=== PATIENT | female | born 1955 | race Two or more races ===

== ENCOUNTER 2019-01-04 08:02 | Day surgery (SDC) | payer MEDICARE, OTHER ==
[~2019-01-04] VITALS: Ht 165.1 cm; Wt 94.8 kg
[~2019-01-04 08:02] MED LIST: ASPI325T41 PO; ATOR1TAB21 PO; CLOP75TA2 PO; FLON1SPR; FURO40TA2 PO; JANU100T PO; LR 1,000 ML IV ONE; METO1TAB87 PO; PANT40TA3 PO; PROAAER10 INH; duoneb INH
[2019-01-04] MEDS ORDERED: MIDAZOLAM INJ 2 MG/2 ML VIAL (J2250) As Ordered ONE (09:30)
[2019-01-04] MEDS ORDERED: CIPRODEX OTIC SUSP 7.5ML As Ordered ONE (09:30)
[2019-01-04] MEDS ORDERED: PROPOFOL 200 MG/20 ML VIAL As Ordered ONE (09:30)
[2019-01-04] MEDS ORDERED: LIDOCAINE 2% INJ 100 MG/5 ML SDV (FOR ANES.) As Ordered ONE (09:30)
[2019-01-04] MEDS ORDERED: fentaNYL 100 MCG/2 ML INJECTION (J3010) As Ordered ONE (09:31)
[2019-01-04] MEDS ORDERED: PHENYLephrine HCL 500 MCG/5 ML (100MCG/ML) SYRINGE (J2370) As Ordered ONE (09:57)
[2019-01-04] MEDS ORDERED: ePHEDrine SULFATE 25 MG/5 ML(5MG/ML) SYRINGE As Ordered ONE (09:57)
[2019-01-04] MEDS: PERCOCET 5MG/325MG TAB PO PRN ×2 (10:29→11:18)
[2019-01-04] MEDS ORDERED: ONDANSETRON 4MG/2ML VIAL (J2405) IV PRN (10:30)
[2019-01-04] MEDS ORDERED: fentaNYL 100 MCG/2 ML INJECTION (J3010) IV PRN (10:30)
[2019-01-04] MEDS ORDERED: LR 1,000 ML IV SCH ×2 (10:30)
[2019-01-04] MEDS ORDERED: METOCLOPRAMIDE INJ 10MG/2ML VIAL (J2765) IV PRN (10:30)
[2019-01-04 12:25] VITALS: BP 171/77
== END 2019-01-04 12:30 | disposition home or self-care (01) ==
LOC: M SDC 08:02
PROVIDERS: ATTEND Otolaryngology
DX: H65.21 Chronic serous otitis media, right ear (principal); H69.82 Other specified disorders of Eustachian tube, left ear; E11.9 Type 2 diabetes mellitus without complications; I10 Essential (primary) hypertension; E78.5 Hyperlipidemia, unspecified; J44.9 Chronic obstructive pulmonary disease, unspecified; Z95.5 Presence of coronary angioplasty implant and graft; I25.10 Atherosclerotic heart disease of native coronary artery without angina pectoris; F17.210 Nicotine dependence, cigarettes, uncomplicated; Z79.82 Long term (current) use of aspirin; Z79.02 Long term (current) use of antithrombotics/antiplatelets; Z79.899 Other long term (current) drug therapy; Z88.8 Allergy status to other drugs, medicaments and biological substances
CPT/HCPCS: 69436; J2250; J2370; J3010

== ENCOUNTER 2019-10-21 20:34 | Inpatient (IN) | payer MEDICARE, OTHER ==
[~2019-10-21] VITALS: Ht 165.1 cm; Wt 90.0 kg
[~2019-10-21 20:34] MED LIST changes: -LR 1,000 ML IV ONE
[2019-10-21 23:22] VITALS: BP 138/72
[2019-10-22] VITALS: BP 138/72
[2019-10-22] MEDS ORDERED: NS 1,000 ML IV SCH (00:15)
--- NOTE | 2019-10-22 00:32 | HPEPDOC ---
[facility] Medical History & Physical Date of Admission Oct 22, 2019 Date of Service: Oct 22, 2019 Attending Physician: JOSE ELIAS WALDROP MD History and Physical CHIEF COMPLAINT: Acute kidney injury HISTORY OF PRESENT ILLNESS: 63-year-old female with past medical history of coronary artery disease, status post stent placement, COPD, hypertension and diabetes mellitus presents from [facility] for acute kidney injury. She was admitted to [facility] for chest pain, was started on antibiotics for presumed sepsis and received Toradol for pain control. She developed worsening acute kidney injury today, last creatinine was greater than 4 with hyperkalemia. Patient is currently comfortable in bed, without any complaints, has Mcfarland with small amounts of slightly colored urine. She denies any chest pain, shortness of breath, nausea, vomiting, diarrhea or constipation. 10 point review of system is negative except for above PAST MEDICAL HISTORY: 1. Coronary artery disease. 2. Hypertension. 3. Diabetes mellitus. 4. Hyperlipidemia. 5. COPD PAST SURGICAL HISTORY: 1. Coronary stent placement. 2. Appendectomy. SOCIAL HISTORY: Smokes half a pack per day. Denies alcohol use. Denies drug use FAMILY HISTORY: Sr. had kidney failure ALLERGIES: Please see below. HOME MEDICATIONS: Please see below. PHYSICAL EXAMINATION: VITAL SIGNS: Please see below. GENERAL: No distress HEENT: Normocephalic, atraumatic, moist mucous membranes NECK: Supple CARDIOVASCULAR EXAMINATION: S1, S2, no murmurs RESPIRATORY EXAMINATION: Clear to auscultation, no wheezing ABDOMINAL EXAMINATION: Soft, nontender, nondistended, positive bowel sounds EXTREMITIES: Range of motion intact SKIN: No rash NEUROLOGICAL EXAMINATION: Alert and oriented 3, no focal deficits PSYCHIATRIC EXAMINATION: Calm and cooperative LABORATORY DATA: See below. MICROBIOLOGY: Please see below. ASSESSMENT: 63-year-old female with multiple medical comorbidities, [facility] with acute kidney injury. . PLAN: 1. Acute kidney injury Possibly due to NSAIDs/diuretics, gentle IV hydration, repeat BMP, renal ultrasound pending. 2. Coronary artery disease. Status post stent placement, continue aspirin, Plavix and statin. 3. Diabetes mellitus. Sliding scale insulin coverage at meals and at bedtime 4. COPD Stable, continue home regimen. Supplemental oxygen as needed to maintain O2 sats between 88-92% DVT prophylaxis: Heparin subcutaneous. GI prophylaxis: home PPI Home Medications Scheduled Aspirin (Aspirin EC) 325 Mg Tablet.dr, 325 MG PO DAILY Atorvastatin Calcium (Atorvastatin Calcium) 20 Mg Tablet, 20 MG PO DAILY Clopidogrel Bisulfate (Clopidogrel) 75 Mg Tablet, 75 MG PO DAILY Fluticasone Propionate (Flonase Allergy Relief) 9.9 Ml Media.susp, 50 MCG NA DAILY Furosemide (Furosemide) 40 Mg Tablet, 40 MG PO BID Metoprolol Tartrate (Metoprolol Tartrate) 25 Mg Tablet, 25 MG PO DAILY Pantoprazole Sodium (Pantoprazole Sodium) 40 Mg Tablet.dr, 40 MG PO BID Sitagliptin Phosphate (Januvia) 100 Mg Tablet, 100 MG PO DAILY Scheduled PRN Albuterol Sulfate (Proair Hfa) 8.5 Gm Hfa.aer.ad, 2 PUFF INH TIDP PRN for SOB/WHEEZING [duoneb] , 1 DOSE INH TIDP PRN for SOB/WHEEZING Allergies Coded Allergies: prochlorperazine (Verified Allergy, Severe, tongue swelling, facial spasms, throat tightness, 01/02/19) sumatriptan (Verified Adverse Reaction, Intermediate, rapid HR, diaphoretic, 01/02/19) A-FIB/CHADSVASC A-FIB History Current/History of A-Fib/PAF?: No JOSE ELIAS WALDROP MD Oct 22, 2019 00:32
[2019-10-22] MEDS ORDERED: DEXTROSE 50% 50 ML SYRINGE IV PRN (00:45)
[2019-10-22] MEDS ORDERED: GLUCAGON INJ 1MG VIAL SC PRN (00:45)
[2019-10-22] MEDS ORDERED: GLUCOSE 4GM CHEW TABLET PO PRN (00:45)
[2019-10-22] MEDS ORDERED: IPRA0.00 NEB (00:46)
[2019-10-22 00:53] LABS: HEMATOCRIT 31.3 % (36.0-47.0); HEMOGLOBIN 9.7 g/dl (12.0-15.5); MEAN CORPUSCULAR HEMOGLOBIN 30.3 pg (27.0-33.0); MEAN CORPUSCULAR VOLUME 97.8 fl (80.0-96.0); PLATELET COUNT, AUTOMATED 334 10^3/uL (150-450); WHITE BLOOD COUNT 22.5 10^3/uL (4.0-10.0)
[2019-10-22 01:05] LABS: ALBUMIN 2.2 GM/DL (3.2-5.2); BILIRUBIN,TOTAL 0.1 MG/DL (0.2-1.0); CALCIUM LEVEL 7.6 MG/DL (8.8-10.2); CREATININE FOR GFR 4.16 MG/DL (0.55-1.30); GLOMERULAR FILTRATION RATE 11.5 (>45); POTASSIUM SERUM 5.4 MEQ/L (3.5-5.1); TOTAL PROTEIN 6.9 GM/DL (6.4-8.2)
[2019-10-22] MEDS ORDERED: PATIROMER SORBITEX CALCIUM 8.4 GM POWDER PACKET (VELTASSA) PO ONE (03:00)
--- NOTE | 2019-10-22 03:29 | REPVR ---
PROCEDURE INFORMATION: Exam: US Retroperitoneal Limited, Kidneys Exam date and time: 10/22/2019 3:00 AM Age: 63 years old Clinical indication: Abnormal findings; Abnormal lab test; Abnormal kidney function lab tests; Additional info: Ruy TECHNIQUE: Imaging protocol: Real-time ultrasound of the retroperitoneum with image documentation. Examination was focused on the kidneys. COMPARISON: No relevant prior studies available. FINDINGS: Right kidney: The right kidney measures 12.3 cm in its cephalocaudad dimension and 7.2 x 5.4 cm in diameter. The renal parenchyma is echogenic. There are several simple appearing cysts with the largest noted in the upper pole measuring 3.7 x 3.1 x 2.5 cm and in the lower pole measuring 3.5 x 2.9 x 2.4 cm. No mass or hydronephrosis. Left kidney: The left kidney measures 12.6 cm in its cephalocaudad dimension and 6.0 x 4.6 cm in diameter. The parenchyma is echogenic. There are several cysts measuring 1.2 x 1.4 x 1.2 cm and 2.1 x 1.8 x 2.2 cm in the upper pole. No mass or hydronephrosis. Bladder: The urinary bladder is collapsed with Mcfarland in position. IMPRESSION: 1. Echogenic renal parenchyma consistent with medical renal disease. 2. Bilateral renal cysts. 3. Otherwise negative renal sonogram. No hydronephrosis. Electronically signed by: Jose Angel Ibanez On 10/22/2019 03:29:03 AM
[2019-10-22 04:00] VITALS: BP 151/70
[2019-10-22] MEDS: ACETAMINOPHEN TAB 650MG DOSE (2X325MG) PO PRN (05:19)
[2019-10-22 08:00] VITALS: BP 168/85
[2019-10-22] MEDS: HEPARIN SOD (PORCINE) 5000UNITS/ML VIAL (J1644 PER 1000UNITS) SC SCH ×2 (09:44→21:09)
[2019-10-22] MEDS: ASPIRIN ENTERIC 325 MG TAB PO SCH (09:44)
[2019-10-22] MEDS: ATORVASTATIN 20 MG TAB PO SCH (09:47)
[2019-10-22] MEDS: METOPROLOL TART 25 MG TABLET PO SCH (09:47)
[2019-10-22] MEDS: CLOPIDOGREL 75 MG TAB PO SCH (09:47)
[2019-10-22] MEDS: PANTOPRAZOLE 40MG TAB (PROTONIX) PO SCH ×2 (09:47→21:09)
[2019-10-22] MEDS: HumaLOG INSULIN (NovoLOG) PER UNIT SC SCH ×4 (09:55→21:00)
[2019-10-22 10:17] LABS: HEMATOCRIT 31.6 % (36.0-47.0); HEMOGLOBIN 9.8 g/dl (12.0-15.5); MEAN CORPUSCULAR VOLUME 96.6 fl (80.0-96.0); PLATELET COUNT, AUTOMATED 360 10^3/uL (150-450); RED BLOOD COUNT 3.27 10^6/uL (4.00-5.40); WHITE BLOOD COUNT 21.9 10^3/uL (4.0-10.0)
[2019-10-22 10:37] LABS: C REACTIVE PROTEIN QUANTITATIV 9.98 MG/DL (0.00-0.30); CALCIUM LEVEL 7.7 MG/DL (8.8-10.2); CREATININE FOR GFR 4.15 MG/DL (0.55-1.30); GLOMERULAR FILTRATION RATE 11.5 (>45)
[2019-10-22 10:40] LABS: ERYTHROCYTE SEDIMENTATION RATE 125 mm/hr (0-30)
[2019-10-22] MEDS: cefTRIAXone SOD 2 GM in D5W MINI-BAG PLUS 50 ML IV SCH (10:48)
--- NOTE | 2019-10-22 10:56 | REP ---
CHEST X-RAY: Two views. HISTORY: Elevated white blood cell count. COMPARISON CHEST X-RAY: October 03, 2008. FINDINGS: There is mild cardiac enlargement. Cardiothoracic ratio is 57.2%. Pulmonary vasculature is not increased. There are linear opacities in the right base consistent with plate-like atelectasis. There are two tiny linear plate-like atelectatic densities in the left base. Pleural angles are sharp. No significant bony abnormality. IMPRESSION: The left base and right perihilar plate-like atelectasis. No definite infiltrate. Mild cardiomegaly. Electronically Signed by Riley Ortiz MD 10/22/2019 02:55 P
[2019-10-22 11:46] VITALS: BP 140/65
[2019-10-22] MEDS ORDERED: AZITHROMYCIN INJ 500 MG, VIAL MATE ADAPTER 1 EACH in D5W 250 ML IV SCH (12:00)
--- NOTE | 2019-10-22 12:25 | REP ---
REASON: Leukocytosis. There are no priors for comparison. The lack of intravenous contrast and oral bowel preparatory contrast decreases the sensitivity of the exam. The patient is status post cholecystectomy. There are no gross liver or spleen abnormalities. The pancreas is atrophic but otherwise grossly within normal limits. There is bilateral low density adrenal gland thickening. There are multiple mixed and low density structures arising from each kidney too numerous or count or individually assess with the smaller lesions being based on the renal cortex and having much higher than water density Hounsfield unit readings while the larger of the structures have water density Hounsfield unit readings. In addition, there are multiple bilateral nonobstructing nephroliths some of which are renovascular in origin. There is bilateral perinephric stranding. There is an infrarenal abdominal aortic aneurysm having a maximal AP dimension of 3.9 cm outside wall to outside wall and a length of approximately 7.7 cm. This is difficult to evaluate without intravenous contrast. No free fluid or free air is seen in the abdomen or pelvis. The intra-abdominal and intrapelvic bowel loops and their mesenteries are within normal limits. There is no evidence of an intra-abdominal or intrapelvic mass or adenopathy. Bone window technique throughout the examination shows the osseous structures to be within normal limits for the patient's age. IMPRESSION: 1. Abdominal aortic aneurysm as described above. 2. Bilateral renal abnormalities has described above. Pre- and postcontrast-enhanced renal MRI is recommended for further evaluation. If the patient is a candidate for MRI pre- and post gadolinium enhanced renal MRI could be obtained if the patient's creatinine is too high to allow for the iodinated contrast injection for CT. Electronically Signed by Pankaj Moreno DO 10/22/2019 04:02 P
--- NOTE | 2019-10-22 12:30 | REP ---
REASON: Leukocytosis. There are no priors. The lack of intravenous contrast decreases the sensitivity of the exam. Multiple nonenlarged mediastinal nodes are present. Hilar adenopathy cannot be ruled out. There are no pleural or pericardial effusions. There is mild pericardial thickening. Evaluation of the osseous structures show the osseous structures to be within normal limits for the patient's age. Evaluation of the lung restrepo show curvilinear bibasilar opacities likely subsegmental atelectatic changes and/or fibrotic changes. There are no significant masses or nodules. Early emphysematous changes are seen in the lung apical regions bilaterally. There is evidence of early cylindrical bronchiectasis particularly in the lung bases. IMPRESSION: Findings as described above. Basilar opacities likely subsegmental atelectatic changes and/or fibrotic changes. Other findings as described above. Electronically Signed by Pankaj Moreno DO 10/22/2019 04:03 P
[2019-10-22] MEDS ORDERED: oxyCODONE 5MG TAB PO ONE (12:45)
[2019-10-22 13:05] LABS: PERCENT SATURATION 10.7 % (13.2-45.0)
--- NOTE | 2019-10-22 13:25 | CR ---
DATE OF CONSULTATION: 10/22/2019 REQUESTING PHYSICIAN: Dr. Kelli Willson CONSULTING PHYSICIAN: Dr. Gaona REASON FOR CONSULTATION: Management of acute renal failure. CHIEF COMPLAINT: The patient was transferred from [facility] because of acute kidney injury. HISTORY OF PRESENT ILLNESS: Thong Rowan is 63-year-old female with past medical history of hypertension, coronary artery disease, diabetes mellitus type 2, history of chronic obstructive pulmonary disease (COPD) and coronary artery stenting in the past. She initially presented to [facility] with chest pain. She was admitted under the hospitalist service and cardiology saw her there. She was given empiric antibiotics for possible sepsis and she was given Toradol for chest pain. The patient became oliguric after use of Toradol and she developed acute kidney injury with a creatinine of 4.4 along with hyperkalemia. Potassium was more than 6. There was no nephrology service available in [facility], so patient was discussed with myself by Dr. Saldana and she was transferred overnight under the hospitalist service. Nephrology service was called onboard for further management of acute renal failure. I saw and evaluated the patient today morning at the bedside. The patient does not followup with nephrology but she does report that there is positive family history of "lumpy kidneys in the family members." Her sister developed renal failure. She needed a transplant that worked for 12 years and her sister is . There is another sister who has renal failure as well and she a few years ago as well. The patient's mother and aunt also had renal failure. PAST MEDICAL HISTORY: Past medical history of hypertension, diabetes mellitus type 2, hyperlipidemia, COPD, and coronary artery disease. PAST SURGICAL HISTORY: Status post coronary artery stent placement, history of appendectomy in the past. ALLERGIES: The patient is allergic to SUMATRIPTAN and PROCHLORPERAZINE. FAMILY HISTORY: As mentioned in history of present illness (HPI), there is positive history of her "lumpy kidneys in the family members", history of renal failure in mother and two sisters. One sister had kidney transplant as well. REVIEW OF SYSTEMS: Constitutional: She denies any fevers or chills at this time. Eyes: She denies any blurry vision, double vision. ENT: She denies any dysphagia or odynophagia. Cardiovascular: She does report some central chest pain. She denies any palpitation. Respiratory: She denies any shortness of breath or cough. Gastrointestinal (GI): She denies any nausea, vomiting. Genitourinary: She denies any dysuria or hematuria. She does report decreased urine output and she currently has a Mcfarland catheter. Musculoskeletal: She denies any muscle aches and pains. Skin: She denies any rashes or ulcers. Hematology/Oncology: She denies any easy bleeding or bruising. Central Nervous System (SHAKE SAWYER): She denies any strokes or seizures. All other review of systems is negative. PHYSICAL EXAMINATION: General: The patient is awake, alert, oriented times three, laying in bed. Vital Signs: Temperature is 97.1 degrees Fahrenheit, blood pressure 140/65, pulse is 82, respiratory rate of 20, saturating 95% on nasal cannula at 3 liters. Intake and Output: Urine output recorded so far since overnight is 575 mL. Head/Neck Exam: Extraocular muscles intact. Pupils equally round and reactive to light. Mucous membranes are moist. Neck is supple. There is no jugular venous distention (JVD). Cardiovascular: S1, S2, regular rate. No edema of the bilateral lower extremities. Respiratory: Chest is clear to auscultation bilaterally. Bilateral equal air entry. No rales or rhonchi. Abdomen: Soft. Obese. Positive bowel sounds. Nontender. No organomegaly. Genitourinary: She has an indwelling Mcfarland catheter. There is some cloudy urine in the bag. Musculoskeletal: No clubbing or cyanosis. Pulses are 2+. SHAKE SAWYER: No focal deficit. Power is 5/5 in all extremities. LABORATORY REVIEW: CBC showed a WBC of 22.5 on arrival, it is 21.9 today. Hemoglobin is 9.8. Platelets are 360. There is no urinalysis available. BMP showed sodium 134, potassium 5, chloride 100, bicarbonate is 20, BUN 70, creatinine is 4.1, calcium 7.7. C-reactive protein is 9.9. Procalcitonin is pending. Blood cultures are pending. IMAGING: A chest x-ray was done today morning, which showed left base and right perihilar platelike atelectasis. No definitive infiltrate. Renal ultrasound was done, which showed echogenic renal parenchyma consistent with medical renal disease. There were bilateral renal cysts on both sides. There was no evidence of any mass or hydronephrosis. CURRENT INPATIENT MEDICATIONS: - The patient is getting azithromycin 500 mg IV daily. - Rocephin 2 grams IV daily - She is getting normal saline at 80 mL/h, which I am stopping and starting the patient on half normal saline plus 75 mEq of bicarbonate at 80 mL/h. - She is getting Tylenol as needed. - Proventil as needed - aspirin 325 mg by mouth daily - Lipitor 20 mg at bedtime - Plavix 75 mg by mouth daily - heparin 5000 units every 12 hours - insulin lispro sliding scale - metoprolol tartrate 25 mg by mouth daily - Protonix 40 mg by mouth twice a day - She was given one dose of Veltassa. ASSESSMENT: 63-year-old female with past medical history of diabetes mellitus type 2, coronary artery disease, hypertension, hyperlipidemia, admitted this time with acute renal failure. PLAN: 1. Acute renal failure. Looking at the patient's imaging and history of polycystic kidney disease requiring transplant in one of her sisters most likely the patient has baseline chronic kidney disease secondary to polycystic kidney disease and this time she developed acute renal failure due to use of Toradol. The patient is nonoliguric at this time. I am hopeful that her renal function should improve to baseline. I will try to get her baseline renal function from the primary care office. Continue to monitor intake and output. Continue gentle IV fluid hydration. There is no urgent need of hemodialysis at this time. However, if the patient develops worsening hyperkalemia and metabolic acidosis, then she might need to do hemodialysis for a few days before her renal function improves. 2. Hyperkalemia. It is secondary to acute renal failure. Potassium was 5.4 on arrival. It is 5 today, which is within the acceptable range. Avoid the high potassium foods at this time. 3. Metabolic acidosis. It is secondary to acute renal failure. She has been started on bicarbonate containing fluid that should help improve the acidosis as well. 4. History of coronary artery disease. The patient is complaining of chest pain. She is currently on aspirin and Plavix. She is also on to atorvastatin. Continue the current dose of metoprolol as well. 5. Diabetes mellitus, type 2. Okay to continue current dose of insulin sliding scale. Avoid use of metformin in this patient at this time. 6. Leukocytosis and elevated C-reactive protein. The patient got a CAT scan of the chest, abdomen, and pelvis. A source of the infection is not known. She is adequately covered with azithromycin and ceftriaxone at this time. Cultures are still pending. 7. Anemia and chronic kidney disease. Hemoglobin level is suboptimal. I am going to check the iron, B12, and folic acid level. Thank you for involving me in the care of this patient. I shall be happy to follow the patient along with you tomorrow morning.
[2019-10-22] MEDS ORDERED: SODIUM BICARBONATE 75 MEQ in NS 0.45% 1,000 ML IV SCH (15:00)
--- NOTE | 2019-10-22 18:05 | IPN ---
DATE: 10/22/2019 Patient says that she was not feeling well at home and presented to [facility] when she was told that she had some pneumonia, treated with intravenous (IV) antibiotics and transferred to [facility] due to acute renal failure, creatinine of 4. Patient says that she was taking Tylenol and aspirin; aspirin was every other day, did not take any nonsteroidal anti-inflammatory drugs (NSAIDS). No diarrhea or vomiting at [facility]. Patient says that she currently has sputum production, white. No chills or fever overnight. Telemetry otherwise unremarkable, urinating via Mcfarland catheter 575 out. Vital Signs: Temperature 97.3, pulse 82, respiratory rate 21, blood pressure 168/85, 99% on 3 liters nasal cannula. Generally, patient does have some dyspnea on conversation, about 5 to 6 word dyspnea with use of respiratory accessory muscles. No jugular venous distention (JVD) or thyromegaly. Lungs: Diminished, bibasilar crackles. Heart: S1, S2, sinus rhythm. Abdomen is soft, obese, nontender, nondistended. Extremities: Trace edema. Repeat laboratory data is pending. White count 22, hemoglobin 9.7, hematocrit 31, platelet count 334. Metabolic panel is notable for creatinine of 4.16, repeat is unavailable. CURRENT MEDICATIONS: - heparin subcu - insulin - aspirin - Lipitor - Plavix - metoprolol - Protonix - albuterol - normal saline 80 an hour ASSESSMENT AND PLAN: This is a 63-year-old female, transferred from [facility] with cough sob and renal failure, history of coronary artery disease, hypertension, diabetes, chronic obstructive pulmonary disease (COPD), and hyperlipidemia. CURRENT ISSUES: 1. Acute kidney injury. nephrology consulted.family h/o polycystic kidney dz, Renal ultrasound has no hydronephrosis or kidney stone. Monitor intake and output, daily weights and strict fluid restriction. Obtain CT abdomen and pelvis and CT chest. on iv bicarb gtt. ua urine cx. 2. sepsis due to b/l pyelo. White count is elevated at 22,000. started on iv ceftriaxone until urine cx returns. 3. Hypertension, stable. Resumed on home medications. 4. Obesity. Body mass index (BMI) of 34, complicating her care. [facility]ALLS HOSPITALAdrianna
[2019-10-22 20:00] VITALS: BP 176/85
[2019-10-22] MEDS: oxyCODONE 5MG TAB PO PRN (21:09)
--- NOTE | 2019-10-23 00:02 | ECHO ---
DATE OF PROCEDURE: 10/22/2019 REFERRING PHYSICIAN: Dr. Sinai Foss INDICATION: Dyspnea. Height 165 cm, weight 94 kg. DIMENSIONS: IVS: 1.4 LV: 5.2 LVPW: 1.4 LA: 4.3 Aorta: 2.7 IVC: 2.3 Mitral E wave velocity: 101 A wave: 79 E prime septal: 3.7 E prime lateral: 3.7 FINDINGS: The study is of very limited technical quality with poor visualization. The patient is in sinus rhythm. Left ventricle has normal size. Mild to moderate left ventricular hypertrophy is present. Overall there is low normal LV systolic function based on somewhat limited views. I estimate ejection fraction (EF) around 50-55%. Subtle wall motion abnormalities that are segmental in nature cannot be ruled out. Right ventricle was relatively poorly seen but does not appear grossly enlarged and is normally contractile. Both atria are enlarged. Aortic valve is sclerotic but it has three cusps and relatively preserved mobility. There are mild degenerative abnormalities of mitral valve with mitral annular calcifications. Tricuspid valve appears normal. Pulmonic valve was not well seen. No pericardial effusion is noted. Inferior vena cava is dilated, and there is limited collapse with inspiration indicative of high central venous pressure. Aortic root appears normal. Aortic arch was not well seen. Abdominal aorta was not visualized at all. Doppler interrogation reveals competent aortic valve without significant stenosis or insufficiency. There is mild to moderate mitral insufficiency and mild tricuspid insufficiency. Calculated pulmonary artery pressure is at least around 50 mmHg corresponding to moderate pulmonary hypertension. Mitral inflow pattern and tissue Doppler imaging of mitral annulus revealed grade 2 diastolic dysfunction. CONCLUSIONS: 1. Study is of fair technical quality was limited visualization. The patient is in sinus rhythm. 2. Normal left ventricular (LV) size with mild to moderate left ventricular hypertrophy (LVH), low normal LV systolic function with estimated left ventricular ejection fraction (LVEF) 50-55% and grade 2 diastolic dysfunction. 3. Aortic sclerosis but no stenosis or insufficiency. 4. Mild to moderate mitral insufficiency. 5. High central venous pressure and at least moderate pulmonary hypertension. COMMENT: Subacute bacterial endocarditis (SBE) prophylaxis is not recommended. The study is overall most consistent with hypertensive heart disease with likely secondary pulmonary hypertension due to diastolic dysfunction.
[2019-10-23 04:00] VITALS: BP 188/102
[2019-10-23] MEDS: oxyCODONE 5MG TAB PO PRN ×3 (04:03→22:23)
[2019-10-23 05:29] LABS: HEMOGLOBIN 9.5 g/dl (12.0-15.5); MEAN CORPUSCULAR HEMOGLOBIN 29.7 pg (27.0-33.0); MEAN CORPUSCULAR HGB CONC 31.7 g/dl (32.0-36.5); MEAN CORPUSCULAR VOLUME 93.8 fl (80.0-96.0); PLATELET COUNT, AUTOMATED 366 10^3/uL (150-450); WHITE BLOOD COUNT 12.4 10^3/uL (4.0-10.0)
[2019-10-23 05:41] LABS: CALCIUM LEVEL 7.4 MG/DL (8.8-10.2); CREATININE FOR GFR 3.7 MG/DL (0.55-1.30); GLOMERULAR FILTRATION RATE 13.2 (>45)
[2019-10-23 08:00] VITALS: BP 152/88
[2019-10-23] MEDS: HumaLOG INSULIN (NovoLOG) PER UNIT SC SCH ×4 (08:44→22:23)
[2019-10-23] MEDS: ASPIRIN ENTERIC 325 MG TAB PO SCH (08:45)
[2019-10-23] MEDS: HEPARIN SOD (PORCINE) 5000UNITS/ML VIAL (J1644 PER 1000UNITS) SC SCH ×2 (08:45→22:22)
[2019-10-23] MEDS: ATORVASTATIN 20 MG TAB PO SCH (08:45)
[2019-10-23] MEDS: PANTOPRAZOLE 40MG TAB (PROTONIX) PO SCH ×2 (08:45→22:21)
[2019-10-23] MEDS: CLOPIDOGREL 75 MG TAB PO SCH (08:45)
[2019-10-23] MEDS: METOPROLOL TART 25 MG TABLET PO SCH (08:46)
[2019-10-23] MEDS: amLODIPine 5 MG TAB PO SCH (08:46)
[2019-10-23] MEDS: cefTRIAXone SOD 2 GM in D5W MINI-BAG PLUS 50 ML IV SCH (11:24)
[2019-10-23 12:00] VITALS: BP 162/86
[2019-10-23] MEDS: FERROUS GLUCONATE 324 MG TAB PO SCH (12:19)
[2019-10-23] MEDS: BICITRA 30ML SOLN UDC PO SCH ×2 (12:19→22:21)
[2019-10-23] MEDS: ALBUTEROL 90 MCG/ACT 8GM HFA INHALER INH PRN (13:03)
[2019-10-23 16:00] VITALS: BP 146/80
--- NOTE | 2019-10-23 16:58 | IPN ---
DATE: 10/23/2019 SUBJECTIVE: The patient was seen and examined at the bedside today morning. She is afebrile, hemodynamically stable. Her blood pressures are elevated. She is making more urine. There is slight improvement in the creatinine today. The patient has developed hematuria through the catheter, and she feels like she might have tugged on the catheter. She denies any other active complaints. OBJECTIVE: Vital signs: Temperature is 97.1 degrees Fahrenheit, blood pressure 152/88, pulse is 90, respiratory of 17, saturating 93% on room air. Intake and output: Urine output recorded is 1800 mL yesterday, 375 mL so far today since overnight. Weight in the bed scale is 99.2 kg. PHYSICAL EXAMINATION: General: The patient is awake, alert, oriented times three, laying in bed, in no apparent distress. Head and neck exam: Extraocular muscles intact. Pupils equally round and reactive to light. Mucous membranes are moist. Neck is supple. There is no jugular venous distention (JVD). Cardiovascular: S1, S2, regular rate. No edema of the bilateral lower extremities. Respiratory: Chest is clear to auscultation bilaterally. Bilateral equal air entry. No rales or rhonchi. Abdomen: Soft, obese, positive bowel sounds. Nontender. No organomegaly. Genitourinary: She has an indwelling Mcfarland catheter. Urine in the bag is bloody. Musculoskeletal: No clubbing or cyanosis. Pulses are 2+. Central nervous system ([employer]): No focal deficit. Power is 5/5 in all extremities. LAB REVIEW: CBC showed a WBC of 12.4, hemoglobin 9.5, platelets are 366. Urinalysis done yesterday showed 2+ protein and 3+ blood, too numerous to count RBCs. BMP done today morning showed sodium 132, potassium 5, chloride 102, bicarbonate 20, BUN 73, creatinine is 3.7. CURRENT INPATIENT MEDICATIONS: The patient's medications were all reviewed by myself. She was getting half-normal saline with 75 mEq of bicarb. She has received 1 liter so far, but I have stopped the fluids because of elevated blood pressures. She continues to be on IV ceftriaxone. I have started the patient on amlodipine 5 mg daily, and she reports that she takes amlodipine at home as well, and she has been started on Bicitra 30 mL by mouth twice a day. No other significant change in the medications today as compared with yesterday. ASSESSMENT/PLAN: 1. Acute renal failure. The patient has polycystic kidney disease and on top of that she was given Toradol at the outside hospital, which caused acute renal failure. However, the patient is making more urine with the IV fluid hydration. Creatinine is coming down. I am hopeful that we should be able to avoid hemodialysis. Renal function is gradually improving. 2. Metabolic acidosis. The patient was given IV bicarb in the fluids. However, IV fluids are being stopped because of high blood pressure. I have started the patient on oral Bicitra 30 mL twice a day. 3. Hypertension. The patient has hypertension, most likely associated with polycystic kidney disease. She is not a candidate for angiotensin-converting enzyme (VANDANA) or ARB at this time because of acute renal failure. Continue metoprolol. I have added amlodipine 5 mg by mouth daily. 4. History of coronary artery disease. Continue current dose of aspirin, Plavix and atorvastatin, along with metoprolol. 5. Hematuria. Most likely is traumatic. I am going to have the Mcfarland catheter removed. 6. Diabetes mellitus, type 2. Continue current dose of insulin sliding scale. 7. Leukocytosis and elevated C-reactive protein. Continue current dose of ceftriaxone. WBC count is improving. 8. Iron deficiency anemia. She has been started on oral iron. IV iron will be given after leukocytosis and infection counts get better.
[2019-10-23 17:30] VITALS: BP 158/80
--- NOTE | 2019-10-23 17:31 | IPNPDOC ---
Date Seen The patient was seen on 10/23/19. Progress Note SUBJECTIVE: Complains of some epigastric discomfort similar to hiatal hernia pain, chronic. IVF stopped due to BP high, Cr improving slowly, nephrology following closely. U/O good, denies chest pain, n/v/d, fevers, shortness of breath. OBJECTIVE: VITAL SIGNS: Please see below PHYSICAL EXAMINATION: CONSTITUTIONAL: No acute distress, resting comfortably, AAO x 3 EYES: PERRLA, EOM intact HENT, MOUTH: Normocephalic, atraumatic, moist mucous membranes NECK: SUPPLE, no JVD, no lymphadenopathy, no carotid bruit CV: Regular rate and rhythm, S1S2 normal, no murmurs/rubs/gallops RESPIRATORY: Clear to auscultation bilaterally, no rales/rhonchi/wheezes GI: Abdominal discomfort, epigastric. Obese abd. BS positive in 4 quadrants, soft,nondistended, no rebound or guarding, no organomegaly : Deferred MUSCULOSKELETAL: Normal ROM. No cyanosis, clubbing, swelling, joint deformity, extremity edema INTEGUMENTARY: Intact, no rashes, no lesions, no erythema NEUROLOGIC: Cranial Nerves II-XII are intact, no focal deficits PSYCHIATRIC: Mood and affect are normal CURRENT MEDICATIONS: Please see below LABORATORY DATA: Please see below IMAGING: CT abd/pelvis: 1. Abdominal aortic aneurysm as described above. 2. Bilateral renal abnormalities has described above. Pre- and postcontrast-enhanced renal MRI is recommended for further evaluation. If the patient is a candidate for MRI pre- and post gadolinium enhanced renal MRI could be obtained if the patient's creatinine is too high to allow for the iodinated contrast injection for CT. ASSESSMENT: 63 y/o F admitted for bilateral pyelonephritis, resolved sepsis. PLAN: 1. Bilateral pyelonephritis, resolved sepsis. WBC 12K from 22K. Afebrile. UCx pending. C/w ceftriaxone, daily CBC 2. Acute renal failure likely 2/2 to polycystic kidney disease (PCKD) and medication (toradol). Cr slightly improved but still elevated at 3.7. Stopped bicarb fluid due to HTN, avoid nephrotoxic medications. Making good urine. Bicitra BID. Nephrology following. 3. Metabolic acidosis. C/w bicitra, IV bicarb started. F/u daily labs. Nephrolog y following. 4. HTN likely 2/2 to PCKD . BP 180's systolic. Not candidate for ACEi, ARB due to BRIGITTE. Stopped IVFs. Started amlodipine, monitor closely. 5. Abdominal aortic aneurysm, incidental finding on CT abd/pelvis. F/u with regularly scheduled US outpatient by PCP. 6. History of coronary artery disease. Denies chest pain, sob. Continue current dose of aspirin, Plavix, atorvastatin, metoprolol. 7. Hematuria likely traumatic. Removing orozco today and will see how urine looks. Monitor CBC. 8. Diabetes mellitus, type 2. BS controlled. C/w AC/HS blood sugar checks, consistent carb diet, ISS. 9. Iron deficiency anemia. C/w PO iron supplement. Would benefit from IV iron after leukocytosis and infection counts get better. 10. DVT px. Heparin. DISPOSITION: Currently admitted under inpatient status. Plan is discharge home when medically improved. VS, I&O, 24H, Fishbone Vital Signs/I&O Vital Signs Date Time Temp Pulse Resp B/P (MAP) Pulse Ox O2 Delivery O2 Flow Rate FiO2 10/23/19 16:23 18 Room Air 10/23/19 16:00 96.5 71 146/80 (102) 98 10/23/19 16:00 3.0 I&O- Last 24 Hours up to 6 AM 10/23/19 05:59 Intake Total 900 ml Output Total 1725 ml Balance -825 ml Laboratory Data 24H LABS Laboratory Tests 2 10/22/19 17:51: Bedside Glucose (Misc Panel) 118H 10/22/19 18:00: 10/22/19 21:11: Bedside Glucose (Misc Panel) 176H 10/23/19 05:06: Nucleated Red Blood Cells % (auto) 0.0, Anion Gap 10, Glomerular Filtration Rate 13.2L, Calcium Level 7.4L 10/23/19 12:20: Bedside Glucose (Misc Panel) 144H 10/23/19 17:22: Bedside Glucose (Misc Panel) 115 CBC/BMP Laboratory Tests 10/23/19 05:06 Microbiology Microbiology 10/22/19 Urine Culture - Final, Complete 10/22/19 Respiratory Virus Panel (PCR) (JUAN) - Final, Complete 10/22/19 Blood Culture - Preliminary, Resulted No growth after 24 hours . All specim... 10/22/19 Blood Culture - Preliminary, Resulted No growth after 24 hours . All specim... Current Medications Current Medications Medications (Trade) Dose Ordered Sig/Ronit Route PRN Reason Start Time Stop Time Status Last Admin Dose Admin Acetaminophen (Tylenol Tab) 650 mg Q6HP PRN PO PAIN / FEVER 10/22/19 04:00 10/22/19 05:19 Albuterol Sulfate (Proventil, Ventolin Hfa) 2 puff TIDP PRN INH SOB/WHEEZING 10/22/19 01:00 10/23/19 13:03 Amlodipine Besylate (Norvasc) 5 mg DAILY PO 10/23/19 09:00 10/23/19 08:46 Aspirin (Ecotrin) 325 mg DAILY PO 10/22/19 09:00 10/23/19 08:45 Atorvastatin Calcium (Lipitor) 20 mg DAILY@0900 PO 10/22/19 09:00 10/23/19 08:45 Azithromycin 500 mg/IV Miscellaneous Supplies 1 each/ Dextrose 255 ml @ 255 mls/hr Q24H IV 10/22/19 12:00 10/22/19 16:34 DC 10/22/19 13:22 Ceftriaxone Sodium 2 gm/ Dextrose 50 ml @ 100 mls/hr Q24H IV 10/22/19 11:00 10/23/19 11:24 Citric Acid/ Sodium Citrate (Bicitra) 30 ml BID PO 10/23/19 10:45 10/23/19 12:19 Clopidogrel Bisulfate (PLAVix) 75 mg DAILY PO 10/22/19 09:00 10/23/19 08:45 Dextrose (Dextrose 50%) 25 ml ASDIRECTED PRN IV SEE LABEL COMMENTS 10/22/19 00:45 Ferrous Gluconate (Fergon) 324 mg DAILY PO 10/23/19 09:00 10/23/19 12:19 Glucagon (Glucagon) 1 mg ASDIRECTED PRN SC SEE LABEL COMMENTS 10/22/19 00:45 Glucose (Glucose) 16 GM ASDIRECTED PRN PO SEE LABEL COMMENTS 10/22/19 00:45 Heparin Sodium (Porcine) (Heparin) 5,000 units Q12H SC 10/22/19 09:00 10/23/19 08:45 Home Med (Med Rec Complete!) ASDIRECTED XX 10/22/19 01:00 10/22/19 01:00 DC Insulin Human Lispro (HumaLOG INSULIN) SEE PROTOCOL TABLE AC SC 10/22/19 07:30 10/23/19 08:44 Insulin Human Lispro (HumaLOG INSULIN) SEE PROTOCOL TABLE QHS MO 10/22/19 21:00 Metoprolol Tartrate (Lopressor) 25 mg DAILY PO 10/22/19 09:00 10/23/19 08:46 Oxycodone HCl (Roxicodone, Oxyir) 5 mg Q6HP PRN PO PAIN 10/22/19 12:45 10/23/19 15:53 Pantoprazole Sodium (Protonix) 40 mg BID PO 10/22/19 09:00 10/23/19 08:45 Sodium Bicarbonate 75 meq/Sodium Chloride 1,075 ml @ 80 mls/hr [id number] IV 10/22/19 15:00 10/23/19 07:46 DC 10/22/19 17:54 Sodium Chloride 1,000 ml @ 80 mls/hr [id number] IV 10/22/19 00:15 10/22/19 12:34 DC 10/22/19 01:53 Allergies Coded Allergies: prochlorperazine (Verified Allergy, Severe, tongue swelling, facial spasms, throat tightness, 01/02/19) sumatriptan (Verified Adverse Reaction, Intermediate, rapid HR, diaphoretic, 01/02/19) Joyce Garza MD Oct 23, 2019 17:31
[2019-10-23] MEDS: ACETAMINOPHEN TAB 650MG DOSE (2X325MG) PO PRN (18:04)
[2019-10-23 22:00] VITALS: BP 160/89
[2019-10-24 02:15] VITALS: BP 170/95
[2019-10-24] MEDS: ALBUTEROL 90 MCG/ACT 8GM HFA INHALER INH PRN ×2 (02:37→21:07)
[2019-10-24] MEDS ORDERED: oxyCODONE 5MG TAB PO ONE (03:00)
[2019-10-24] MEDS ORDERED: MAALOX 30 ML SUSP *UDC PO ONE (03:00)
[2019-10-24 03:45] VITALS: BP 170/92
[2019-10-24] MEDS ORDERED: MORPHINE 2 MG/ML 1ML VIAL (J2270) IV ONE (04:00)
[2019-10-24] MEDS ORDERED: GI COCKTAIL 50ML BTL(HYOSCYAMINE/MAALOX/LIDOCAINE VISCOUS)(1:3:1) PO ONE (04:30)
--- NOTE | 2019-10-24 05:30 | REPVR ---
PROCEDURE INFORMATION: Exam: CT Abdomen And Pelvis Without Contrast Exam date and time: 10/24/2019 4:30 AM Age: 63 years old Clinical indication: Abdominal pain; Generalized TECHNIQUE: Imaging protocol: Computed tomography of the abdomen and pelvis without contrast. Radiation optimization: All CT scans at this facility use at least one of these dose optimization techniques: automated exposure control; mA and/or kV adjustment per patient size (includes targeted exams where dose is matched to clinical indication); or iterative reconstruction. COMPARISON: CT ABD PELVIS W/O CONTRAST 10/22/2019 11:12 AM FINDINGS: Pleural space: There is partially imaged small bilateral pleural effusions with significant overlying atelectatic changes versus infiltrates. Heart: The heart is enlarged. There is small to moderate pericardial effusion measuring up to 1.1 cm in thickness. Severe coronary vascular calcifications versus stent seen. Mediastinal space: There is a small sliding hiatal hernia. Liver: Normal. No mass. Gallbladder and bile ducts: The patient is status post cholecystectomy. Pancreas: Normal. No ductal dilation. Spleen: Normal. No splenomegaly. Adrenals: There is significant bilateral adrenal gland thickening likely hyperplasia. Kidneys and ureters: There are multiple bilateral simple appearing renal cysts the largest on the right measures 3.6 centimetres and the largest on the left measures 2.8 cm. Few other lesions seen in the kidneys for example axial images 66 and 48 in the left kidney and axial image 64 in the right kidney demonstrate high internal density. There are few bilateral small kidney stones the largest on the right and left measures approximately 4 mm. There is no ureteral stones or hydronephrosis. There is bilateral perinephric stranding. Stomach and bowel: Unremarkable. No obstruction. No mucosal thickening. Appendix: No evidence of appendicitis. Intraperitoneal space: Unremarkable. No free air. No significant fluid collection. Vasculature: There is fusiform aneurysmal dilatation of the infrarenal abdominal aorta measuring up to 4.1 cm, grossly unchanged since the prior exam. Lymph nodes: Unremarkable. No enlarged lymph nodes. Bladder: The urinary bladder is under distended limiting its evaluation for wall thickening. Reproductive: The patient is status post hysterectomy. There is no adnexal mass. Bones/joints: There is significant L5-S1 disc degenerative changes. Soft tissues: Unremarkable. Other findings: There is significant dilatation of the CHD measuring up to 2 cm with distal tapering to 1 centimetres. IMPRESSION: 1. Nonspecific significant bilateral perinephric stranding. Correlate clinically and with urinalysis for pyelonephritis. 2. Simple and dense bilateral renal cysts. The dense lesions could be cysts filled with blood products or proteinaceous material. Further characterization with MRI with contrast is suggested. 3. Evaluation of the urinary bladder is limited due to under distension. 4. Status post cholecystectomy. 5. Significant fusiform dilatation of the CHD up to 2 cm with distal tapering to 1 cm. Findings could be secondary to physiologic post cholecystectomy phenomena and or Choledochal cyst type 1. However distal CBD stricture obstructive process cannot be completely excluded. Correlate with clinical history, physical exam, LFTs and bilirubin level. If indicated MRI with MRCP may be obtained for further evaluation. 6. Interval development of small to moderate bilateral pleural effusions with overlying severe atelectatic changes versus infiltrates. 7. Interval increase in pericardial effusion previously trace now small to moderate. Correlation with echocardiography is recommended to exclude tamponade physiology. 8. Small sliding hiatal hernia. 9. 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 COMMENTS: Consistent with the [employer]'s Incidental Findings Committee white paper (J Am Tricia Radiol 2018): Any incidental renal lesion less than 1.0 cm or classified as too small to characterize, or any incidental cystic renal lesion characterized as simple-appearing, is likely benign. No follow-up imaging is recommended for these lesions per consensus recommendations based on imaging criteria. Electronically signed by: Silas Johnson On 10/24/2019 05:30:36 AM
[2019-10-24 06:00] VITALS: BP 137/94
[2019-10-24 06:32] LABS: HEMATOCRIT 32.6 % (36.0-47.0); HEMOGLOBIN 10.3 g/dl (12.0-15.5); MEAN CORPUSCULAR HEMOGLOBIN 29.4 pg (27.0-33.0); MEAN CORPUSCULAR HGB CONC 31.6 g/dl (32.0-36.5); MEAN CORPUSCULAR VOLUME 93.1 fl (80.0-96.0); PLATELET COUNT, AUTOMATED 407 10^3/uL (150-450); WHITE BLOOD COUNT 11.6 10^3/uL (4.0-10.0)
[2019-10-24 06:47] LABS: CALCIUM LEVEL 8.2 MG/DL (8.8-10.2); CREATININE FOR GFR 3.07 MG/DL (0.55-1.30); GLOMERULAR FILTRATION RATE 16.3 (>45)
[2019-10-24] MEDS: HumaLOG INSULIN (NovoLOG) PER UNIT SC SCH ×5 (07:30→20:53)
--- NOTE | 2019-10-24 08:08 | REP ---
Portable chest x-ray: Single view. History: Chest pain. Comparison chest x-ray: October 22, 2019. Findings: Mild cardiac enlargement is observed. There is linear density in the right perihilar region consistent with plate-like atelectasis versus fissural fluid. Oxygen delivery tubing is seen. Minimal linear fibrosis is again seen in the left base. No new infiltrate is seen. Electronically Signed by Riley Ortiz MD 10/24/2019 08:00 A
[2019-10-24] MEDS: HEPARIN SOD (PORCINE) 5000UNITS/ML VIAL (J1644 PER 1000UNITS) SC SCH ×2 (08:44→20:55)
[2019-10-24] MEDS: amLODIPine 5 MG TAB PO SCH (08:45)
[2019-10-24] MEDS: ASPIRIN ENTERIC 325 MG TAB PO SCH (08:45)
[2019-10-24] MEDS: CLOPIDOGREL 75 MG TAB PO SCH (08:45)
[2019-10-24] MEDS: ATORVASTATIN 20 MG TAB PO SCH (08:45)
[2019-10-24] MEDS: BICITRA 30ML SOLN UDC PO SCH ×2 (08:45→20:57)
[2019-10-24] MEDS: PANTOPRAZOLE 40MG TAB (PROTONIX) PO SCH ×2 (08:45→20:55)
[2019-10-24] MEDS: METOPROLOL TART 25 MG TABLET PO SCH (08:45)
[2019-10-24] MEDS: FERROUS GLUCONATE 324 MG TAB PO SCH (08:45)
[2019-10-24] MEDS: ACETAMINOPHEN TAB 650MG DOSE (2X325MG) PO PRN (08:46)
--- NOTE | 2019-10-24 09:29 | REP ---
CT CHEST WITHOUT CONTRAST: HISTORY: Question of pneumonia. Pleural effusions. Comparison chest CT study October 22, 2019. CT FINDINGS: There are small bilateral pleural effusions. There is compressive atelectasis in the lower lobes bilaterally associated with effusions. The pleural effusions have increased since the prior study of October 22, 2019. Accordingly, there is more atelectasis in the bases. There is a very small quantity of pericardial fluid. Cardiomegaly is observed as before. Coronary artery vascular calcification is present. There are scattered pretracheal and mediastinal lymph nodes, none pathologically enlarged. There is plate-like atelectasis in the midlung restrepo bilaterally. There is some intrafissural fluid bilaterally as well. IMPRESSION: Increased small bilateral pleural effusions with some associated compressive atelectasis. Bilateral fissural fluid noted. No acute infiltrate seen. Electronically Signed by Riley Ortiz MD 10/24/2019 05:10 P
[2019-10-24] MEDS ORDERED: FUROSEMIDE 100MG/10ML VIAL (J1940) IV ONE (12:00)
[2019-10-24] MEDS: cefTRIAXone SOD 2 GM in D5W MINI-BAG PLUS 50 ML IV SCH (12:20)
[2019-10-24] MEDS: oxyCODONE 5MG TAB PO PRN ×2 (13:25→20:56)
[2019-10-24 14:00] VITALS: BP 132/77
--- NOTE | 2019-10-24 15:04 | IPNPDOC ---
Date Seen The patient was seen on 10/24/19. Progress Note SUBJECTIVE: 88% on 2 L NC, BNP increased to 9534. Discussed case with nephrology and given dose of lasix today due to CHF exacerbation, hypoxia. Multiple abnormal findings on CT abd, new small bilateral pleural effusions with pericardial effusion. Discussed with Dr. Sewell, ordered another limited echo to be done. Gas pain, added simethicone. Denies chest pain, n/v/d, fevers, shortness of breath. OBJECTIVE: VITAL SIGNS: Please see below PHYSICAL EXAMINATION: CONSTITUTIONAL: No acute distress, resting comfortably, AAO x 3 EYES: PERRLA, EOM intact HENT, MOUTH: Normocephalic, atraumatic, moist mucous membranes, nasal cannula in place. NECK: SUPPLE, no JVD, no lymphadenopathy, no carotid bruit CV: Regular rate and rhythm, S1S2 normal, no murmurs/rubs/gallops RESPIRATORY: Clear to auscultation bilaterally, no rales/rhonchi/wheezes GI: Decreased abdominal discomfort. Obese abd. BS positive in 4 quadrants, soft,nondistended, no rebound or guarding, no organomegaly : Deferred MUSCULOSKELETAL: Normal ROM. No cyanosis, clubbing, swelling, joint deformity, extremity edema INTEGUMENTARY: Intact, no rashes, no lesions, no erythema NEUROLOGIC: Cranial Nerves II-XII are intact, no focal deficits PSYCHIATRIC: Mood and affect are normal CURRENT MEDICATIONS: Please see below LABORATORY DATA: Please see below IMAGING: CT abd/pelvis without: 1. Nonspecific significant bilateral perinephric stranding. Correlate clinically and with urinalysis for pyelonephritis. 2. Simple and dense bilateral renal cysts. The dense lesions could be cysts filled with blood products or proteinaceous material. Further characterization with MRI with contrast is suggested. 3. Evaluation of the urinary bladder is limited due to under distension. 4. Status post cholecystectomy. 5. Significant fusiform dilatation of the CHD up to 2 cm with distal tapering to 1 cm. Findings could be secondary to physiologic post cholecystectomy phenomena and or Choledochal cyst type 1. However distal CBD stricture obstructive process cannot be completely excluded. Correlate with clinical history, physical exam, LFTs and bilirubin level. If indicated MRI with MRCP may be obtained for further evaluation. 6. Interval development of small to moderate bilateral pleural effusions with overlying severe atelectatic changes versus infiltrates. 7. Interval increase in pericardial effusion previously trace now small to moderate. Correlation with echocardiography is recommended to exclude tamponade physiology. 8. Small sliding hiatal hernia. 9. 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 chest without contrast: Increased small bilateral pleural effusions with some associated compressive atelectasis. Bilateral fissural fluid noted. No acute infiltrate seen. ASSESSMENT: 63 y/o F admitted for bilateral pyelonephritis, resolved sepsis. PLAN: 1. Bilateral pyelonephritis. WBC further improved to 11K, Afebrile, UCx showed no growth, BCx NG to date. C/w ceftriaxone (day 3), daily CBC 2. Acute renal failure likely 2/2 to polycystic kidney disease (PCKD) and medication (toradol). Cr slightly improved at 3.07. Given 60 mg IV lasix for fluid overload today but overall avoiding nephrotoxic medications. Making good urine. Bicitra BID, renal diet. Nephrology following. 3. Hypoxia 2/2 to acute distolic CHF exacerbation. Currently on 2 L NC, 90%. - 1L/24 hrs. BNP 9534, small b/l pleural effusions on CT chest. Given dose of lasix 60 mg today, caution with Cr elevated. Nephrology aware. C/w BB, CCB, low salt diet, monitor I&Os closely, daily wt. 4. Pericardial effusion. Small-mod on CT abd/pelvis but noted as small on CT chest. Asked cardiology to repeat limited echo to reassess, as pericardial effusion was not previously on echocardiogram done on 10/22/19. Discussed case with Dr. Sewell. 5. Small bilateral pleural effusions. C/w treatment under problem #3. 6. Polycystic kidney disease. Multiple renal cysts seen on CT abd/pelvis. Consider MRI with contrast. Nephrology following. 7. Metabolic acidosis. C/w bicitra. F/u daily labs. 8. HTN likely 2/2 to PCKD . BP stable. Not candidate for ACEi, ARB due to BRIGITTE. C/w BB, CCB. 9. Abdominal aortic aneurysm, infrarenal and fusiform. Incidental finding on CT abd/pelvis. F/u with regularly scheduled US outpatient by PCP. 10. Chronic epigastric pain likely 2/2 to hiatal hernia, gas. States pain is like it always his. C/w PPI BID, added simethicone today. 11. Common hepatic duct dilation, 2 cm with distal tapering to 1 cm. Possibly 2/2 to physiologic post cholecystectomy phenomena vs Choledochal cyst type 1 vs Distal CBD stricture obstructive process. CMP has been unremarkable. Pain on e xam is more epigastric, not RUQ. Can consider MRI with MRCP in event pain changes or abdominal pain worsens. 12. History of coronary artery disease. Denies chest pain, sob. Continue current dose of aspirin, Plavix, atorvastatin, metoprolol. 13. Hematuria likely traumatic. Removing orozco today and will see how urine looks. Monitor CBC. 14. Diabetes mellitus, type 2. BS controlled. C/w AC/HS blood sugar checks, consistent carb diet, ISS. 15. Iron deficiency anemia. C/w PO iron supplement. Would benefit from IV iron when further improved. 16. DVT px. Heparin. DISPOSITION: Currently admitted under inpatient status. Plan is discharge home when medically improved. VS, I&O, 24H, Fishbone Vital Signs/I&O Vital Signs Date Time Temp Pulse Resp B/P (MAP) Pulse Ox O2 Delivery O2 Flow Rate FiO2 10/24/19 14:00 19 Room Air 10/24/19 08:45 90 173/94 10/24/19 06:00 99.0 88 1.0 I&O- Last 24 Hours up to 6 AM 10/24/19 06:00 Intake Total 1020 ml Output Total 2125 ml Balance -1105 ml Laboratory Data 24H LABS Laboratory Tests 2 10/23/19 17:22: Bedside Glucose (Misc Panel) 115 10/23/19 20:55: Bedside Glucose (Misc Panel) 158H 10/24/19 05:48: Nucleated Red Blood Cells % (auto) 0.0, Anion Gap 10, Glomerular Filtration Rate 16.3L, Calcium Level 8.2L, XB-[id number]-Type Natriuretic Peptide 9534H 10/24/19 11:31: Bedside Glucose (Misc Panel) 172H CBC/BMP Laboratory Tests 10/24/19 05:48 Microbiology Microbiology 10/22/19 Urine Culture - Final, Complete 10/22/19 Respiratory Virus Panel (PCR) (JUAN) - Final, Complete 10/22/19 Blood Culture - Preliminary, Resulted No Growth after 48 hours. All Specime... 10/22/19 Blood Culture - Preliminary, Resulted No Growth after 48 hours. All Specime... Current Medications Current Medications Medications (Trade) Dose Ordered Sig/Ronit Route PRN Reason Start Time Stop Time Status Last Admin Dose Admin Acetaminophen (Tylenol Tab) 650 mg Q6HP PRN PO PAIN / FEVER 10/22/19 04:00 10/24/19 08:46 Albuterol Sulfate (Proventil, Ventolin Hfa) 2 puff TIDP PRN INH SOB/WHEEZING 10/22/19 01:00 10/24/19 02:37 Amlodipine Besylate (Norvasc) 5 mg DAILY PO 10/23/19 09:00 10/24/19 08:45 Aspirin (Ecotrin) 325 mg DAILY PO 10/22/19 09:00 10/24/19 08:45 Atorvastatin Calcium (Lipitor) 20 mg DAILY@0900 PO 10/22/19 09:00 10/24/19 08:45 Azithromycin 500 mg/IV Miscellaneous Supplies 1 each/ Dextrose 255 ml @ 255 mls/hr Q24H IV 10/22/19 12:00 10/22/19 16:34 DC 10/22/19 13:22 Ceftriaxone Sodium 2 gm/ Dextrose 50 ml @ 100 mls/hr Q24H IV 10/22/19 11:00 10/24/19 12:20 Citric Acid/ Sodium Citrate (Bicitra) 30 ml BID PO 10/23/19 10:45 10/24/19 08:45 Clopidogrel Bisulfate (PLAVix) 75 mg DAILY PO 10/22/19 09:00 10/24/19 08:45 Dextrose (Dextrose 50%) 25 ml ASDIRECTED PRN IV SEE LABEL COMMENTS 10/22/19 00:45 Ferrous Gluconate (Fergon) 324 mg DAILY PO 10/23/19 09:00 10/24/19 08:45 Glucagon (Glucagon) 1 mg ASDIRECTED PRN SC SEE LABEL COMMENTS 10/22/19 00:45 Glucose (Glucose) 16 GM ASDIRECTED PRN PO SEE LABEL COMMENTS 10/22/19 00:45 Heparin Sodium (Porcine) (Heparin) 5,000 units Q12H SC 10/22/19 09:00 10/24/19 08:44 Home Med (Med Rec Complete!) ASDIRECTED XX 10/22/19 01:00 10/22/19 01:00 DC Insulin Human Lispro (HumaLOG INSULIN) SEE PROTOCOL TABLE AC NJ 10/22/19 07:30 10/24/19 12:20 Insulin Human Lispro (HumaLOG INSULIN) SEE PROTOCOL TABLE QHS NJ 10/22/19 21:00 Metoprolol Tartrate (Lopressor) 25 mg DAILY PO 10/22/19 09:00 10/24/19 08:45 Oxycodone HCl (Roxicodone, Oxyir) 5 mg Q6HP PRN PO PAIN 10/22/19 12:45 10/24/19 13:25 Pantoprazole Sodium (Protonix) 40 mg BID PO 10/22/19 09:00 10/24/19 08:45 Simethicone (Mylicon) 80 mg TIDP PRN PO GAS PAIN 10/24/19 15:00 Sodium Bicarbonate 75 meq/Sodium Chloride 1,075 ml @ 80 mls/hr [id number] IV 10/22/19 15:00 10/23/19 07:46 DC 10/22/19 17:54 Sodium Chloride 1,000 ml @ 80 mls/hr [id number] IV 10/22/19 00:15 10/22/19 12:34 DC 10/22/19 01:53 Allergies Coded Allergies: prochlorperazine (Verified Allergy, Severe, tongue swelling, facial spasms, throat tightness, 01/02/19) sumatriptan (Verified Adverse Reaction, Intermediate, rapid HR, diaphoretic, 01/02/19) Joyce Garza MD Oct 24, 2019 15:04
[2019-10-24] MEDS: SIMETHICONE 80 MG CHEW TAB PO PRN (15:14)
--- NOTE | 2019-10-24 15:59 | IPN ---
DATE OF SERVICE: 10/24/2019 SUBJECTIVE: The patient was seen and examined at the bedside today morning. The patient is complaining of slightly worse shortness of breath. She also reports persistent central chest pain, which is burning in nature. She denies any nausea or vomiting. Mcfarland catheter was removed yesterday and she denies any more hematuria. She got a CAT scan of the chest done, which showed worsening of pleural effusions and slight worsening in the pericardial effusion. OBJECTIVE: Vital Signs: Temperature is 99 degrees Fahrenheit, blood pressure 137/94, pulse is 91, respiratory rate of 24, saturating 88% on nasal cannula at 1 liter. Intake/Output: Urine output recorded is 2 liters yesterday, 800 mL so far today since overnight. Weight in the bed scale is not available. PHYSICAL EXAMINATION: General: The patient is awake, alert, oriented times three, sitting up in the bed. Head/Neck Exam: Extraocular muscles intact. Pupils equally round and reactive to light. Mucous membranes are moist. Neck is supple. She has mildly elevated jugular venous distention (JVD). Cardiovascular: S1, S2, regular rate. Trace edema of the bilateral lower extremities. Respiratory: Decreased breath sounds at the bases with mild respiratory crackles at the bases for deep inspiration. Abdomen: Soft. Obese. Positive bowel sounds. Nontender. No organomegaly. Musculoskeletal: No clubbing or cyanosis. Pulses are 2+. Central Nervous System ([employer]): No focal deficit. Power is 5/5 in all extremities. LAB REVIEW: Complete blood count (CBC) showed WBC 11.6, which is better than yesterday. Hemoglobin is 10.3. Platelets are 407. Basic metabolic panel (BMP) done today showed sodium 137, potassium 5, chloride 105, bicarbonate 22, BUN 68, creatinine 3; it was 3.7 yesterday. ProBNP is 9534. MICROBIOLOGY: Urine culture is negative. Blood cultures are all negative. IMAGING: CAT scan of the chest was done today, which showed increased small bilateral pleural effusions with some compressive atelectasis, bilateral fissural fluid was noted. There was no acute infiltrate. A CAT scan of the abdomen and pelvis was done today, which showed significant bilateral perinephric stranding, simple and dense bilateral renal cysts, status post cholecystectomy. There was significant fusiform dilation of the CBD up to 2 cm with distal tapering. There was interval increase in pericardial effusion, previously trace and now small to moderate. There was a fusiform infrarenal abdominal aortic aneurysm measuring 4.1 cm. CURRENT MEDICATIONS: The patient's medications were all reviewed by myself. She continues to be on IV ceftriaxone. I have ordered a dose of Lasix 60 mg IV to be given today. She was also given a dose of morphine today morning. No other change in the medications today as compared with yesterday. ASSESSMENT/PLAN: 1. Acute renal failure. The patient has nonoliguric renal failure. She has polycystic kidney and she was given IV nonsteroidal anti-inflammatory drugs (NSAIDs). Renal function is slowly improving. However, because of worsening pleural effusions and pericardial effusion, I have ordered a dose of IV Lasix. Continue to monitor intake and output. 2. Metabolic acidosis. It has improved with the oral Bicitra. 3. Bilateral pleural effusions. The patient takes Lasix 40 mg orally at home. I have ordered Lasix 60 mg IV to be given today. 4. Hypertension. Blood pressure is better controlled with metoprolol and amlodipine. IV Lasix would also help improve volume status and improve blood pressure. 5. Worsening pericardial effusions. The patient is going to have an echocardiogram done. IV diuretic is started as mentioned above. 6. History of coronary artery disease. Continue current dose of aspirin, Plavix, statin, and metoprolol. 7. Hematuria. It has resolved after removal of Mcfarland catheter. 8. Leukocytosis and elevated C-reactive protein. Most likely the patient has infection of one of her renal cysts. Urine culture is negative. She is empirically getting IV ceftriaxone. White blood cell (WBC) count is improving. 9. Iron-deficiency anemia. The patient still has mild leukocytosis, which is improving. IV iron will be given once the infection counts get better.
[2019-10-24 20:20] VITALS: BP 167/85
[2019-10-24 20:50] VITALS: BP 170/82
[2019-10-25] MEDS: SIMETHICONE 80 MG CHEW TAB PO PRN ×4 (00:26→23:39)
[2019-10-25 06:00] VITALS: BP 180/94
[2019-10-25] MEDS: IPRATROPIUM 0.5MG/ALBUTEROL 2.5MG INH SOL UD 3ML (DUONEB) NEB PRN (06:04)
[2019-10-25] MEDS: METOPROLOL TART 25 MG TABLET PO SCH (06:06)
[2019-10-25] MEDS: amLODIPine 5 MG TAB PO SCH (06:07)
[2019-10-25] MEDS: oxyCODONE 5MG TAB PO PRN ×3 (06:07→20:21)
[2019-10-25 06:39] LABS: HEMATOCRIT 33.1 % (36.0-47.0); HEMOGLOBIN 10.6 g/dl (12.0-15.5); MEAN CORPUSCULAR HEMOGLOBIN 30.1 pg (27.0-33.0); PLATELET COUNT, AUTOMATED 440 10^3/uL (150-450); RED BLOOD COUNT 3.52 10^6/uL (4.00-5.40); WHITE BLOOD COUNT 11.7 10^3/uL (4.0-10.0)
[2019-10-25 07:10] LABS: ALBUMIN 2.2 GM/DL (3.2-5.2); BILIRUBIN,TOTAL 0.3 MG/DL (0.2-1.0); CALCIUM LEVEL 8.7 MG/DL (8.8-10.2); CREATININE FOR GFR 2.87 MG/DL (0.55-1.30); GLOMERULAR FILTRATION RATE 17.7 (>45); POTASSIUM SERUM 4.7 MEQ/L (3.5-5.1); TOTAL PROTEIN 6.6 GM/DL (6.4-8.2)
[2019-10-25] MEDS: PANTOPRAZOLE 40MG TAB (PROTONIX) PO SCH ×2 (08:59→20:20)
[2019-10-25] MEDS: BICITRA 30ML SOLN UDC PO SCH (08:59)
[2019-10-25] MEDS: ASPIRIN ENTERIC 325 MG TAB PO SCH (08:59)
[2019-10-25] MEDS: ATORVASTATIN 20 MG TAB PO SCH (08:59)
[2019-10-25] MEDS: FERROUS GLUCONATE 324 MG TAB PO SCH ×2 (08:59→20:20)
[2019-10-25] MEDS: CLOPIDOGREL 75 MG TAB PO SCH (08:59)
[2019-10-25] MEDS: ACETAMINOPHEN TAB 650MG DOSE (2X325MG) PO PRN (09:00)
[2019-10-25] MEDS: HEPARIN SOD (PORCINE) 5000UNITS/ML VIAL (J1644 PER 1000UNITS) SC SCH ×2 (09:00→20:19)
[2019-10-25] MEDS: HumaLOG INSULIN (NovoLOG) PER UNIT SC SCH ×4 (09:00→21:00)
[2019-10-25] MEDS ORDERED: FUROSEMIDE 100MG/10ML VIAL (J1940) IV ONE (09:15)
[2019-10-25] MEDS ORDERED: amLODIPine 5 MG TAB PO ONE (09:15)
[2019-10-25] MEDS: cefTRIAXone SOD 2 GM in D5W MINI-BAG PLUS 50 ML IV SCH (10:31)
--- NOTE | 2019-10-25 10:47 | ECGEPIP ---
[facility] Test Date: 2019-10-24 Pat Name: FLEX LUGO Department: Room: [place] [address] Gender: Female Keno Writer / Runner: : 1955 Requested By: JOSE ELIAS Melgar Order Number: [id number] Reading MD: Morgan Amaral Measurements Intervals [place] Rate: 76 P: -6 NE: 147 QRS: 18 QRSD: 93 T: 62 QT: 382 QTc: 432 Interpretive Statements Normal sinus rhythm Left ventricular hypertrophy with repolarization abnormality Comparison tracing not on file Electronically Signed on 10-25-2019 10:46:42 EDT by Morgan Amaral
[2019-10-25] MEDS ORDERED: MORPHINE 2 MG/ML 1ML VIAL (J2270) IV ONE (12:30)
[2019-10-25 12:50] VITALS: BP 170/74
[2019-10-25] MEDS ORDERED: IRON SUCROSE 200 MG in NS 100 ML IV SCH (13:00)
[2019-10-25 13:30] VITALS: BP 178/72
[2019-10-25 14:00] VITALS: BP 165/90
[2019-10-25 15:36] LABS: CLOSTRIDIUM DIFFICILE PCR NEGATIVE (NEGATIVE)
--- NOTE | 2019-10-25 15:45 | IPN ---
DATE: 10/25/2019 SUBJECTIVE: The patient was seen and examined at the bedside today morning. She was given a dose of Lasix 60 mg intravenous (IV) yesterday. She made a good amount of urine, and her shortness of breath is also getting better. Her renal function continues to improve. Creatinine has improved to 2.8 today. Leukocytosis is mildly persistent. Her chest pain is better today as compared with yesterday. OBJECTIVE: Vital signs: Temperature is 98.9 degrees Fahrenheit, blood pressure 170/68, pulse is 82, respiratory rate of 23, saturating 91% on nasal cannula at 1 liter. Intake and output: Urine output recorded is 3.7 liters yesterday, 1.2 liters so far today since overnight. Weight in the bed scale is not available. PHYSICAL EXAMINATION: GENERAL: The patient is awake, alert, oriented times three, sitting up in the bed, wearing nasal cannula. HEAD AND NECK: Extraocular muscles intact. Pupils equally round and reactive to light. Mucous membranes are moist. Neck is supple. There is mildly elevated jugular venous distention (JVD). CARDIOVASCULAR: S1, S2, regular rate. No edema of the bilateral lower extremities. RESPIRATORY: Decreased breath sounds at the bases with inspiratory crackles bilaterally at the bases. ABDOMEN: Soft, obese, positive bowel sounds. Nontender. No organomegaly. GENITOURINARY: Bladder is not palpable. MUSCULOSKELETAL: No clubbing or cyanosis. Pulses are 2+. CENTRAL NERVOUS SYSTEM: No focal deficit. Power is 5/5 in all extremities. LABORATORY REVIEW: CBC showed WBC 11.7, hemoglobin 10.6, platelets are 440. BMP done today showed sodium 136, potassium 4.7, chloride 102, bicarbonate 27, BUN 59, creatinine is 2.8, calcium is 8.7. AST 99, ALT is 106, alkaline phosphatase is 221. CURRENT INPATIENT MEDICATIONS: The patient's medications were all reviewed by myself. She continues to be on IV ceftriaxone. I have started the patient on IV Venofer because of iron deficiency anemia. I am going to stop the Tylenol because of elevated liver enzymes. Amlodipine dose has been increased to 10 mg by mouth daily. I am stopping the Bicitra because acidosis has improved. Iron tablet has been changed to 324 mg by mouth twice a day. She was given another dose of Lasix 60 mg IV today morning. ASSESSMENT AND PLAN: 1. Acute renal failure. The patient has nonoliguric renal failure. Renal function is gradually improving. Creatinine is down. Okay to continue the diuretics because of volume overload. 2. Metabolic acidosis. It has improved with oral Bicitra. Bicitra is going to be stopped today. 3. Hypertension. Blood pressure is still elevated. Amlodipine dose was increased to 10 mg daily. Continue current dose of metoprolol. She is not a candidate for angiotensin-converting enzyme (VANDANA) or angiotensin receptor ke (ARB) at this time, since she is recovering from acute renal failure. 4. Bilateral pleural effusions. She was given one dose of Lasix 60 mg IV yesterday. Another dose has been given today. She will be monitored on a daily basis for need to diurese, given she is recovering from a renal failure as well. 5. Leukocytosis. It is getting better. Cultures are negative. Continue current dose of ceftriaxone. 6. Iron deficiency anemia. The patient has been started on IV Venofer. Oral iron dose has also been increased. 7. Elevated liver enzymes. The patient's imaging done earlier showed she is status post cholecystectomy; however, there is some stenosis in the common bile duct (CBD). I have stopped the Tylenol dose. If liver function tests (LFTs) remain high, then statin dose will also been stopped. Continue to monitor for now.
[2019-10-25] MEDS: LACTOBACILLUS ACIDOPHILUS CAP (BACID) PO SCH (17:33)
--- NOTE | 2019-10-25 18:50 | ECHO ---
DATE OF PROCEDURE: 10/24/2019 DATE OF : 1955 AGE: 63 REFERRING PROVIDER: Dr. Joyce Garza REASON FOR THE STUDY: Pericardial effusion. 2D COMMENTS: 1. Please refer to full study on 10/22/2019 for details. The study was done just to assess for pericardial fluids. 2. Left ventricular size appeared to be normal. Left atrium appeared to be mildly enlarged, subjectively. 3. The right atrium and the right ventricle appeared to be normal in size in limited views. 4. There was mitral annulus calcification. 5. Only trace pericardial effusion noted, no evidence of cardiac tamponade. A right pleural effusion also was noted. 6. The study was technically limited due to poor acoustic window. IMPRESSION: As noted above. MTDD
--- NOTE | 2019-10-25 20:42 | IPNPDOC ---
Date Seen The patient was seen on 10/25/19. Progress Note SUBJECTIVE: 93-96% on 1 L NC, improving with diuresis. Cr improved despite diuresis. Complains of chronic epigastric pain at times, given extra pain medication during the day. On evaulation; however, she does not have pain on exam. Denies chest pain, n/v/d, fevers, increased shortness of breath. OBJECTIVE: VITAL SIGNS: Please see below PHYSICAL EXAMINATION: CONSTITUTIONAL: No acute distress, sitting comfortably up in bed, AAO x 3 EYES: PERRLA, EOM intact HENT, MOUTH: Normocephalic, atraumatic, moist mucous membranes, nasal cannula in place. NECK: SUPPLE, no JVD, no lymphadenopathy, no carotid bruit CV: Regular rate and rhythm, S1S2 normal, no murmurs/rubs/gallops RESPIRATORY: Clear to auscultation bilaterally, no rales/rhonchi/wheezes GI: No abdominal discomfort on exam. Obese abd. BS positive in 4 quadrants, soft, nondistended, no rebound or guarding, no organomegaly : Deferred MUSCULOSKELETAL: Normal ROM. No cyanosis, clubbing, swelling, joint deformity, extremity edema INTEGUMENTARY: Intact, no rashes, no lesions, no erythema NEUROLOGIC: Cranial Nerves II-XII are intact, no focal deficits PSYCHIATRIC: Mood and affect are normal CURRENT MEDICATIONS: Please see below LABORATORY DATA: Please see below IMAGING: No new imaging. ASSESSMENT: 63 y/o F admitted for acute renal failure, uncontrolled HTN, acute hypoxic respiratory failure. PLAN: 1. Uncontrolled HTN likely 2/2 to PCKD. Systolic as high as 200 mmHg. Not candidate for ACEi, ARB due to BRIGITTE. C/w BB, CCB, hydralazine PRN. 2. Acute renal failure likely 2/2 to polycystic kidney disease (PCKD) and medication (toradol). Cr continues to improve, today 2.87 despite daily diuresis. Given 60 mg IV lasix for fluid overload today also but overall avoiding nephrotoxic medications. Bicitra BID, renal diet. Nephrology following. 3. Acute hypoxic respiratory failure 2/2 to acute diastolic CHF exacerbation, bilateral pleural effusions. Currently on 1-2 L NC, 93-96%. - 3+L/24 hrs. Given dose of lasix 60 mg today, caution with Cr elevated. Nephrology aware. C/w BB, CCB, low salt diet, monitor I&Os closely, daily wt. 4. Leukocytosis. Originally believed to be 2/2 to bilateral pyelonephritis was initial dx ;however, UCx showed NG. WBC minimally elevated at 11.8. UCx NG,BCx NG to date. F/u CBC. Will keep Ceftriaxone IV (Day 5) daily for now. 5. Trace pericardial effusion. Seen on limited echo done 10/24/19. C/w intermittent diuresis and patient will need f/u echo as o/p. 6. Elevated liver enzymes. Stopped tylenol, statin so if this improves then maybe medication induced? If does not or worsens, consider CHD dilation as possible cause. F/u CMP in AM 7. Small bilateral pleural effusions. C/w treatment under problem #3. 8. Polycystic kidney disease. Multiple renal cysts seen on CT abd/pelvis. Consider MRI with contrast. Nephrology following. 9. Metabolic acidosis. Improved. Stopping bicitra. F/u daily labs. 10. Abdominal aortic aneurysm, infrarenal and fusiform. Incidental finding on CT abd/pelvis. F/u with regularly scheduled US outpatient by PCP. 11. Chronic epigastric pain likely 2/2 to hiatal hernia, gas. States pain is like it always his. C/w PPI BID, added simethicone today. 12. Common hepatic duct dilation, 2 cm with distal tapering to 1 cm. Possibly 2/2 to physiologic post cholecystectomy phenomena vs Choledochal cyst type 1 vs Distal CBD stricture obstructive process. CMP shows slightly elevated ALT, alk phos. Pain on exam is more epigastric, not RUQ. Can consider MRI with MRCP in event pain changes or abdominal pain worsens. 13. History of coronary artery disease. Denies chest pain, sob. Continue current dose of aspirin, Plavix, atorvastatin, metoprolol. 14. Diabetes mellitus, type 2. BS controlled. C/w AC/HS blood sugar checks, consistent carb diet, ISS. 15. Iron deficiency anemia. C/w PO iron supplement. S/p IV venofer. 16. DVT px. Heparin. DISPOSITION: Currently admitted under inpatient status. Plan is discharge home when medically improved. VS, I&O, 24H, Fishbone Vital Signs/I&O Vital Signs Date Time Temp Pulse Resp B/P (MAP) Pulse Ox O2 Delivery O2 Flow Rate FiO2 10/25/19 20:21 18 Nasal Cannula 1.0 10/25/19 14:00 98.3 85 165/90 (115) 93 I&O- Last 24 Hours up to 6 AM 10/25/19 06:00 Intake Total 900 ml Output Total 4000 ml Balance -3100 ml Laboratory Data 24H LABS Laboratory Tests 2 10/24/19 20:52: Bedside Glucose (Misc Panel) 171H 10/25/19 06:11: Nucleated Red Blood Cells % (auto) 0.0, Anion Gap 7L, Glomerular Filtration Rate 17.7L, Calcium Level 8.7L, Total Bilirubin 0.3, Aspartate Amino Transf (AST/SGOT) 99H, Alanine Aminotransferase (ALT/SGPT) 106H, Alkaline Phosphatase 221H, Total Protein 6.6, Albumin 2.2L, Albumin/Globulin Ratio 0.5L 10/25/19 12:37: Bedside Glucose (Misc Panel) 160H 10/25/19 14:18: Clostridium difficile [id number] PRESUMPTIVE NEGATIVE, Clostridium difficile Toxin (PCR) NEGATIVE 10/25/19 16:38: Bedside Glucose (Misc Panel) 159H CBC/BMP Laboratory Tests 10/25/19 06:11 Microbiology Microbiology 10/22/19 Urine Culture - Final, Complete 10/22/19 Respiratory Virus Panel (PCR) (JUAN) - Final, Complete 10/22/19 Blood Culture - Preliminary, Resulted No Growth after 72 hours. All specime... 10/22/19 Blood Culture - Preliminary, Resulted No Growth after 72 hours. All specime... Current Medications Current Medications Medications (Trade) Dose Ordered Sig/Ronit Route PRN Reason Start Time Stop Time Status Last Admin Dose Admin Acetaminophen (Tylenol Tab) 650 mg Q6HP PRN PO PAIN / FEVER 10/22/19 04:00 10/25/19 11:23 DC 10/25/19 09:00 Albuterol Sulfate (Proventil, Ventolin Hfa) 2 puff TIDP PRN INH SOB/WHEEZING 10/22/19 01:00 10/24/19 21:07 Albuterol/ Ipratropium (Duoneb (Ipr 0.5mg/Alb 2.5mg)) 3 ml Q4HP PRN NEB SOB/WHEEZING 10/24/19 21:30 10/25/19 06:04 Amlodipine Besylate (Norvasc) 5 mg DAILY PO 10/23/19 09:00 10/25/19 09:07 DC 10/25/19 06:07 Amlodipine Besylate (Norvasc) 10 mg DAILY PO 10/26/19 09:00 Aspirin (Ecotrin) 325 mg DAILY PO 10/22/19 09:00 10/25/19 08:59 Atorvastatin Calcium (Lipitor) 20 mg DAILY@0900 PO 10/22/19 09:00 10/25/19 08:59 Azithromycin 500 mg/IV Miscellaneous Supplies 1 each/ Dextrose 255 ml @ 255 mls/hr Q24H IV 10/22/19 12:00 10/22/19 16:34 DC 10/22/19 13:22 Ceftriaxone Sodium 2 gm/ Dextrose 50 ml @ 100 mls/hr Q24H IV 10/22/19 11:00 10/25/19 10:31 Citric Acid/ Sodium Citrate (Bicitra) 30 ml BID PO 10/23/19 10:45 10/25/19 10:36 DC 10/25/19 08:59 Clopidogrel Bisulfate (PLAVix) 75 mg DAILY PO 10/22/19 09:00 10/25/19 08:59 Dextrose (Dextrose 50%) 25 ml ASDIRECTED PRN IV SEE LABEL COMMENTS 10/22/19 00:45 Ferrous Gluconate (Fergon) 324 mg BID PO 10/25/19 21:00 10/25/19 20:20 Ferrous Gluconate (Fergon) 324 mg DAILY PO 10/23/19 09:00 10/25/19 09:07 DC 10/25/19 08:59 Glucagon (Glucagon) 1 mg ASDIRECTED PRN SC SEE LABEL COMMENTS 10/22/19 00:45 Glucose (Glucose) 16 GM ASDIRECTED PRN PO SEE LABEL COMMENTS 10/22/19 00:45 Heparin Sodium (Porcine) (Heparin) 5,000 units Q12H SC 10/22/19 09:00 10/25/19 20:19 Home Med (Med Rec Complete!) ASDIRECTED XX 10/22/19 01:00 10/22/19 01:00 DC Insulin Human Lispro (HumaLOG INSULIN) SEE PROTOCOL TABLE AC SC 10/22/19 07:30 10/25/19 17:33 Insulin Human Lispro (HumaLOG INSULIN) SEE PROTOCOL TABLE QHS SC 10/22/19 21:00 Iron 200 mg/ Sodium Chloride 110 ml @ 110 mls/hr DAILY@1300 IV 10/25/19 13:00 10/27/19 13:59 10/25/19 13:25 Lactobacillus Acidophilus (Bacid) 1 ea BIDWM PO 10/25/19 18:00 10/25/19 17:33 Metoprolol Tartrate (Lopressor) 25 mg DAILY PO 10/22/19 09:00 10/25/19 06:06 Oxycodone HCl (Roxicodone, Oxyir) 5 mg Q6HP PRN PO PAIN 10/22/19 12:45 10/25/19 20:21 Pantoprazole Sodium (Protonix) 40 mg BID PO 10/22/19 09:00 10/25/19 20:20 Simethicone (Mylicon) 80 mg TIDP PRN PO GAS PAIN 10/24/19 15:00 10/25/19 17:33 Sodium Bicarbonate 75 meq/Sodium Chloride 1,075 ml @ 80 mls/hr [id number] IV 10/22/19 15:00 10/23/19 07:46 DC 10/22/19 17:54 Sodium Chloride 1,000 ml @ 80 mls/hr [id number] IV 10/22/19 00:15 10/22/19 12:34 DC 10/22/19 01:53 Allergies Coded Allergies: prochlorperazine (Verified Allergy, Severe, tongue swelling, facial spasms, throat tightness, 01/02/19) sumatriptan (Verified Adverse Reaction, Intermediate, rapid HR, diaphoretic, 01/02/19) Joyce Garza MD Oct 25, 2019 20:42
[2019-10-25 22:00] VITALS: BP 200/95
[2019-10-25 23:20] VITALS: BP 158/94
[2019-10-25] MEDS ORDERED: hydrALAZINE 20MG/ML 1ML VIAL (J0360 PER 20MG) IV PRN (23:30)
[2019-10-25] MEDS ORDERED: **hydrALAZINE** 10 MG TAB PO PRN (23:45)
[2019-10-26 02:00] VITALS: BP_SYST 180; BP_SYST 188; BP_DIAS 92
[2019-10-26] MEDS: oxyCODONE 5MG TAB PO PRN ×4 (02:30→21:52)
[2019-10-26 06:00] VITALS: BP 178/88
[2019-10-26 06:10] LABS: HEMATOCRIT 32.2 % (36.0-47.0); HEMOGLOBIN 10.4 g/dl (12.0-15.5); MEAN CORPUSCULAR HEMOGLOBIN 29.7 pg (27.0-33.0); MEAN CORPUSCULAR HGB CONC 32.3 g/dl (32.0-36.5); PLATELET COUNT, AUTOMATED 430 10^3/uL (150-450)
[2019-10-26 06:42] LABS: BILIRUBIN,TOTAL 0.2 MG/DL (0.2-1.0); CALCIUM LEVEL 8.6 MG/DL (8.8-10.2); CREATININE FOR GFR 2.46 MG/DL (0.55-1.30); GLOMERULAR FILTRATION RATE 21.1 (>45); POTASSIUM SERUM 4.7 MEQ/L (3.5-5.1); TOTAL PROTEIN 6.3 GM/DL (6.4-8.2)
[2019-10-26 06:50] VITALS: BP 160/82
[2019-10-26] MEDS: HumaLOG INSULIN (NovoLOG) PER UNIT SC SCH ×4 (08:32→20:34)
[2019-10-26] MEDS: CLOPIDOGREL 75 MG TAB PO SCH (08:33)
[2019-10-26] MEDS: FERROUS GLUCONATE 324 MG TAB PO SCH ×2 (08:33→20:34)
[2019-10-26] MEDS: LACTOBACILLUS ACIDOPHILUS CAP (BACID) PO SCH ×2 (08:33→17:46)
[2019-10-26] MEDS: ASPIRIN ENTERIC 325 MG TAB PO SCH (08:33)
[2019-10-26] MEDS: PANTOPRAZOLE 40MG TAB (PROTONIX) PO SCH ×2 (08:33→20:34)
[2019-10-26] MEDS: METOPROLOL TART 25 MG TABLET PO SCH (08:35)
[2019-10-26] MEDS: amLODIPine 10 MG TAB PO SCH (08:35)
[2019-10-26] MEDS: HEPARIN SOD (PORCINE) 5000UNITS/ML VIAL (J1644 PER 1000UNITS) SC SCH ×2 (08:36→20:35)
[2019-10-26 09:16] LABS: AMORPHOUS SEDIMENT SMALL (NEGATIVE); APPEARANCE, URINE CLOUDY (CLEAR); BACTERIA, URINE AUTO 1+ (NEGATIVE); BILIRUBIN, URINE AUTO NEGATIVE (NEGATIVE); BLOOD, URINE BLOOD 3+ (NEGATIVE); COLOR, URINE YELLOW (YELLOW); GLUCOSE, URINE (UA) AUTO NEGATIVE (NEGATIVE); KETONE, URINE AUTO NEGATIVE (NEGATIVE); LEUKOCYTE ESTERASE, URINE AUTO TRACE (NEGATIVE); NITRITE, URINE AUTO NEGATIVE (NEGATIVE); PROTEIN, URINE AUTO 2+ mg/dL (NEGATIVE); RBC, URINE AUTO 96 /HPF (0-3); SPECIFIC GRAVITY URINE AUTO 1.015 (1.002-1.035); SQUAMOUS EPITHELIAL CELL UR AU 4 /HPF (0-6); UROBILINOGEN, URINE AUTO 0.2 mg/dL (0.0-2.0); WBC, URINE AUTO 21 /HPF (0-3)
[2019-10-26] MEDS: cefTRIAXone SOD 2 GM in D5W MINI-BAG PLUS 50 ML IV SCH (11:09)
[2019-10-26] MEDS: TORSEMIDE 20 MG TAB PO SCH (11:56)
[2019-10-26] MEDS: PIPERACILLIN/TAZOBACTAM SOD 2.25 GM in D5W MINI-BAG PLUS 50 ML IV SCH ×2 (12:20→20:34)
[2019-10-26 13:08] LABS: BODY FLUID CULTURE Not indicated. (.); LEGIONELLA ANTIGEN URINE Negative (Negative); ORGANISM ID Not indicated. (.); SPECIMEN SOURCE Urine (.); URINE STREP PNEUMONIAE ANTIGEN Negative (Negative)
[2019-10-26 14:00] VITALS: BP 147/78
--- NOTE | 2019-10-26 14:42 | IPN ---
DATE OF SERVICE: 10/26/2019 SUBJECTIVE: The patient was seen and examined at the bedside today morning. She reports that shortness of breath is better today as compared with yesterday. She was given a dose of Lasix 60 mg IV. Renal function continues to improve. Creatinine is down to 2.4. She still reports some cough with phlegm, which is yellowish in color. White cell count is still high and is slightly worse today as compared with yesterday. She reports abdominal pain is getting better. She is supposed to get an MRI of the abdomen done today as well. The patient also had low grade temperature last night with a maximum temperature (Tmax) 100 degrees Fahrenheit. OBJECTIVE: Vital Signs: Temperature is 99.3 degrees Fahrenheit, blood pressure 160/82, pulse is 98, respiratory rate of 24, saturating 95% on nasal cannula at 1 liter. Tmax was 100 degrees Fahrenheit last night. Intake/Output: Urine output recorded is 2.6 liters yesterday, 1.1 liters so far today since overnight. Weight in the bed scale is 96.8 kg. PHYSICAL EXAMINATION: General: The patient is awake, alert, oriented times three. She is morbidly obese, sitting up in the bed wearing nasal cannula. Head/Neck Exam: Extraocular muscles intact. Pupils equally round and reactive to light. Mucous membranes are moist. Neck is supple. There is no jugular venous distention (JVD). Cardiovascular: S1, S2, regular rate. No edema of the bilateral lower extremities. Respiratory: Mildly decreased breath sounds at the bases, otherwise no active rales or rhonchi. Abdomen: Soft, obese, positive bowel sounds. Mildly tender to deep palpation in the epigastric region. Genitourinary: Bladder is not palpable. Musculoskeletal: No clubbing or cyanosis. Pulses are 2+. Central Nervous System (MANAGER [employer]SEMBLY): No focal deficit. Power is 5/5 in all extremities. LAB REVIEW: Complete blood count (CBC) showed WBC of 15, it was 11.7 yesterday, it went up to 15 today. hemoglobin is 10.4. Platelets are 430. A repeat urinalysis done today showed it was cloudy with 3+ blood, trace leukocyte esterase, WBCs 21 and a small amount of yeast. Basic metabolic panel (BMP) done today morning showed sodium 137, potassium 4.7, chloride 101, bicarbonate 26, BUN 48, creatinine is 2.46, it was 2.87 yesterday, AST 65, ALT is 114, alkaline phosphatase is 238. Microbiology: All the cultures are negative so far. CURRENT INPATIENT MEDICATIONS: The patient's medications were all reviewed by myself. Lipitor, aspirin stopped because of elevated liver function tests (LFTs). I have stopped the Venofer because of worsening leukocytosis. IV ceftriaxone has been stopped and she has been started on IV Zosyn 2.25 grams every 8 hours. Hydralazine has been changed to 20 mg by mouth every 8 hours and I have started her on torsemide 20 mg by mouth daily. ASSESSMENT/PLAN: 1. Acute nonoliguric renal failure. The patient's renal function continues to improve. She is tolerating the diuretics as well. Creatinine is down to 2.4 today. Avoid further use of nonsteroidal anti-inflammatory drugs (NSAIDs) at this time. 2. Persistent leukocytosis. The patient complains of cough with yellowish phlegm, and she also has abdominal pain. She is going to have the MRI of the abdomen done today. IV ceftriaxone has been stopped and she has been switched to Zosyn. 3. Hypertension. Blood pressure is optimized. Continue current dose of metoprolol and hydralazine along with amlodipine. 4. Elevated liver enzymes. Lipitor has been stopped. MRI of the abdomen is pending. 5. Iron deficiency anemia . The patient was getting IV Venofer. He is already on oral iron as well. Venofer as been stopped because of worsening leukocytosis. MTDD
[2019-10-26] MEDS: SIMETHICONE 80 MG CHEW TAB PO PRN (17:46)
--- NOTE | 2019-10-26 20:46 | IPNPDOC ---
Date Seen The patient was seen on 10/26/19. Progress Note SUBJECTIVE: 90% with 1 L NC, complaining of cough,sputum. CT chest done on 10/23 was done to r/o PNA, no infectious process seen then. Can consider doing CXR if WBC worse over next 24 hrs. Discussed case with GI due to worsening leukocytosis and transaminitis still present, abdominal pain intermittently worse. Recommended MRCP, to be done today. Cr improved despite diuresis. BP better controlled. Denies chest pain, n/v/d, fevers, increased shortness of breath. OBJECTIVE: VITAL SIGNS: Please see below PHYSICAL EXAMINATION: CONSTITUTIONAL: No acute distress, sitting comfortably up in bed, AAO x 3 EYES: PERRLA, EOM intact HENT, MOUTH: Normocephalic, atraumatic, moist mucous membranes, nasal cannula in place. NECK: SUPPLE, no JVD, no lymphadenopathy, no carotid bruit CV: Regular rate and rhythm, S1S2 normal, no murmurs/rubs/gallops RESPIRATORY: Crackles in bilateral lower lung restrepo-mild, no rales/rhonchi/wheezes GI: No abdominal discomfort on exam. Obese abd. BS positive in 4 quadrants, soft, nondistended, no rebound or guarding, no organomegaly : Deferred MUSCULOSKELETAL: Normal ROM. No cyanosis, clubbing, swelling, joint deformity, extremity edema INTEGUMENTARY: Intact, no rashes, no lesions, no erythema NEUROLOGIC: Cranial Nerves II-XII are intact, no focal deficits PSYCHIATRIC: Mood and affect are normal CURRENT MEDICATIONS: Please see below LABORATORY DATA: Please see below IMAGING: No new imaging. ASSESSMENT: 63 y/o F admitted for acute renal failure, uncontrolled HTN, acute hypoxic respiratory failure. PLAN: 1. Leukocytosis. Originally believed to be 2/2 to bilateral pyelonephritis was initial dx ;however, UCx showed NG. Borderline fever, WBC increased to 15KCT chest done on 10/23 was done to r/o PNA and none was seen at that time- now has cough, sputum. Repeat urine showed UA with UCx pending. Switched abx to zosyn to cover while searching for a source of infection. F/u daily CBC, MRCP, consider CXR. 2. Acute renal failure likely 2/2 to polycystic kidney disease (PCKD) and medication (toradol). Cr continues to improve, today 2.46. Renal diet, avoid nephrotoxic medications (i.e. NSAIDs). Monitor closely since on torsemide daily now. Nephrology following. 3. Acute hypoxic respiratory failure 2/2 to acute diastolic CHF exacerbation, bilateral pleural effusions. Currently on 1 L NC, 90%. - balance/24 hrs. C/w BB, CCB, low salt diet, monitor I&Os closely, daily wt. Started on torsemide daily. F/u BNP in AM. 4. HTN likely 2/2 to PCKD. Improved. C/w torsemide, BB, CCB, hydralazine PRN. 5. Common hepatic duct dilation, 2 cm with distal tapering to 1 cm. Possibly 2/2 to physiologic post cholecystectomy phenomena vs Choledochal cyst type 1 vs Distal CBD stricture obstructive process. Possible cause of worsening leukocy tosis? CMP shows slightly elevated ALT, alk phos persists. Pain on exam is more epigastric, not RUQ. MRCP ordered. Gastroenterology consulted, case discussed with Dr. Trevizo. 6. Elevated liver enzymes. Stopped tylenol, statin. Consider CHD dilation as possible cause. F/u MRCP, daily CMP. 7. Small bilateral pleural effusions. C/w treatment under problem #3. 8. Polycystic kidney disease. Multiple renal cysts seen on CT abd/pelvis. Consider MRI with contrast. Nephrology following. 9. Abdominal aortic aneurysm, infrarenal and fusiform. Incidental finding on CT abd/pelvis. F/u with regularly scheduled US outpatient by PCP. 10. Chronic epigastric pain likely 2/2 to hiatal hernia, gas. States pain is like it always his. C/w PPI BID, simethicone 11. Trace pericardial effusion. Seen on limited echo done 10/24/19. C/w torsemide and will need f/u echo as o/p. 12. History of coronary artery disease. Denies chest pain, sob. Continue current dose of aspirin, Plavix, atorvastatin, metoprolol. 13. Diabetes mellitus, type 2. BS controlled. C/w AC/HS blood sugar checks, consistent carb diet, ISS. 14. Iron deficiency anemia. C/w PO iron supplement. S/p IV venofer. 15. DVT px. Heparin. DISPOSITION: Currently admitted under inpatient status. Plan is discharge home when medically improved. VS, I&O, 24H, [facility] Vital Signs/I&O Vital Signs Date Time Temp Pulse Resp B/P (MAP) Pulse Ox O2 Delivery O2 Flow Rate FiO2 10/26/19 16:22 18 10/26/19 14:00 97.7 84 147/78 (101) 90 Room Air 10/26/19 09:00 1.0 I&O- Last 24 Hours up to 6 AM 10/26/19 06:00 Intake Total 2740 ml Output Total 2600 ml Balance 140 ml Laboratory Data 24H LABS Laboratory Tests 2 10/25/19 21:06: Bedside Glucose (Misc Panel) 220H 10/26/19 05:53: Nucleated Red Blood Cells % (auto) 0.0, Anion Gap 10, Glomerular Filtration Rate 21.1L, Calcium Level 8.6L, Total Bilirubin 0.2, Aspartate Amino Transf (AST/SGOT) 65H, Alanine Aminotransferase (ALT/SGPT) 114H, Alkaline Phosphatase 238H, Total Protein 6.3L, Albumin 2.0L, Albumin/Globulin Ratio 0.5L 10/26/19 08:55: Urine Color YELLOW, Urine Appearance CLOUDYH, Urine pH 5.0, Urine Specific Dewitt 1.015, Urine Protein 2+H, Urine Glucose (Auto)(UA) NEGATIVE, Urine Ketones (Auto) NEGATIVE, Urine Blood 3+H, Urine Nitrite NEGATIVE, Urine Bilir ubin NEGATIVE, Urine Urobilinogen 0.2, Urine Leukocyte Esterase (Auto) TRACEH, Urine WBC (Auto) 21H, Urine RBC (Auto) 96H, Urine Hyaline Casts (Auto) 0, Urine Bacteria (Auto) 1+H, Urine Squamous Epithelial Cells 4, Urine Amorphous Sediment (Auto) SMALLH, Urine Yeast-Like Cells (Auto) SMALLH, Urine Sperm (Auto) 10/26/19 11:28: Bedside Glucose (Misc Panel) 158H 10/26/19 16:45: Bedside Glucose (Misc Panel) 127H 10/26/19 20:09: Bedside Glucose (Misc Panel) 238H CBC/BMP Laboratory Tests 10/26/19 05:53 Microbiology Microbiology 10/22/19 Urine Culture - Final, Complete 10/22/19 Respiratory Virus Panel (PCR) (JUAN) - Final, Complete 10/22/19 Blood Culture - Preliminary, Resulted No Growth after 72 hours. All specime... 10/22/19 Blood Culture - Preliminary, Resulted No Growth after 72 hours. All specime... Current Medications Current Medications Medications (Trade) Dose Ordered Sig/Ronit Route PRN Reason Start Time Stop Time Status Last Admin Dose Admin Acetaminophen (Tylenol Tab) 650 mg Q6HP PRN PO PAIN / FEVER 10/22/19 04:00 10/25/19 11:23 DC 10/25/19 09:00 Albuterol Sulfate (Proventil, Ventolin Hfa) 2 puff TIDP PRN INH SOB/WHEEZING 10/22/19 01:00 10/24/19 21:07 Albuterol/ Ipratropium (Duoneb (Ipr 0.5mg/Alb 2.5mg)) 3 ml Q4HP PRN NEB SOB/WHEEZING 10/24/19 21:30 10/25/19 06:04 Amlodipine Besylate (Norvasc) 5 mg DAILY PO 10/23/19 09:00 10/25/19 09:07 DC 10/25/19 06:07 Amlodipine Besylate (Norvasc) 10 mg DAILY PO 10/26/19 09:00 10/26/19 08:35 Aspirin (Ecotrin) 325 mg DAILY PO 10/22/19 09:00 10/26/19 08:33 Atorvastatin Calcium (Lipitor) 20 mg DAILY@0900 PO 10/22/19 09:00 10/25/19 23:52 DC 10/25/19 08:59 Azithromycin 500 mg/IV Miscellaneous Supplies 1 each/ Dextrose 255 ml @ 255 mls/hr Q24H IV 10/22/19 12:00 10/22/19 16:34 DC 10/22/19 13:22 Ceftriaxone Sodium 2 gm/ Dextrose 50 ml @ 100 mls/hr Q24H IV 10/22/19 11:00 10/26/19 11:36 DC 10/26/19 11:09 Citric Acid/ Sodium Citrate (Bicitra) 30 ml BID PO 10/23/19 10:45 10/25/19 10:36 DC 10/25/19 08:59 Clopidogrel Bisulfate (PLAVix) 75 mg DAILY PO 10/22/19 09:00 10/26/19 08:33 Dextrose (Dextrose 50%) 25 ml ASDIRECTED PRN IV SEE LABEL COMMENTS 10/22/19 00:45 Ferrous Gluconate (Fergon) 324 mg BID PO 10/25/19 21:00 10/26/19 08:33 Ferrous Gluconate (Fergon) 324 mg DAILY PO 10/23/19 09:00 10/25/19 09:07 DC 10/25/19 08:59 Glucagon (Glucagon) 1 mg ASDIRECTED PRN SC SEE LABEL COMMENTS 10/22/19 00:45 Glucose (Glucose) 16 GM ASDIRECTED PRN PO SEE LABEL COMMENTS 10/22/19 00:45 Heparin Sodium (Porcine) (Heparin) 5,000 units Q12H SC 10/22/19 09:00 10/26/19 08:36 Home Med (Med Rec Complete!) ASDIRECTED XX 10/22/19 01:00 10/22/19 01:00 DC Hydralazine HCl (Apresoline) 10 mg Q8HP PRN IV HTN 10/25/19 23:30 10/25/19 23:42 DC Hydralazine HCl (Apresoline) 20 mg Q8HP PRN PO HTN 10/25/19 23:45 10/26/19 01:57 Insulin Human Lispro (HumaLOG INSULIN) SEE PROTOCOL TABLE AC SC 10/22/19 07:30 10/26/19 17:46 Insulin Human Lispro (HumaLOG INSULIN) SEE PROTOCOL TABLE QHS SC 10/22/19 21:00 Iron 200 mg/ Sodium Chloride 110 ml @ 110 mls/hr DAILY@1300 IV 10/25/19 13:00 10/26/19 09:47 DC 10/25/19 13:25 Lactobacillus Acidophilus (Bacid) 1 ea BIDWM PO 10/25/19 18:00 10/26/19 17:46 Metoprolol Tartrate (Lopressor) 25 mg DAILY PO 10/22/19 09:00 10/26/19 08:35 Ondansetron HCl (Zofran) 4 mg Q6HP PRN PO NAUSEA OR VOMITING 10/26/19 17:45 Oxycodone HCl (Roxicodone, Oxyir) 5 mg Q6HP PRN PO PAIN 10/22/19 12:45 10/26/19 15:52 Pantoprazole Sodium (Protonix) 40 mg BID PO 10/22/19 09:00 10/26/19 08:33 Piperacillin Sod/ Tazobactam Sod 2.25 gm/Dextrose 50 ml @ 100 mls/hr Q8H IV 10/26/19 12:00 11/02/19 11:59 10/26/19 12:20 Simethicone (Mylicon) 80 mg TIDP PRN PO GAS PAIN 10/24/19 15:00 10/26/19 17:46 Sodium Bicarbonate 75 meq/Sodium Chloride 1,075 ml @ 80 mls/hr [id number] IV 10/22/19 15:00 10/23/19 07:46 DC 10/22/19 17:54 Sodium Chloride 1,000 ml @ 80 mls/hr [id number] IV 10/22/19 00:15 10/22/19 12:34 DC 10/22/19 01:53 Torsemide (Demadex) 20 mg DAILY PO 10/26/19 11:45 10/26/19 11:56 Allergies Coded Allergies: prochlorperazine (Verified Allergy, Severe, tongue swelling, facial spasms, throat tightness, 01/02/19) sumatriptan (Verified Adverse Reaction, Intermediate, rapid HR, diaphoretic, 01/02/19) Joyce Garza MD Oct 26, 2019 20:46
[2019-10-26 22:00] VITALS: BP 160/78
[2019-10-27] MEDS: SIMETHICONE 80 MG CHEW TAB PO PRN ×3 (02:31→20:44)
[2019-10-27] MEDS: PIPERACILLIN/TAZOBACTAM SOD 2.25 GM in D5W MINI-BAG PLUS 50 ML IV SCH ×3 (03:58→20:34)
[2019-10-27] MEDS: oxyCODONE 5MG TAB PO PRN ×3 (03:59→20:45)
[2019-10-27 06:00] VITALS: BP 162/74
[2019-10-27 07:00] LABS: HEMATOCRIT 29.7 % (36.0-47.0); HEMOGLOBIN 9.6 g/dl (12.0-15.5); MEAN CORPUSCULAR HGB CONC 32.3 g/dl (32.0-36.5); MEAN CORPUSCULAR VOLUME 92.8 fl (80.0-96.0); PLATELET COUNT, AUTOMATED 432 10^3/uL (150-450); WHITE BLOOD COUNT 15.5 10^3/uL (4.0-10.0)
[2019-10-27 07:26] LABS: ALBUMIN 1.9 GM/DL (3.2-5.2); BILIRUBIN,TOTAL 0.3 MG/DL (0.2-1.0); CALCIUM LEVEL 8.3 MG/DL (8.8-10.2); CREATININE FOR GFR 2.58 MG/DL (0.55-1.30); POTASSIUM SERUM 4.8 MEQ/L (3.5-5.1)
[2019-10-27] MEDS: HumaLOG INSULIN (NovoLOG) PER UNIT SC SCH ×4 (07:30→21:00)
[2019-10-27] MEDS: FERROUS GLUCONATE 324 MG TAB PO SCH ×2 (08:40→20:35)
[2019-10-27] MEDS: CLOPIDOGREL 75 MG TAB PO SCH (08:40)
[2019-10-27] MEDS: ASPIRIN ENTERIC 325 MG TAB PO SCH (08:40)
[2019-10-27] MEDS: amLODIPine 10 MG TAB PO SCH (08:41)
[2019-10-27] MEDS: HEPARIN SOD (PORCINE) 5000UNITS/ML VIAL (J1644 PER 1000UNITS) SC SCH ×2 (08:42→20:34)
[2019-10-27] MEDS: PANTOPRAZOLE 40MG TAB (PROTONIX) PO SCH ×2 (08:51→20:34)
[2019-10-27] MEDS: LACTOBACILLUS ACIDOPHILUS CAP (BACID) PO SCH ×2 (08:51→17:49)
[2019-10-27] MEDS: METOPROLOL TART 25 MG TABLET PO SCH (08:51)
[2019-10-27] MEDS: TORSEMIDE 20 MG TAB PO SCH (08:51)
[2019-10-27] MEDS ORDERED: LEVEMIR (INSULIN DETEMIR) 1 UNITS/0.01ML SC SCH (09:00)
--- NOTE | 2019-10-27 13:19 | IPN ---
DATE: 10/27/2019 SUBJECTIVE: The patient was seen and examined at the bedside today morning. She is afebrile, hemodynamically stable. She reports her abdominal pain is getting better. She was sent for MRI yesterday. However, she became claustrophobic and the study was not completed. Renal function has plateaued. Creatinine has been fluctuating at around 2.4 to 2.5. She denies any shortness of breath at this time. She has mild persistent leukocytosis despite change in antibiotics yesterday. OBJECTIVE: Vital Signs: Temperature is 97.7 degrees Fahrenheit, blood pressure 162/70, pulse is 104, respiratory rate of 19, saturating 90% on room air. Intake and Output: Urine output recorded is 2.1 liters yesterday, 400 mL so far today since overnight. Weight in the bed scale is 96.4 kg, which is stable from yesterday. PHYSICAL EXAMINATION: General: The patient is awake, alert, oriented x3, laying in bed, in no apparent distress. Head and Neck Exam: Extraocular muscles intact. Pupils equally round and reactive to light. Mucous membranes are moist. Neck is supple. There is no jugular venous distention (JVD). Cardiovascular: S1, S2, regular rate. No edema of the bilateral lower extremities. Respiratory: Chest is clear to auscultation bilaterally. Bilateral equal air entry. No rales or rhonchi. Abdomen: Soft, positive bowel sounds. Mild tender to deep palpation in the epigastric region. Otherwise, no organomegaly. Musculoskeletal: No clubbing or cyanosis. Pulses are 2+. 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 Power is 5/5 in all extremities. LAB REVIEW: CBC showed WBC of 15.5, hemoglobin 9.6, platelets are 432. BMP showed sodium 137, potassium 4.8, chloride 100, bicarb 27, BUN 43, creatinine is 2.5, AST 20, ALT 64 alkaline phosphatase is 208. BNP is 6512, which is better today as compared with last time. Albumin is 1.9. CURRENT INPATIENT MEDICATIONS: The patient's medications were all reviewed by real. IV ceftriaxone was stopped yesterday. She is currently on IV Zosyn. She continues to be on torsemide 20 mg by mouth daily. No other change in the medications today as compared with yesterday. ASSESSMENT/PLAN: 1. Acute nonoliguric renal failure. The patient has polycystic kidneys and on top of that she got IV Toradol at the outside hospital. Renal function is stable and improving. Creatinine has plateaued at around 2.4 to 2. Okay to continue the diuretics at this time. 2. Persistent leukocytosis. She has mild persistent leukocytosis. IV antibiotic was changed to IV Zosyn. All the cultures are negative so far. 3. Hypertension. Blood pressure is optimized with current dose of diuretic, metoprolol, hydralazine and amlodipine. 4. Decompensated congestive heart failure. The patient was given the IV Lasix 2 days in a row. Currently, she is on torsemide 20 mg by mouth daily. Continue current dose. 5. Iron-deficiency anemia. IV Venofer was stopped because of persistent leukocytosis. She is on oral iron. Hemoglobin level is stable and slightly improving.
[2019-10-27 14:00] VITALS: BP 153/75
[2019-10-27] MEDS ORDERED: LORazepam 0.5 MG TAB PO PRN (15:30)
--- NOTE | 2019-10-27 15:47 | IPNPDOC ---
Date Seen The patient was seen on 10/27/19. Progress Note SUBJECTIVE: 90% with RA. The patient was unable to undergo MRCP due to claustrophobia and shortness of breath with laying flat yesterday, will try again today with Ativan and morphine to help ease abdominal pain and anxiety. WBC slightly increased, creatinine has plateaued. Urine analysis done 10/26/2019 shows worsened UTI compared to one done on admission. Awaiting urine culture. Denies chest pain, n/v/d, fevers, increased shortness of breath. OBJECTIVE: VITAL SIGNS: Please see below PHYSICAL EXAMINATION: CONSTITUTIONAL: No acute distress, sitting comfortably up in bed, AAO x 3 EYES: PERRLA, EOM intact HENT, MOUTH: Normocephalic, atraumatic, moist mucous membranes, nasal cannula in place. NECK: SUPPLE, no JVD, no lymphadenopathy, no carotid bruit CV: Regular rate and rhythm, S1S2 normal, no murmurs/rubs/gallops RESPIRATORY: Crackles in bilateral lower lung restrepo-mild, no rales/rhonchi/wheezes GI: No abdominal discomfort on exam. Obese abd. BS positive in 4 quadrants, s oft, nondistended, no rebound or guarding, no organomegaly : Deferred MUSCULOSKELETAL: Normal ROM. No cyanosis, clubbing, swelling, joint deformity, extremity edema INTEGUMENTARY: Intact, no rashes, no lesions, no erythema NEUROLOGIC: Cranial Nerves II-XII are intact, no focal deficits PSYCHIATRIC: Mood and affect are normal CURRENT MEDICATIONS: Please see below LABORATORY DATA: Please see below IMAGING: No new imaging. ASSESSMENT: 63 y/o F admitted for acute renal failure, uncontrolled HTN, acute hypoxic respiratory failure, UTI, worsening leukocytosis. PLAN: 1. Leukocytosis. Originally believed to be 2/2 to bilateral pyelonephritis was initial dx ;however, UCx showed NG, Repeat UA + for UTI that appears worsened. Afebrile, WBC increased to 15.5, not suspecting resp cause as CT chest done on 10/23 r/o PNA. GI not suspecting biliary cause of leukocytosis but would appreciate MRCP to further assess. C/w zosyn. F/u UA, daily CBC, MRCP, repeat blood cultures. 2. UTI. The UA repeated on 10/26/19 appeared worse than the one done on admission, where UCx showed NG. F/u repeat UCx, c/w zosyn. 3/ Acute renal failure likely 2/2 to polycystic kidney disease (PCKD) and medication (toradol). Cr plateaued at 2.4-2.6. Renal diet, avoid nephrotoxic medications (i.e. NSAIDs) but can continue torsemide daily now. Nephrology following. 4. Acute hypoxic respiratory failure 2/2 to acute diastolic CHF exacerbation, bilateral pleural effusions. Currently 90% on RA- this may be close to baseline with history of smoking. Currently in neg balance/24 hrs. C/w BB, CCB, low salt diet, monitor I&Os closely, daily wt. F/u BNP in AM. C/w BB, torsemide, CCB. 5. HTN likely 2/2 to PCKD. Stable. C/w torsemide, BB, CCB, hydralazine PRN. 6. Common hepatic duct dilation, 2 cm with distal tapering to 1 cm. Possibly 2/2 to physiologic post cholecystectomy phenomena vs Choledochal cyst type 1 vs Distal CBD stricture obstructive process. Possible cause of worsening leukocytosis? CMP showed improving AST/ALT, alk phos. Pain on exam is more epigastric, not RUQ. MRCP unable to be done due to patient on 10/26/19 but will be attempted again today. If she does not proceed with this today as planned, consider ultrasound abdomen. Gastroenterology -Dr. Trevizo following.. 7. Elevated liver enzymes. Improving slowly after stopping tylenol, statin. Consider CHD dilation as possible cause too. F/u MRCP, daily CMP. 8. Small bilateral pleural effusions. Neg fluid balance. C/w treatment under problem #3. 9. Polycystic kidney disease. Multiple renal cysts seen on CT abd/pelvis. Con mechanics handyman MRI with contrast. Nephrology following. 10. Abdominal aortic aneurysm, infrarenal and fusiform. Incidental finding on CT abd/pelvis. F/u with regularly scheduled US outpatient by PCP. 11. Chronic epigastric pain likely 2/2 to hiatal hernia, gas. States pain is like it always his. C/w PPI BID, simethicone 12. Trace pericardial effusion. Seen on limited echo done 10/24/19. C/w torsemide and will need f/u echo as o/p. 13. History of coronary artery disease. Denies chest pain, sob. Continue current dose of aspirin, Plavix, atorvastatin, metoprolol. 14. Diabetes mellitus, type 2. BS controlled. C/w AC/HS blood sugar checks, consistent carb diet, ISS. 15. Iron deficiency anemia. C/w PO iron supplement. S/p IV venofer. 16. DVT px. Heparin. DISPOSITION: Currently admitted under inpatient status. Plan is discharge home when medically improved. Nephrology and GI consulted. VS, I&O, 24H, Fishbone Vital Signs/I&O Vital Signs Date Time Temp Pulse Resp B/P (MAP) Pulse Ox O2 Delivery O2 Flow Rate FiO2 10/27/19 14:00 96.7 83 19 153/75 (101) 91 Room Air 10/27/19 10:46 92.0 I&O- Last 24 Hours up to 6 AM 10/27/19 06:00 Intake Total 2500 ml Output Total 1800 ml Balance 700 ml Laboratory Data 24H LABS Laboratory Tests 2 10/26/19 16:45: Bedside Glucose (Misc Panel) 127H 10/26/19 20:09: Bedside Glucose (Misc Panel) 238H 10/27/19 06:47: Nucleated Red Blood Cells % (auto) 0.0, Anion Gap 10, Glomerular Filtration Rate 20.0L, Calcium Level 8.3L, Total Bilirubin 0.3, Aspartate Amino Transf (AST/SGOT) 20, Alanine Aminotransferase (ALT/SGPT) 64, Alkaline Phosphatase 208 H, [id number]-Type Natriuretic Peptide 6512H, Total Protein 6.0L, Albumin 1.9L, Albumin/Globulin Ratio 0.5L 10/27/19 11:39: Bedside Glucose (Misc Panel) 179H CBC/BMP Laboratory Tests 10/27/19 06:47 Microbiology Microbiology 10/22/19 Urine Culture - Final, Complete 10/22/19 Respiratory Virus Panel (PCR) (JUAN) - Final, Complete 10/22/19 Blood Culture - Final, Complete NO GROWTH AFTER 5 DAYS 10/22/19 Blood Culture - Final, Complete NO GROWTH AFTER 5 DAYS Current Medications Current Medications Medications (Trade) Dose Ordered Sig/Ronit Route PRN Reason Start Time Stop Time Status Last Admin Dose Admin Acetaminophen (Tylenol Tab) 650 mg Q6HP PRN PO PAIN / FEVER 10/22/19 04:00 10/25/19 11:23 DC 10/25/19 09:00 Albuterol Sulfate (Proventil, Ventolin Hfa) 2 puff TIDP PRN INH SOB/WHEEZING 10/22/19 01:00 10/24/19 21:07 Albuterol/ Ipratropium (Duoneb (Ipr 0.5mg/Alb 2.5mg)) 3 ml Q4HP PRN NEB SOB/WHEEZING 10/24/19 21:30 10/25/19 06:04 Amlodipine Besylate (Norvasc) 5 mg DAILY PO 10/23/19 09:00 10/25/19 09:07 DC 10/25/19 06:07 Amlodipine Besylate (Norvasc) 10 mg DAILY PO 10/26/19 09:00 10/27/19 08:41 Aspirin (Ecotrin) 325 mg DAILY PO 10/22/19 09:00 10/27/19 08:40 Atorvastatin Calcium (Lipitor) 20 mg DAILY@0900 PO 10/22/19 09:00 10/25/19 23:52 DC 10/25/19 08:59 Azithromycin 500 mg/IV Miscellaneous Supplies 1 each/ Dextrose 255 ml @ 255 mls/hr Q24H IV 10/22/19 12:00 10/22/19 16:34 DC 10/22/19 13:22 Ceftriaxone Sodium 2 gm/ Dextrose 50 ml @ 100 mls/hr Q24H IV 10/22/19 11:00 10/26/19 11:36 DC 10/26/19 11:09 Citric Acid/ Sodium Citrate (Bicitra) 30 ml BID PO 10/23/19 10:45 10/25/19 10:36 DC 10/25/19 08:59 Clopidogrel Bisulfate (PLAVix) 75 mg DAILY PO 10/22/19 09:00 10/27/19 08:40 Dextrose (Dextrose 50%) 25 ml ASDIRECTED PRN IV SEE LABEL COMMENTS 10/22/19 00:45 Ferrous Gluconate (Fergon) 324 mg BID PO 10/25/19 21:00 10/27/19 08:40 Ferrous Gluconate (Fergon) 324 mg DAILY PO 10/23/19 09:00 10/25/19 09:07 DC 10/25/19 08:59 Glucagon (Glucagon) 1 mg ASDIRECTED PRN SC SEE LABEL COMMENTS 10/22/19 00:45 Glucose (Glucose) 16 GM ASDIRECTED PRN PO SEE LABEL COMMENTS 10/22/19 00:45 Heparin Sodium (Porcine) (Heparin) 5,000 units Q12H SC 10/22/19 09:00 10/27/19 08:42 Home Med (Med Rec Complete!) ASDIRECTED XX 10/22/19 01:00 10/22/19 01:00 DC Hydralazine HCl (Apresoline) 10 mg Q8HP PRN IV HTN 10/25/19 23:30 10/25/19 23:42 DC Hydralazine HCl (Apresoline) 20 mg Q8HP PRN PO HTN 10/25/19 23:45 10/26/19 01:57 Insulin Detemir (Levemir Insulin) 8 units QAM SC 10/27/19 09:00 10/27/19 08:53 Insulin Human Lispro (HumaLOG INSULIN) SEE PROTOCOL TABLE AC SC 10/22/19 07:30 10/27/19 11:51 Insulin Human Lispro (HumaLOG INSULIN) SEE PROTOCOL TABLE QHS SC 10/22/19 21:00 Iron 200 mg/ Sodium Chloride 110 ml @ 110 mls/hr DAILY@1300 IV 10/25/19 13:00 10/26/19 09:47 DC 10/25/19 13:25 Lactobacillus Acidophilus (Bacid) 1 ea BIDWM PO 10/25/19 18:00 10/27/19 08:51 Metoprolol Tartrate (Lopressor) 25 mg DAILY PO 10/22/19 09:00 10/27/19 08:51 Ondansetron HCl (Zofran) 4 mg Q6HP PRN PO NAUSEA OR VOMITING 10/26/19 17:45 Oxycodone HCl (Roxicodone, Oxyir) 5 mg Q6HP PRN PO PAIN 10/22/19 12:45 10/27/19 10:46 Pantoprazole Sodium (Protonix) 40 mg BID PO 10/22/19 09:00 10/27/19 08:51 Piperacillin Sod/ Tazobactam Sod 2.25 gm/Dextrose 50 ml @ 100 mls/hr Q8H IV 10/26/19 12:00 11/02/19 11:59 10/27/19 11:50 Simethicone (Mylicon) 80 mg TIDP PRN PO GAS PAIN 10/24/19 15:00 10/27/19 08:41 Sodium Bicarbonate 75 meq/Sodium Chloride 1,075 ml @ 80 mls/hr [id number] IV 10/22/19 15:00 10/23/19 07:46 DC 10/22/19 17:54 Sodium Chloride 1,000 ml @ 80 mls/hr [id number] IV 10/22/19 00:15 10/22/19 12:34 DC 10/22/19 01:53 Torsemide (Demadex) 20 mg DAILY PO 10/26/19 11:45 10/27/19 08:51 Allergies Coded Allergies: prochlorperazine (Verified Allergy, Severe, tongue swelling, facial spasms, throat tightness, 01/02/19) sumatriptan (Verified Adverse Reaction, Intermediate, rapid HR, diaphoretic, 01/02/19) Joyce Garza MD Oct 27, 2019 15:47
[2019-10-27] MEDS ORDERED: MORPHINE 2 MG/ML 1ML VIAL (J2270) IV ONE (16:00)
[2019-10-27] MEDS ORDERED: LORazepam 2 MG/ML VIAL IV ONE (16:45)
--- NOTE | 2019-10-27 18:01 | REPVR ---
PROCEDURE INFORMATION: Exam: MR Abdomen Without Contrast Exam date and time: 10/27/2019 5:39 PM Age: 63 years old Clinical indication: Abdominal pain; Acute; Patient HX: Ruq pain, nausea, vomitting; Additional info: Elevated lfts and wbc, chd dilation TECHNIQUE: Imaging protocol: MR of the abdomen without contrast. 3D rendering: MIP and/or 3D reconstructed images were created by the technologist. COMPARISON: CT ABD PELVIS W/O CONTRAST 10/24/2019 4:46 AM FINDINGS: Liver: Liver is enlarged and measures 22 cm. Gallbladder and bile ducts: Common bile duct is dilated measuring 2 cm. The pancreatic duct is dilated measures 5 mm. There is intrahepatic biliary ductal dilatation. Cholelithiasis. Pancreas: See "Gallbladder and bile ducts" finding. Spleen: Unremarkable. No splenomegaly. Adrenals: Unremarkable. No mass. Kidneys and ureters: Multiple bilateral renal cysts. The largest measures 3.2 cm at the lower pole of the right kidney and 1.2 cm in the lower pole of the left kidney. Stomach and bowel: Visualized stomach and intestines are unremarkable. Intraperitoneal space: No free fluid. Arteries: Abdominal aortic aneurysm measuring 4.1 cm. Bones/joints: Unremarkable. Soft tissues: Unremarkable. IMPRESSION: Intrahepatic and extrahepatic biliary ductal dilatation. There is dilated pancreatic duct. No filling defect. Findings may represent a obstruction at the pancreatic head. Etiology can be stricture/mass. CT with pancreatic protocol is suggested for further evaluation. Hepatomegaly. Cholelithiasis. Abdominal aortic aneurysm measuring 4.1 cm. Electronically signed by: John Gonzalez On 10/27/2019 18:00:55 PM
[2019-10-27 22:00] VITALS: BP 148/70
[2019-10-28] MEDS ORDERED: oxyCODONE 5MG TAB PO ONE
[2019-10-28] MEDS: PIPERACILLIN/TAZOBACTAM SOD 2.25 GM in D5W MINI-BAG PLUS 50 ML IV SCH (03:22)
[2019-10-28] MEDS: oxyCODONE 5MG TAB PO PRN ×4 (04:03→23:08)
[2019-10-28 06:00] VITALS: BP 160/80
[2019-10-28 06:40] LABS: HEMATOCRIT 29.1 % (36.0-47.0); HEMOGLOBIN 9.3 g/dl (12.0-15.5); MEAN CORPUSCULAR HEMOGLOBIN 29.7 pg (27.0-33.0); PLATELET COUNT, AUTOMATED 457 10^3/uL (150-450); RED BLOOD COUNT 3.13 10^6/uL (4.00-5.40); WHITE BLOOD COUNT 17.2 10^3/uL (4.0-10.0)
[2019-10-28 07:08] LABS: ALBUMIN 1.9 GM/DL (3.2-5.2); BILIRUBIN,TOTAL 0.3 MG/DL (0.2-1.0); CALCIUM LEVEL 8.2 MG/DL (8.8-10.2); CREATININE FOR GFR 2.74 MG/DL (0.55-1.30); GLOMERULAR FILTRATION RATE 18.6 (>45); POTASSIUM SERUM 4.6 MEQ/L (3.5-5.1)
[2019-10-28 09:17] LABS: C REACTIVE PROTEIN QUANTITATIV 14.9 MG/DL (0.00-0.30)
[2019-10-28] MEDS: LACTOBACILLUS ACIDOPHILUS CAP (BACID) PO SCH ×2 (09:19→16:57)
[2019-10-28] MEDS: HumaLOG INSULIN (NovoLOG) PER UNIT SC SCH ×4 (09:20→21:00)
[2019-10-28] MEDS: PANTOPRAZOLE 40MG TAB (PROTONIX) PO SCH ×2 (09:20→21:12)
[2019-10-28] MEDS: ASPIRIN ENTERIC 325 MG TAB PO SCH (09:20)
[2019-10-28] MEDS: CLOPIDOGREL 75 MG TAB PO SCH (09:20)
[2019-10-28] MEDS: TORSEMIDE 20 MG TAB PO SCH (09:20)
[2019-10-28] MEDS: FERROUS GLUCONATE 324 MG TAB PO SCH ×2 (09:20→21:13)
[2019-10-28] MEDS: HEPARIN SOD (PORCINE) 5000UNITS/ML VIAL (J1644 PER 1000UNITS) SC SCH (09:20)
[2019-10-28] MEDS: METOPROLOL TART 25 MG TABLET PO SCH (09:21)
[2019-10-28] MEDS: LEVEMIR (INSULIN DETEMIR) 1 UNITS/0.01ML SC SCH (09:21)
[2019-10-28] MEDS: amLODIPine 10 MG TAB PO SCH (09:21)
[2019-10-28 09:34] LABS: ERYTHROCYTE SEDIMENTATION RATE 125 mm/hr (0-30)
[2019-10-28] MEDS: SIMETHICONE 80 MG CHEW TAB PO PRN ×2 (14:38→23:07)
[2019-10-28] MEDS: ONDANSETRON 4 MG TAB PO PRN ×2 (15:45→23:07)
--- NOTE | 2019-10-28 17:33 | IPNPDOC ---
Date Seen The patient was seen on 10/28/19. Progress Note SUBJECTIVE: 90% with RA. MRCP showed intrahepatic and extrahepatic biliary ductal dilute dictation with dilated pink reticulocyte duct. May represent an obstruction in the pancreatic head such as a stricture or mass. CT with pancreatic protocol was unable to be performed due to kidney injury. Discussed the case with gastroenterology and they will be discussing ERCP with patient today. Chronic pain in epigastric area persists intermittently, unchanged in severity. Leukocytosis worsened to 17.2, not suspicious of infectious source but perhaps mass? UA repeated today because UCx was not sent on last UA. Denies chest pain, n/v/d, fevers, increased shortness of breath. OBJECTIVE: VITAL SIGNS: Please see below PHYSICAL EXAMINATION: CONSTITUTIONAL: No acute distress, sitting comfortably up in bed, AAO x 3 EYES: PERRLA, EOM intact HENT, MOUTH: Normocephalic, atraumatic, moist mucous membranes, nasal cannula in place. NECK: SUPPLE, no JVD, no lymphadenopathy, no carotid bruit CV: Regular rate and rhythm, S1S2 normal, no murmurs/rubs/gallops RESPIRATORY: Crackles in bilateral lower lung restrepo-mild, no rales/rhonchi/wheezes GI: mild discomfort when palpating epigastrum. Obese abd. BS positive in 4 quadrants, soft, nondistended, no rebound or guarding, no organomegaly : Deferred MUSCULOSKELETAL: Normal ROM. No cyanosis, clubbing, swelling, joint deformity, extremity edema INTEGUMENTARY: Intact, no rashes, no lesions, no erythema NEUROLOGIC: Cranial Nerves II-XII are intact, no focal deficits PSYCHIATRIC: Mood and affect are normal CURRENT MEDICATIONS: Please see below LABORATORY DATA: Please see below IMAGING: MRCP: Intrahepatic and extrahepatic biliary ductal dilatation. There is dilated pancreatic duct. No filling defect. Findings may represent a obstruction at the pancreatic head. Etiology can be stricture/mass. CT with pancreatic protocol is suggested for further evaluation. Hepatomegaly. Cholelithiasis. Abdominal aortic aneurysm measuring 4.1 cm. ASSESSMENT: 63 y/o F admitted for continued abdominal pain r/o pancreatic duct dilation cause or CHD dilation cause, acute renal failure, uncontrolled HTN, acute hypoxic respiratory failure, UTI, worsening leukocytosis, pancreatic duct dilation, CHD dilation. PLAN: 1. Pancreatic duct dilation cannot r/o 2/2 to stricture vs. mass?. Cannot do CT with pancreatic protocol due to Cr. Discussed with GI and they will discuss ERCP with patient. F/u suggestions. CMP much improved. 2. Leukocytosis r/o abdominal cause (i.e. pancreatic mass causing pancreatic duct dilation or something in CHD causing dilation, ? leukemoid rx?). UA was mild but UCx not sent. Repeat UA sent. Nephrology stopped Zosyn to see if WBC keeps going up. F/u UA, daily CBC, repeat blood cultures. 3. UTI. The UA repeated on 10/26/19 appeared worse than the one done on admission, where UCx showed NG. F/u repeat UA today, Zosyn stopped. 4. Acute renal failure likely 2/2 to polycystic kidney disease (PCKD) and med ication (toradol). Cr 2.7. Renal diet, avoid nephrotoxic medications (i.e. NSAIDs). C/w torsemide. Nephrology following. 5. Acute hypoxic respiratory failure 2/2 to acute diastolic CHF exacerbation, bilateral pleural effusions. Currently 90% on RA- this may be close to baseline with history of smoking. Currently in neg balance/24 hrs. C/w BB, CCB, low salt diet, monitor I&Os closely, daily wt. F/u BNP in AM. C/w BB, torsemide, CCB. 6. HTN likely 2/2 to PCKD. Stable. C/w torsemide, BB, CCB, hydralazine PRN. 7. Common hepatic duct dilation, 2 cm with distal tapering to 1 cm. Possibly 2/2 to physiologic post cholecystectomy phenomena vs Choledochal cyst type 1 vs Distal CBD stricture obstructive process. Possible cause of worsening leukocytosis? CMP showed improving AST/ALT, alk phos. Pain on exam is more epigastric, not RUQ. MRCP above. Gastroenterology -Dr. Trevizo following.. 8. Elevated liver enzymes. Improved slowly after stopping tylenol, statin. Consider CHD dilation as possible cause too. F/u daily CMP. 9. Small bilateral pleural effusions. Neg fluid balance. C/w treatment under problem #5. 10. Polycystic kidney disease. Multiple renal cysts seen on CT abd/pelvis. Consider MRI with contrast. Nephrology following. 11. Abdominal aortic aneurysm, infrarenal and fusiform. Incidental finding on CT abd/pelvis. F/u with regularly scheduled US outpatient by PCP. 12. Chronic epigastric pain likely 2/2 to hiatal hernia, gas. States pain is like it always his. C/w PPI BID, simethicone 13. Trace pericardial effusion. Seen on limited echo done 10/24/19. C/w torsemide and will need f/u echo as o/p. 14. History of coronary artery disease. Denies chest pain, sob. Continue current dose of aspirin, Plavix, atorvastatin, metoprolol. 15. Diabetes mellitus, type 2. BS controlled. C/w AC/HS blood sugar checks, consistent carb diet, ISS. 16. Iron deficiency anemia. C/w PO iron supplement. S/p IV venofer. 17. DVT px. Heparin. DISPOSITION: Currently admitted under inpatient status. Plan is discharge home when medically improved. Nephrology and GI consulted. VS, I&O, 24H, Fishbone Vital Signs/I&O Vital Signs Date Time Temp Pulse Resp B/P (MAP) Pulse Ox O2 Delivery O2 Flow Rate FiO2 10/28/19 16:56 20 10/28/19 09:21 94 113/83 10/28/19 06:00 98.9 92 Nasal Cannula 1.0 I&O- Last 24 Hours up to 6 AM 10/28/19 06:00 Intake Total 844 ml Output Total 2300 ml Balance -1456 ml Laboratory Data 24H LABS Laboratory Tests 2 10/27/19 21:34: Bedside Glucose (Misc Panel) 200H 10/28/19 06:18: Nucleated Red Blood Cells % (auto) 0.0, Differential Slide Review Report, Peripheral Blood Smear Path Consult PERIPHERAL SMEAR, Erythrocyte Sedimentation Rate 125H, Anion Gap 10, Glomerular Filtration Rate 18.6L, Calcium Level 8.2L, Total Bilirubin 0.3, Aspartate Amino Transf (AST/SGOT) 21, Alanine Aminotransferase (ALT/SGPT) 54, Alkaline Phosphatase 194H, C-Reactive Protein, Quantitative 14.90H, Total Protein 6.0L, Albumin 1.9L, Albumin/Globulin Ratio 0.5L, Amylase Level 42, Lipase 155 10/28/19 09:56: Urine Color YELLOW, Urine Appearance HAZY, Urine pH 5.0, Urine Specific Prosper 1.011, Urine Protein 2+H, Urine Glucose (UA) 1+H, Urine Ketones NEGATIVE, Urine Blood 3+H, Urine Nitrite NEGATIVE, Urine Bilirubin NEGATIVE, Urine Urobilinogen 0.2, Urine Leukocyte Esterase NEGATIVE, Urine WBC (Auto) 12H, Urine RBC (Auto) 37H, Urine Hyaline Casts (Auto) 0, Urine Bacteria (Auto) 1+H, Urine Squamous Epithelial Cells 1, Urine Amorphous Sediment SMALLH, Urine Sperm (Auto) 10/28/19 11:21: Bedside Glucose (Misc Panel) 212H 10/28/19 16:54: Bedside Glucose (Misc Panel) 71L CBC/BMP Laboratory Tests 10/28/19 06:18 Microbiology Microbiology 10/28/19 Urine Culture, Received Pending 10/27/19 Blood Culture - Preliminary, Resulted No growth after 24 hours . All specim... 10/27/19 Blood Culture - Preliminary, Resulted No growth after 24 hours . All specim... 10/22/19 Urine Culture - Final, Complete 10/22/19 Respiratory Virus Panel (PCR) (JUAN) - Final, Complete 10/22/19 Blood Culture - Final, Complete NO GROWTH AFTER 5 DAYS 10/22/19 Blood Culture - Final, Complete NO GROWTH AFTER 5 DAYS Current Medications Current Medications Medications (Trade) Dose Ordered Sig/Ronit Route PRN Reason Start Time Stop Time Status Last Admin Dose Admin Acetaminophen (Tylenol Tab) 650 mg Q6HP PRN PO PAIN / FEVER 10/22/19 04:00 10/25/19 11:23 DC 10/25/19 09:00 Albuterol Sulfate (Proventil, Ventolin Hfa) 2 puff TIDP PRN INH SOB/WHEEZING 10/22/19 01:00 10/24/19 21:07 Albuterol/ Ipratropium (Duoneb (Ipr 0.5mg/Alb 2.5mg)) 3 ml Q4HP PRN NEB SOB/WHEEZING 10/24/19 21:30 10/25/19 06:04 Amlodipine Besylate (Norvasc) 5 mg DAILY PO 10/23/19 09:00 10/25/19 09:07 DC 10/25/19 06:07 Amlodipine Besylate (Norvasc) 10 mg DAILY PO 10/26/19 09:00 10/28/19 09:21 Aspirin (Ecotrin) 325 mg DAILY PO 10/22/19 09:00 Hold 10/28/19 09:20 Atorvastatin Calcium (Lipitor) 20 mg DAILY@0900 PO 10/22/19 09:00 10/25/19 23:52 DC 10/25/19 08:59 Azithromycin 500 mg/IV Miscellaneous Supplies 1 each/ Dextrose 255 ml @ 255 mls/hr Q24H IV 10/22/19 12:00 10/22/19 16:34 DC 10/22/19 13:22 Ceftriaxone Sodium 2 gm/ Dextrose 50 ml @ 100 mls/hr Q24H IV 10/22/19 11:00 10/26/19 11:36 DC 10/26/19 11:09 Citric Acid/ Sodium Citrate (Bicitra) 30 ml BID PO 10/23/19 10:45 10/25/19 10:36 DC 10/25/19 08:59 Clopidogrel Bisulfate (PLAVix) 75 mg DAILY PO 10/22/19 09:00 Hold 10/28/19 09:20 Dextrose (Dextrose 50%) 25 ml ASDIRECTED PRN IV SEE LABEL COMMENTS 10/22/19 00:45 Ferrous Gluconate (Fergon) 324 mg BID PO 10/25/19 21:00 10/28/19 09:20 Ferrous Gluconate (Fergon) 324 mg DAILY PO 10/23/19 09:00 10/25/19 09:07 DC 10/25/19 08:59 Glucagon (Glucagon) 1 mg ASDIRECTED PRN SC SEE LABEL COMMENTS 10/22/19 00:45 Glucose (Glucose) 16 GM ASDIRECTED PRN PO SEE LABEL COMMENTS 10/22/19 00:45 Heparin Sodium (Porcine) (Heparin) 5,000 units Q12H SC 10/22/19 09:00 Hold 10/28/19 09:20 Home Med (Med Rec Complete!) ASDIRECTED XX 10/22/19 01:00 10/22/19 01:00 DC Hydralazine HCl (Apresoline) 10 mg Q8HP PRN IV HTN 10/25/19 23:30 10/25/19 23:42 DC Hydralazine HCl (Apresoline) 20 mg Q8HP PRN PO HTN 10/25/19 23:45 10/26/19 01:57 Insulin Detemir (Levemir Insulin) 8 units QAM SC 10/27/19 09:00 10/28/19 08:50 DC 10/27/19 08:53 Insulin Detemir (Levemir Insulin) 10 units QAM SC 10/28/19 09:00 10/28/19 09:21 Insulin Human Lispro (HumaLOG INSULIN) SEE PROTOCOL TABLE AC SC 10/22/19 07:30 10/28/19 13:18 Insulin Human Lispro (HumaLOG INSULIN) SEE PROTOCOL TABLE QHS SC 10/22/19 21:00 Iron 200 mg/ Sodium Chloride 110 ml @ 110 mls/hr DAILY@1300 IV 10/25/19 13:00 10/26/19 09:47 DC 10/25/19 13:25 Lactobacillus Acidophilus (Bacid) 1 ea BIDWM PO 10/25/19 18:00 10/28/19 16:57 Lorazepam (Ativan) 0.5 mg DAILYPRN PRN PO ANXIETY 10/27/19 15:30 10/27/19 16:34 DC Metoprolol Tartrate (Lopressor) 25 mg DAILY PO 10/22/19 09:00 10/28/19 09:21 Miscellaneous (Unresolved Clarification Entry) SEE LABEL COMMENTS DAILY XX 10/28/19 09:00 10/28/19 13:02 DC Miscellaneous (Unresolved Clarification Entry) SEE LABEL COMMENTS DAILY XX 10/28/19 09:00 10/28/19 15:36 DC Ondansetron HCl (Zofran) 4 mg Q6HP PRN PO NAUSEA OR VOMITING 10/26/19 17:45 10/28/19 15:45 Oxycodone HCl (Roxicodone, Oxyir) 5 mg Q6HP PRN PO PAIN 10/22/19 12:45 10/28/19 16:56 Pantoprazole Sodium (Protonix) 40 mg BID PO 10/22/19 09:00 10/28/19 09:20 Piperacillin Sod/ Tazobactam Sod 2.25 gm/Dextrose 50 ml @ 100 mls/hr Q8H IV 10/26/19 12:00 10/28/19 08:38 DC 10/28/19 03:22 Simethicone (Mylicon) 80 mg TIDP PRN PO GAS PAIN 10/24/19 15:00 10/28/19 14:38 Sodium Bicarbonate 75 meq/Sodium Chloride 1,075 ml @ 80 mls/hr [id number] IV 10/22/19 15:00 10/23/19 07:46 DC 10/22/19 17:54 Sodium Chloride 1,000 ml @ 80 mls/hr [id number] IV 10/22/19 00:15 10/22/19 12:34 DC 10/22/19 01:53 Torsemide (Demadex) 20 mg DAILY PO 10/26/19 11:45 10/28/19 09:20 Allergies Coded Allergies: prochlorperazine (Verified Allergy, Severe, tongue swelling, facial spasms, throat tightness, 01/02/19) sumatriptan (Verified Adverse Reaction, Intermediate, rapid HR, diaphoretic, 01/02/19) Joyce Garza MD Oct 28, 2019 17:33
[2019-10-28 22:00] VITALS: BP 130/60
[2019-10-29 06:00] VITALS: BP 168/70
[2019-10-29 06:08] LABS: BASO # 0.1 10^3/uL (0.0-0.2); BASO % 0.4 % (0.0-1.0); EOS # 0.3 10^3/uL (0.0-0.5); EOS % 1.7 % (0.0-3.0); HEMATOCRIT 28.3 % (36.0-47.0); LYMPH # 1.4 10^3/uL (1.5-5.0); LYMPH % 8.2 % (24.0-44.0); MEAN CORPUSCULAR HEMOGLOBIN 29.9 pg (27.0-33.0); MEAN CORPUSCULAR HGB CONC 31.8 g/dl (32.0-36.5); MONO # 1.5 10^3/uL (0.0-0.8); MONO % 9.2 % (0.0-5.0); NEUTROPHILS # 13.3 10^3/uL (1.5-8.5); NEUTROPHILS % 78.8 % (36.0-66.0); PLATELET COUNT, AUTOMATED 464 10^3/uL (150-450); RED BLOOD COUNT 3.01 10^6/uL (4.00-5.40); WHITE BLOOD COUNT 16.8 10^3/uL (4.0-10.0)
[2019-10-29] MEDS: oxyCODONE 5MG TAB PO PRN ×2 (06:29→19:54)
[2019-10-29 06:33] LABS: ALBUMIN 1.8 GM/DL (3.2-5.2); BILIRUBIN,TOTAL 0.3 MG/DL (0.2-1.0); CALCIUM LEVEL 8.7 MG/DL (8.8-10.2); CREATININE FOR GFR 2.94 MG/DL (0.55-1.30); GLOMERULAR FILTRATION RATE 17.2 (>45); POTASSIUM SERUM 4.6 MEQ/L (3.5-5.1); TOTAL PROTEIN 7.2 GM/DL (6.4-8.2)
[2019-10-29] MEDS: HumaLOG INSULIN (NovoLOG) PER UNIT SC SCH ×4 (08:57→21:11)
[2019-10-29] MEDS: FERROUS GLUCONATE 324 MG TAB PO SCH ×2 (08:57→21:10)
[2019-10-29] MEDS: LACTOBACILLUS ACIDOPHILUS CAP (BACID) PO SCH ×2 (08:58→18:50)
[2019-10-29] MEDS: PANTOPRAZOLE 40MG TAB (PROTONIX) PO SCH ×2 (08:58→21:10)
[2019-10-29] MEDS: amLODIPine 10 MG TAB PO SCH (08:58)
[2019-10-29] MEDS: METOPROLOL TART 25 MG TABLET PO SCH (08:58)
[2019-10-29] MEDS: LEVEMIR (INSULIN DETEMIR) 1 UNITS/0.01ML SC SCH (09:00)
--- NOTE | 2019-10-29 09:51 | IPN ---
DATE OF SERVICE: 10/28/2019 SUBJECTIVE: The patient was seen and examined at the bedside. She still reports burning pain in the epigastrium. She got the MRI of the abdomen done, which showed stenosis in the common bile duct (CBD) at the pancreatic head. She has persistent leukocytosis. However, all the cultures are negative. Antibiotic has been stopped now. No significant improvement in the kidney function. Creatinine has been fluctuating between 2.5-2.7. C-reactive protein is still high at 14.9. OBJECTIVE: Vital signs: Temperature is 98.9 degrees Fahrenheit, blood pressure 160/80, pulse is 93, respiratory rate of 24, saturating 92% on nasal cannula at 1 liter. Intake and output: Urine output recorded is 1200 mL yesterday, 2.4 liters so far today since overnight. Weight in the bed scale is 95.7 kg. PHYSICAL EXAMINATION: General: The patient is awake, alert, oriented times three, laying in bed. No apparent distress. Head and neck examination: Extraocular muscles intact. Pupils equally round and reactive to light. Mucous membranes are moist. Neck is supple. There is no jugular venous distention (JVD). Respiratory: Mildly decreased breath sounds at the bases. Otherwise, no active rales or rhonchi. Abdomen: Soft, obese, positive bowel sounds. Mild tenderness on the palpation in the epigastrium. Musculoskeletal: No clubbing or cyanosis. Pulses are 2+. Central nervous system (HR DIRECTOR): No focal deficit. Power is 5/5 in all extremities. LABORATORY REVIEW: Complete blood count (CBC) showed a WBC of 17.2. It was 15.5 yesterday> Hemoglobin 9.3. Platelets are 457. Repeat urinalysis done today showed it was hazy with 2+ protein, 3+ blood, WBCs are 12, 1+ bacteria, and small amounts of sediment. Basic metabolic profile (BMP) done today morning showed sodium 135, potassium 4.6, chloride 99, bicarbonate 26, BUN 40, creatinine is 2.7, calcium 8.2, AST is 21, ALT 54, alkaline phosphatase is 194, C-reactive protein 14.9, albumin is 1.9, amylase 42, lipase 155. MICROBIOLOGY: Repeat urine culture and blood cultures are pending. IMAGING: MRI of the abdomen was done yesterday, which showed intrahepatic and extrahepatic biliary ductal dilatation, dilated pancreatic duct, no filling defect. Findings may represent obstruction of the pancreatic head. Etiology can be stricture or a mass. Abdominal aortic aneurysm measuring 4.1 cm. CURRENT INPATIENT MEDICATIONS: The patient's medications were all reviewed by me. She was on Zosyn since 10/26/2019, and because of persistent leukocytosis and negative cultures, no source of infection. Antibiotic is being stopped at this time. Insulin Levemir dose has been changed to 10 units in the morning. No other significant change in the medications today as compared with yesterday. ASSESSMENT AND PLAN: 1. Acute nonoliguric renal failure. The patient had acute kidney injury secondary to use of intravenous (IV) Toradol. He has polycystic kidney. Renal function is slightly getting worse again. He was given IV and oral diuretics. I am going to continue current dose of torsemide 20 mg by mouth daily for now. Electrolytes and acid base status is within the acceptable range. 2. 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 The patient is going to be seen by GI. She is pending endoscopic retrograde cholangiopancreatography (ERCP) with a possible biopsy. 3. Persistent leukocytosis. No etiology is known. Cultures are negative so far. IV antibiotics are being stopped. 4. Hypertension. Continue current dose of metoprolol, hydralazine, and amlodipine. 5. Congestive heart failure. Volume status is optimized. Continue current dose of torsemide 20 mg by mouth daily. 6. Iron-deficiency anemia. Continue by mouth iron. MTDD
[2019-10-29] MEDS: MORPHINE 2 MG/ML 1ML VIAL (J2270) IV PRN (12:24)
[2019-10-29] MEDS ORDERED: ISOVUE-300 61% 50ML VIAL As Ordered ONE (14:46)
[2019-10-29] MEDS ORDERED: LIDOCAINE 2% 100MG/5ML SDV (FOR ANES.) As Ordered ONE (15:58)
[2019-10-29] MEDS ORDERED: ROCURONIUM BROMIDE 50 MG/5 ML VIAL As Ordered ONE (15:58)
[2019-10-29] MEDS ORDERED: propofoL 200 MG/20 ML VIAL As Ordered ONE (15:58)
[2019-10-29] MEDS ORDERED: MIDAZOLAM INJ 2MG/2ML VIAL (J2250 PER 1MG) As Ordered ONE (15:58)
[2019-10-29] MEDS ORDERED: ONDANSETRON 4MG/2ML VIAL As Ordered ONE (15:59)
[2019-10-29] MEDS ORDERED: SUGAMMADEX SODIUM 500 MG/5 ML VIAL (BRIDION) As Ordered ONE (15:59)
[2019-10-29] MEDS ORDERED: fentaNYL 100 MCG/2 ML INJECTION (J3010) As Ordered ONE (15:59)
[2019-10-29] MEDS ORDERED: dexameTHASONE 4 MG/ML 1ML VIAL (J1100 PER 1MG) As Ordered ONE (15:59)
--- NOTE | 2019-10-29 16:30 | CR.PDOC ---
General Date of Consultation: Oct 28, 2019 Referring Provider: Joyce Garza MD Attending Physician: ERIKA ALVAREZ MD Consultation Primary physician/ hospitalist: -Dr. Greg Cook ( PCP Dr. Saldana) Reason for consult: - Abnormal CT scan showing dialted CBD and intrahepatic george ts. HPI: 63-year-old female patient with HTN, DM type II, COPD, CAD s/p cardiac stent placement (on ASA 325 and Plavx 75mg), was transferred from [facility] for acute kidney injury, suspected UTI. Patient was treated with antibiotics for UTI and sepsis. Due to persistent abdominal pain and worsening WBC, patient had CT abdomen without contrast - which showed dialted CBD and GI was consulted for suspected biliary sepsis. Patient reports upper abdominal pain for a long time which is releived with opioid pain medications. Patient did report some nausea but no vomiting and her other symptoms include shortness of breath, increased urinary frequency and some burning.. Patient also reports having constipation ( likely from opioid pain medication). Pertinent negative GI symptoms: Patient denies fever, sick contacts, recent travel, vomiting, diarrhea, loss of appetite, early satiety or unintentional weight loss. No history of hematemesis, melena or hematochezia. Review of Systems: GI: as stated above CVS: No chest pain, No palpitations, No leg swelling. RS: No Shortness of breath, No Wheezing, no cough HOUSE ADMIN: No dizziness, No motor weakness, No sensory problems Hematology: No bruising, No gum bleeding, Musculoskeletal: No joint pain, ambulating well. Skin: No rash : No hematuria, No burning sensation of the urine ENT: No ear discharge/ pain, No dysphagia. Eyes: No photophobia. Jaundice Home medications: reviewed. Antithrombotic agents: - ASA 325, Plavix 75mg. Medical h/o: As above. Surgical h/o: Appendectomy and prior cholecystectomy. Social h/o: Alcohol: - Denies, smoking: active smoker , IVDA/ drugs: Denies . Family h/o of GI cancers - None Prior Endoscopies: None in [facility] Prior GI evaluations: - None in [facility] Exam: Vitals: reviewed General: Alert and oriented x 3, Mild to moderate distress from abdominal pain HEENT: Mild pallor, no icterus. Normal oropharynx, NO cervical lymph nodes. Chest: symmetric with bilateral clear air entry, CVS: S1, S2 heard, normal, no murmurs . Abdomen: Obese, non-distended, no surgical scars, soft, mild tenderness on deep palpation of epigastric and , no palpable masses, normal bowel sounds heard. Rectal exam: Patient refused / Deferred at this time in view of scheduled colonoscopy. Extremities: no pedal edema, pulses palpable. HOUSE ADMIN: no focal motor or sensory deficits. Moves all extremities Skin: no rash. Labs: reviewed. Imaging: reviewed. CT abdomen without contrast: Showed -- no liver mass, status post cholecystectomy. Fusiform dilation of the CHD upto 2cm with diatal tapering to 1 cm, differentials- post cholecystectomy changes vs choledochal cyst type 1 vs distal CBD stricture. ALso noted significant bilateral perinephric stranding and recal cysts filled with proteinaceous material or blood products. MRCP -- liver is enlarged (22cm), CBD measures 2cm, PD dilated to 5mm, there is intrahepatic biliary ductal dilation. suspected etiology of mass/ stricture. Impression: -- Upper abdominal pain atypical of biliary pain with slightly elevated bilirubin level with severely elevated WBC in patient with dilated CBD and intrahepatic ducts and PD in CT and MRCP, contrast imaging could not be done due to renal insufficiency. At this point based on the clinical evaluation, cannot rule out cholangitis. Other differentials - Choledochal cyst vs DIstal CBD st ricture vs Pancreatic mass. -- Elevated WBC with atypical abdominal pain -- work up suggestive of UTI/ pyelonephritis. Need to rule out other sources of sepsis. Recommendations: - Patient educated about the test results, possible differential diagnoses and All questions answered. - Continue management of UTI/ Pyelonephritis as per the primary team. - WIll hold plavix and ASA 325 mg for now and proceed with ERCP with both diagnostic and therapeutic intent, due to worsening WBC and persistent abdominal pain. -- Will schedule ERCP in OR. The procedure, indications, risks (including pancreatitis and its complication, bleeding, perforation, infection, hypo tension, respiratory depression, allergy, need for endotracheal intubation, surgery, colostomy, cardiac arrest, even ), benefits, limitations (e.g., missing a lesion), and all other alternatives (including no intervention) were explained to the patient who understood and agreed for the procedure. - Please follow the operative reprot for post procedure recommendations. Plan of care discussed with patient and primary team. Patient verbalized understanding and agreed with the plan. Vital Signs/I&O Vital Signs Date Time Temp Pulse Resp B/P (MAP) Pulse Ox O2 Delivery O2 Flow Rate FiO2 10/29/19 12:34 18 10/29/19 08:58 79 140/72 10/29/19 07:26 92 Nasal Cannula 1.0 10/29/19 06:00 98.7 I&O- Last 24 Hours up to 6 AM 10/29/19 05:59 Intake Total 1200 ml Output Total 2450 ml Balance -1250 ml Laboratory Data Labs 24H Laboratory Tests 2 10/28/19 16:54: Bedside Glucose (Misc Panel) 71L 10/28/19 18:08: Bedside Glucose (Misc Panel) 177H 10/28/19 21:15: Bedside Glucose (Misc Panel) 170H 10/29/19 05:45: Immature Granulocyte % (Auto) 1.7, Neutrophils (%) (Auto) 78.8H, Lymphocytes (%) (Auto) 8.2L, Monocytes (%) (Auto) 9.2H, Eosinophils (%) (Auto) 1.7, Basophils (% ) (Auto) 0.4, Neutrophils # (Auto) 13.3H, Lymphocytes # (Auto) 1.4L, Monocytes # (Auto) 1.5H, Eosinophils # (Auto) 0.3, Basophils # (Auto) 0.1, Nucleated Red Blood Cells % (auto) 0.0, Anion Gap 8, Glomerular Filtration Rate 17.2L, Calcium Level 8.7L, Total Bilirubin 0.3, Aspartate Amino Transf (AST/SGOT) 16, Alanine Aminotransferase (ALT/SGPT) 36, Alkaline Phosphatase 200H, Total Protein 7.2, Albumin 1.8L, Albumin/Globulin Ratio 0.3L 10/29/19 12:17: Bedside Glucose (Misc Panel) 120H CBC/BMP Laboratory Tests 10/29/19 05:45 Microbiology Microbiology 10/28/19 Urine Culture - Final, Complete 10/27/19 Blood Culture - Preliminary, Resulted No growth after 24 hours . All specim... 10/27/19 Blood Culture - Preliminary, Resulted No growth after 24 hours . All specim... 10/22/19 Urine Culture - Final, Complete 10/22/19 Respiratory Virus Panel (PCR) (JUAN) - Final, Complete 10/22/19 Blood Culture - Final, Complete NO GROWTH AFTER 5 DAYS 10/22/19 Blood Culture - Final, Complete NO GROWTH AFTER 5 DAYS Allergies Coded Allergies: prochlorperazine (Verified Allergy, Severe, tongue swelling, facial spasms, throat tightness, 01/02/19) sumatriptan (Verified Adverse Reaction, Intermediate, rapid HR, diaphoretic, 01/02/19) Home Medications Scheduled Aspirin (Aspirin EC) 325 Mg Tablet.dr, 325 MG PO DAILY, (Reported) Atorvastatin Calcium (Atorvastatin Calcium) 20 Mg Tablet, 20 MG PO QHS, (Reported) Clopidogrel Bisulfate (Clopidogrel) 75 Mg Tablet, 75 MG PO DAILY, (Reported) Furosemide (Furosemide) 40 Mg Tablet, 40 MG PO DAILY, (Reported) Metoprolol Tartrate (Metoprolol Tartrate) 25 Mg Tablet, 25 MG PO DAILY, (Reported) Pantoprazole Sodium (Pantoprazole Sodium) 40 Mg Tablet.dr, 40 MG PO BID, (Reported) Sitagliptin Phosphate (Januvia) 100 Mg Tablet, 100 MG PO DAILY, (Reported) Scheduled PRN Albuterol Sulfate (Proair Hfa) 8.5 Gm Hfa.aer.ad, 2 PUFF INH TIDP PRN for SOB/WHEEZING, (Reported) Ipratropium/Albuterol Sulfate (Iprat-Albut 0.5-3(2.5) mg/3 ml) 3 Ml Ampul.neb, 1 VIAL NEB TID PRN for SHORTNESS OF BREATH, (Reported) ERIKA ALVAREZ MD Oct 29, 2019 16:29
[2019-10-29] MEDS ORDERED: GLUCAGON INJ 1MG VIAL As Ordered ONE (16:42)
[2019-10-29] MEDS ORDERED: ALBUTEROL 6.7GM INHALER **FOR ANES. CART/OMNICELL ONLY As Ordered ONE (16:45)
--- NOTE | 2019-10-29 17:33 | ROOR ---
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 No Referring Physician 1. No Referring Physician, Admin. Requesting Provider: Medicines: Monitored Anesthesia Care Complications: No immediate complications. Procedure: Pre-Anesthesia Assessment: - Prior to the procedure, a History and Physical was performed, and patient medications and allergies were reviewed. The patient is competent. The risks and benefits of the procedure and the sedation options and risks were discussed with the patient. All questions were answered and informed consent was obtained. Patient identification and proposed procedure were verified by the physician, the nurse and the anesthesiologist in the procedure room. Mental Status Examination: alert and oriented. Airway Examination: normal oropharyngeal airway and neck mobility. Respiratory Examination: clear to auscultation. CV Examination: normal. Prophylactic Antibiotics: The patient does not require prophylactic antibiotics. Prior Anticoagulants: The patient has taken no previous anticoagulant or antiplatelet agents. ASA Grade Assessment: III - A patient with severe systemic disease. After reviewing the risks and benefits, the patient was deemed in satisfactory condition to undergo the procedure. The anesthesia plan was to use monitored anesthesia care (MAC). Immediately prior to administration of medications, the patient was re-assessed for adequacy to receive sedatives. The heart rate, respiratory rate, oxygen saturations, blood pressure, adequacy of pulmonary ventilation, and response to care were monitored throughout the procedure. The physical status of the patient was re-assessed after the procedure. The Duodenoscope was introduced through the mouth, and advanced to the duodenum and used to inject contrast into the bile duct. The ERCP was accomplished without difficulty. The patient tolerated the procedure well. Findings: A undraped artist model film of the abdomen was obtained. Surgical clips, consistent with a previous cholecystectomy, were seen in the area of the right upper quadrant of the abdomen. The esophagus was successfully intubated under direct vision. The scope was advanced to a normal major papilla in the descending duodenum without detailed examination of the pharynx, larynx and associated structures, and upper GI tract. The upper GI tract was grossly normal. A 0.035 inch x 260 cm straight Hydra Jagwire was passed into the biliary tree. The short-nosed traction sphincterotome was passed over the guidewire and the bile duct was then deeply cannulated. Contrast was injected. I personally interpreted the bile duct images. Ductal flow of contrast was adequate. Image quality was adequate. Contrast extended to the cystic duct. Contrast extended to the entire biliary tree. The main bile duct and common hepatic duct were diffusely dilated, uncertain significance. The largest diameter was 10 mm. A cholecystectomy had been performed. Cells for cytology were obtained by brushing in the lower third of the main bile duct. The biliary orifice was stenotic. This appeared indeterminate (neither benign nor malignant). One 10 mm by 4 cm covered metal stent was placed into the common bile duct. Bile flowed through the stent. The stent was in good position. Impression: - Biliary papillary stenosis, indeterminate. - The entire main bile duct and common hepatic duct were dilated, uncertain significance. - The patient has had a cholecystectomy. - Cells for cytology obtained in the lower third of the main duct. - One covered metal stent was placed into the common bile duct. Recommendation: - The patient will be observed post-procedure, until all discharge criteria are met. - Patient has a contact number available for emergencies. The signs and symptoms of potential delayed complications were discussed with the patient. Return to normal activities tomorrow. Written discharge instructions were provided to the patient. - Clear liquid diet today, then advance as tolerated to high fiber diet, cardiac diet and low fat diet. - Await cytology results. - Use broad spectrum antibiotics for 7 days. - Repeat ERCP in 3 months for sphicterotomy and stent removal/ exchange when patient can be off Plavix. - Return to GI clinic in [facility] (address [address], [address], [place], [place]) in 4 -- 6 weeks. Please call GI clinic @ [phone] for apppointment date and time. - Return to primary care physician. David Trevizo MD David Trevizo MD 10/29/2019 5:33:10 PM Electronically signed by David Trevizo MD Number of Addenda: 0 Note Initiated On: 10/29/2019 4:27 PM Estimated Blood Loss: Estimated blood loss was minimal.
--- NOTE | 2019-10-29 17:49 | IPNPDOC ---
Date Seen The patient was seen on 10/29/19. Progress Note SUBJECTIVE: ERCP today. Abdominal pain persists, unchanged in character, location or severity. -1206/24 hrs, WBC 16.8, afebrile. AST/ALT wnl. Denies chest pain, n/v/d, fevers, increased shortness of breath. OBJECTIVE: VITAL SIGNS: Please see below PHYSICAL EXAMINATION: CONSTITUTIONAL: No acute distress, sitting comfortably up in bed, AAO x 3 EYES: PERRLA, EOM intact HENT, MOUTH: Normocephalic, atraumatic, moist mucous membranes, nasal cannula in place. NECK: SUPPLE, no JVD, no lymphadenopathy, no carotid bruit CV: Regular rate and rhythm, S1S2 normal, no murmurs/rubs/gallops RESPIRATORY: Crackles in bilateral lower lung restrepo-mild, no rales/rhonchi/wheezes GI: mild discomfort when palpating epigastrum. Obese abd. BS positive in 4 quadrants, soft, nondistended, no rebound or guarding, no organomegaly : Deferred MUSCULOSKELETAL: Normal ROM. No cyanosis, clubbing, swelling, joint deformity, extremity edema INTEGUMENTARY: Intact, no rashes, no lesions, no erythema NEUROLOGIC: Cranial Nerves II-XII are intact, no focal deficits PSYCHIATRIC: Mood and affect are normal CURRENT MEDICATIONS: Please see below LABORATORY DATA: Please see below IMAGING: MRCP: Intrahepatic and extrahepatic biliary ductal dilatation. There is dilated pancreatic duct. No filling defect. Findings may represent a obstruction at the pancreatic head. Etiology can be stricture/mass. CT with pancreatic protocol is suggested for further evaluation. Hepatomegaly. Cholelithiasis. Abdominal aortic aneurysm measuring 4.1 cm. ASSESSMENT: 63 y/o F admitted for continued abdominal pain r/o pancreatic duct dilation cause or CHD dilation cause, acute renal failure, uncontrolled HTN, acute hypoxic respiratory failure, UTI, worsening leukocytosis, pancreatic duct dilation, CHD dilation. PLAN: 1. Pancreatic duct dilation cannot r/o 2/2 to stricture vs. mass?. Cannot do CT with pancreatic protocol due to Cr. ERCP today, f/u with GI. NPO. 2. Common hepatic duct dilation, 2 cm with distal tapering to 1 cm. Possibly 2/2 to physiologic post cholecystectomy phenomena vs Choledochal cyst type 1 vs Distal CBD stricture obstructive process. Possible cause of worsening leukocytosis? CMP showed resolved AST/ALT. ERCP today. GI following 3. Leukocytosis r/o abdominal cause (i.e. pancreatic mass causing pancreatic duct dilation or something in CHD causing dilation, ? leukemoid rx?). UA was mild but UCx not sent. Repeat UA sent. Nephrology stopped Zosyn to see if WBC keeps going up. F/u UA, daily CBC, repeat blood cultures. 4. UTI. Repeat UA was done, + but appeared better. UCx NG. No abx treatment at this time. 5. Acute renal failure likely 2/2 to polycystic kidney disease (PCKD) and medication (toradol). Cr worsened at 2.9, nephrology following. C/w torsemide C/w renal diet, avoid nephrotoxic medications (i.e. NSAIDs). 6. Acute hypoxic respiratory failure 2/2 to acute diastolic CHF exacerbation, bilateral pleural effusions. BNP improved. -1.2L/24 hrs Currently 90% on RA- this may be close to baseline with history of smoking. Currently in neg balance/24 hrs. C/w BB, CCB, torsemide, low salt diet, monitor I&Os closely, daily wt. 7. HTN likely 2/2 to PCKD. Stable. C/w torsemide, BB, CCB, hydralazine PRN. 8. Elevated liver enzymes. Resolved. 9. Small bilateral pleural effusions. Neg fluid balance. C/w treatment under problem #6. 10. Polycystic kidney disease. Multiple renal cysts seen on CT abd/pelvis. Consider MRI with contrast. Nephrology following. 11. Abdominal aortic aneurysm, infrarenal and fusiform. Incidental finding on CT abd/pelvis. F/u with regularly scheduled US outpatient by PCP. 12. Chronic epigastric pain likely 2/2 to hiatal hernia, gas. States pain is like it always his. C/w PPI BID, simethicone 13. Trace pericardial effusion. Seen on limited echo done 10/24/19. C/w torsemide and will need f/u echo as o/p. 14. History of coronary artery disease. Denies chest pain, sob. Continue current dose of aspirin, Plavix, atorvastatin, metoprolol. 15. Diabetes mellitus, type 2. BS controlled. C/w AC/HS blood sugar checks, co nsistent carb diet, ISS. 16. Iron deficiency anemia. C/w PO iron supplement. S/p IV venofer. 17. DVT px. Heparin. DISPOSITION: Currently admitted under inpatient status. ERCP today. Plan is [facility] home when medically improved. Nephrology and GI consulted. VS, I&O, 24H, Fishbone Vital Signs/I&O Vital Signs Date Time Temp Pulse Resp B/P (MAP) Pulse Ox O2 Delivery O2 Flow Rate FiO2 10/29/19 12:34 18 10/29/19 08:58 79 140/72 10/29/19 07:26 92 Nasal Cannula 1.0 10/29/19 06:00 98.7 I&O- Last 24 Hours up to 6 AM 10/29/19 05:59 Intake Total 1200 ml Output Total 2450 ml Balance -1250 ml Laboratory Data 24H LABS Laboratory Tests 2 10/28/19 18:08: Bedside Glucose (Misc Panel) 177H 10/28/19 21:15: Bedside Glucose (Misc Panel) 170H 10/29/19 05:45: Immature Granulocyte % (Auto) 1.7, Neutrophils (%) (Auto) 78.8H, Lymphocytes (%) (Auto) 8.2L, Monocytes (%) (Auto) 9.2H, Eosinophils (%) (Auto) 1.7, Basophils (%) (Auto) 0.4, Neutrophils # (Auto) 13.3H, Lymphocytes # (Auto) 1.4L, Monocytes # (Auto) 1.5H, Eosinophils # (Auto) 0.3, Basophils # (Auto) 0.1, Nucleated Red Blood Cells % (auto) 0.0, Anion Gap 8, Glomerular Filtration Rate 17.2L, Calcium Level 8.7L, Total Bilirubin 0.3, Aspartate Amino Transf (AST/SGOT) 16, Alanine Aminotransferase (ALT/SGPT) 36, Alkaline Phosphatase 200H, Total Protein 7.2, Albumin 1.8L, Albumin/Globulin Ratio 0.3L 10/29/19 12:17: Bedside Glucose (Misc Panel) 120H CBC/BMP Laboratory Tests 10/29/19 05:45 Microbiology Microbiology 10/28/19 Urine Culture - Final, Complete 10/27/19 Blood Culture - Preliminary, Resulted No Growth after 48 hours. All Specime... 10/27/19 Blood Culture - Preliminary, Resulted No Growth after 48 hours. All Specime... 6/15/20 Urine Culture - Final, Complete 10/22/19 Respiratory Virus Panel (PCR) (JUAN) - Final, Complete 10/22/19 Blood Culture - Final, Complete NO GROWTH AFTER 5 DAYS 10/22/19 Blood Culture - Final, Complete NO GROWTH AFTER 5 DAYS Current Medications Current Medications Medications (Trade) Dose Ordered Sig/Ronit Route PRN Reason Start Time Stop Time Status Last Admin Dose Admin Acetaminophen (Tylenol Tab) 650 mg Q6HP PRN PO PAIN / FEVER 10/22/19 04:00 10/25/19 11:23 DC 10/25/19 09:00 Albuterol Sulfate (Proventil, Ventolin Hfa) 2 puff TIDP PRN INH SOB/WHEEZING 10/22/19 01:00 10/24/19 21:07 Albuterol/ Ipratropium (Duoneb (Ipr 0.5mg/Alb 2.5mg)) 3 ml Q4HP PRN NEB SOB/WHEEZING 10/24/19 21:30 10/25/19 06:04 Amlodipine Besylate (Norvasc) 5 mg DAILY PO 10/23/19 09:00 10/25/19 09:07 DC 10/25/19 06:07 Amlodipine Besylate (Norvasc) 10 mg DAILY PO 10/26/19 09:00 10/29/19 08:58 Aspirin (Ecotrin) 325 mg DAILY PO 10/22/19 09:00 Hold 10/28/19 09:20 Atorvastatin Calcium (Lipitor) 20 mg DAILY@0900 PO 10/22/19 09:00 10/25/19 23:52 DC 10/25/19 08:59 Azithromycin 500 mg/IV Miscellaneous Supplies 1 each/ Dextrose 255 ml @ 255 mls/hr Q24H IV 10/22/19 12:00 10/22/19 16:34 DC 10/22/19 13:22 Ceftriaxone Sodium 2 gm/ Dextrose 50 ml @ 100 mls/hr Q24H IV 10/22/19 11:00 10/26/19 11:36 DC 10/26/19 11:09 Citric Acid/ Sodium Citrate (Bicitra) 30 ml BID PO 10/23/19 10:45 10/25/19 10:36 DC 10/25/19 08:59 Clopidogrel Bisulfate (PLAVix) 75 mg DAILY PO 10/22/19 09:00 Hold 10/28/19 09:20 Dextrose (Dextrose 50%) 25 ml ASDIRECTED PRN IV SEE LABEL COMMENTS 10/22/19 00:45 Ferrous Gluconate (Fergon) 324 mg BID PO 10/25/19 21:00 10/29/19 08:57 Ferrous Gluconate (Fergon) 324 mg DAILY PO 10/23/19 09:00 10/25/19 09:07 DC 10/25/19 08:59 Glucagon (Glucagon) 1 mg ASDIRECTED PRN SC SEE LABEL COMMENTS 10/22/19 00:45 Glucose (Glucose) 16 GM ASDIRECTED PRN PO SEE LABEL COMMENTS 10/22/19 00:45 Heparin Sodium (Porcine) (Heparin) 5,000 units Q12H SC 10/22/19 09:00 Hold 10/28/19 09:20 Home Med (Med Rec Complete!) ASDIRECTED XX 10/22/19 01:00 10/22/19 01:00 DC Hydralazine HCl (Apresoline) 10 mg Q8HP PRN IV HTN 10/25/19 23:30 10/25/19 23:42 DC Hydralazine HCl (Apresoline) 20 mg Q8HP PRN PO HTN 10/25/19 23:45 10/26/19 01:57 Insulin Detemir (Levemir Insulin) 8 units QAM SC 10/27/19 09:00 10/28/19 08:50 DC 10/27/19 08:53 Insulin Detemir (Levemir Insulin) 10 units QAM SC 10/28/19 09:00 10/28/19 09:21 Insulin Human Lispro (HumaLOG INSULIN) SEE PROTOCOL TABLE AC SC 10/22/19 07:30 10/28/19 13:18 Insulin Human Lispro (HumaLOG INSULIN) SEE PROTOCOL TABLE QHS SC 10/22/19 21:00 Iron 200 mg/ Sodium Chloride 110 ml @ 110 mls/hr DAILY@1300 IV 10/25/19 13:00 10/26/19 09:47 DC 10/25/19 13:25 Lactobacillus Acidophilus (Bacid) 1 ea BIDWM PO 10/25/19 18:00 10/29/19 08:58 Lorazepam (Ativan) 0.5 mg DAILYPRN PRN PO ANXIETY 10/27/19 15:30 10/27/19 16:34 DC Metoprolol Tartrate (Lopressor) 25 mg DAILY PO 10/22/19 09:00 10/29/19 08:58 Miscellaneous (Unresolved Clarification Entry) SEE LABEL COMMENTS DAILY XX 10/28/19 09:00 10/28/19 13:02 DC Miscellaneous (Unresolved Clarification Entry) SEE LABEL COMMENTS DAILY XX 10/28/19 09:00 10/28/19 15:36 DC Morphine Sulfate (Morphine Sulfate Inj) 1 mg Q8HP PRN IV MODERATE PAIN (PS 5-7) 10/29/19 12:00 10/29/19 12:24 Ondansetron HCl (Zofran) 4 mg Q6HP PRN PO NAUSEA OR VOMITING 10/26/19 17:45 10/28/19 23:07 Oxycodone HCl (Roxicodone, Oxyir) 5 mg Q6HP PRN PO PAIN 10/22/19 12:45 10/29/19 06:29 Pantoprazole Sodium (Protonix) 40 mg BID PO 10/22/19 09:00 10/29/19 08:58 Piperacillin Sod/ Tazobactam Sod 2.25 gm/Dextrose 50 ml @ 100 mls/hr Q8H IV 10/26/19 12:00 10/28/19 08:38 DC 10/28/19 03:22 Simethicone (Mylicon) 80 mg TIDP PRN PO GAS PAIN 10/24/19 15:00 10/28/19 23:07 Sodium Bicarbonate 75 meq/Sodium Chloride 1,075 ml @ 80 mls/hr [id number] IV 10/22/19 15:00 10/23/19 07:46 DC 10/22/19 17:54 Sodium Chloride 1,000 ml @ 80 mls/hr [id number] IV 10/22/19 00:15 10/22/19 12:34 DC 10/22/19 01:53 Torsemide (Demadex) 20 mg DAILY PO 10/26/19 11:45 10/29/19 07:32 DC 10/28/19 09:20 Allergies Coded Allergies: prochlorperazine (Verified Allergy, Severe, tongue swelling, facial spasms, throat tightness, 01/02/19) sumatriptan (Verified Adverse Reaction, Intermediate, rapid HR, diaphoretic, 01/02/19) Joyce Garza MD Oct 29, 2019 17:49
[2019-10-29] MEDS ORDERED: IPRATROPIUM 0.5MG/ALBUTEROL 2.5MG INH SOL UD 3ML (DUONEB) As Ordered ONE (17:57)
[2019-10-29] MEDS: IPRATROPIUM 0.5MG/ALBUTEROL 2.5MG INH SOL UD 3ML (DUONEB) NEB PRN (17:59)
[2019-10-29] MEDS ORDERED: ONDANSETRON 4MG/2ML VIAL IV PRN (18:15)
[2019-10-29] MEDS ORDERED: fentaNYL 100 MCG/2 ML INJECTION (J3010) IV PRN (18:15)
[2019-10-29] MEDS ORDERED: LR 1,000 ML IV SCH (18:15)
[2019-10-29] MEDS: HEPARIN SOD (PORCINE) 5000UNITS/ML VIAL (J1644 PER 1000UNITS) SC SCH (21:10)
[2019-10-29 22:00] VITALS: BP 141/2
[2019-10-30] MEDS: oxyCODONE 5MG TAB PO PRN ×4 (03:02→23:58)
[2019-10-30 06:13] LABS: BASO % 0.1 % (0.0-1.0); HEMATOCRIT 27.1 % (36.0-47.0); HEMOGLOBIN 8.4 g/dl (12.0-15.5); LYMPH # 0.6 10^3/uL (1.5-5.0); LYMPH % 3.2 % (24.0-44.0); MEAN CORPUSCULAR HEMOGLOBIN 29.3 pg (27.0-33.0); MEAN CORPUSCULAR VOLUME 94.4 fl (80.0-96.0); MONO # 0.9 10^3/uL (0.0-0.8); MONO % 4.6 % (0.0-5.0); NEUTROPHILS # 18.4 10^3/uL (1.5-8.5); NEUTROPHILS % 90.8 % (36.0-66.0); PLATELET COUNT, AUTOMATED 475 10^3/uL (150-450); RED BLOOD COUNT 2.87 10^6/uL (4.00-5.40); WHITE BLOOD COUNT 20.2 10^3/uL (4.0-10.0)
[2019-10-30 06:32] LABS: ALBUMIN 1.9 GM/DL (3.2-5.2); ALT/SGPT 39 U/L (12-78); BILIRUBIN,TOTAL 0.2 MG/DL (0.2-1.0); BLOOD UREA NITROGEN 41 MG/DL (7-18); CALCIUM LEVEL 8.3 MG/DL (8.8-10.2); CARBON DIOXIDE LEVEL 26 MEQ/L (21-32); CHLORIDE LEVEL 101 MEQ/L (98-107); CREATININE FOR GFR 3.12 MG/DL (0.55-1.30); GLUCOSE, FASTING 154 MG/DL (70-100); POTASSIUM SERUM 5.2 MEQ/L (3.5-5.1); SODIUM LEVEL 136 MEQ/L (136-145); TOTAL PROTEIN 6.1 GM/DL (6.4-8.2)
[2019-10-30 07:57] LABS: COMPLEMENT C3 132 MG/DL (90-180); COMPLEMENT C4 29 MG/DL (10-40)
[2019-10-30] MEDS: HumaLOG INSULIN (NovoLOG) PER UNIT SC SCH ×4 (08:18→21:00)
[2019-10-30] MEDS: LEVEMIR (INSULIN DETEMIR) 1 UNITS/0.01ML SC SCH (08:18)
[2019-10-30] MEDS: HEPARIN SOD (PORCINE) 5000UNITS/ML VIAL (J1644 PER 1000UNITS) SC SCH ×2 (08:18→21:16)
[2019-10-30] MEDS: FERROUS GLUCONATE 324 MG TAB PO SCH ×2 (08:19→21:16)
[2019-10-30] MEDS: PANTOPRAZOLE 40MG TAB (PROTONIX) PO SCH ×2 (08:19→21:16)
[2019-10-30] MEDS: amLODIPine 10 MG TAB PO SCH (08:19)
[2019-10-30] MEDS: METOPROLOL TART 25 MG TABLET PO SCH (08:19)
[2019-10-30] MEDS: LACTOBACILLUS ACIDOPHILUS CAP (BACID) PO SCH ×2 (08:19→17:19)
[2019-10-30] MEDS: MORPHINE 2 MG/ML 1ML VIAL (J2270) IV PRN ×2 (08:28→19:59)
[2019-10-30] MEDS: ASPIRIN ENTERIC 325 MG TAB PO SCH (09:28)
[2019-10-30] MEDS: CLOPIDOGREL 75 MG TAB PO SCH (09:28)
[2019-10-30] MEDS: SIMETHICONE 80 MG CHEW TAB PO PRN ×3 (09:30→23:58)
--- NOTE | 2019-10-30 09:47 | IPN ---
DATE OF SERVICE: 10/29/2019 SUBJECTIVE: The patient was seen and examined at the bedside today morning. She is afebrile, hemodynamically stable. She is nothing by mouth (n.p.o.) for the endoscopic retrograde cholangiopancreatography (ERCP) procedure today. Renal function is gradually worsening again. Creatinine has bumped up from 2.7 to 2.9 today. I have stopped her diuretic today morning. OBJECTIVE: Vital Signs: Temperature is 98.1 degrees Fahrenheit, blood pressure 132/67, pulse is 79, respiratory rate of 18, saturating 94% on nasal cannula at 2 liters. Intake and Output: Urine output recorded as 2.6 liters yesterday, 1.5 liters so far today since overnight. Weight in the bed scale is 95.7 kg. PHYSICAL EXAMINATION: General: The patient is awake, alert, oriented x3, laying in bed, in no apparent distress. Head and Neck Exam: Extraocular muscles intact. Pupils equally round and reactive to light. Mucous membranes are moist. Neck is supple. There is no jugular venous distention (JVD). Cardiovascular: S1, S2. Regular rate. No edema of the bilateral extremities. Respiratory: Chest is clear to auscultation bilaterally. Bilateral equal air entry. No rales or rhonchi. Abdomen: Soft. Positive bowel sounds. Nontender. No organomegaly. Musculoskeletal: No clubbing or cyanosis. Pulses are 2+. TORCH OPERATOR: No focal deficit. Power is 5/5 in all extremities. LAB REVIEW: CBC showed WBC of 16.8, hemoglobin is 9 and platelets are 464. BMP done today showed sodium 136, potassium 4.6, chloride 102, bicarb 26, BUN 36, creatinine 2.9 and it was 2.7 yesterday. Microbiology: Blood cultures are negative so far. Urine culture is negative as well. CURRENT INPATIENT MEDICATIONS: The patient's medications were all reviewed by myself. Renal function is gradually worsening. Torsemide dose was stopped today morning. ASSESSMENT/PLAN: 1. Acute kidney injury superimposed on chronic kidney disease. The patient initially improved with IV fluid hydration, however, because of congestive heart failure (CHF), she was started on diuretics and now creatinine is gradually getting worse. I have stopped the diuretic today. Continue to monitor for renal recovery. 2. Dilatation of the common bile duct (CBD). The patient is n.p.o. at this time. She is going to have ERCP done by GI today in the afternoon. 3. Persistent leukocytosis, no known etiology. It is possible that CBD stenosis might be contributing to this. All the cultures are negative. Antibiotics were stopped. 4. Hypertension. Continue hydralazine, amlodipine and metoprolol. Blood pressure is optimized. 5. Congestive heart failure. Volume status is optimal. Creatinine is trending up, torsemide has been stopped today. 6. Iron deficiency anemia. The patient continues to be on oral iron.
--- NOTE | 2019-10-30 10:01 | REP ---
ERCP exam: 35 views. History: Elevated liver function studies and white blood cell count. 18 seconds of fluoroscopy time is reported. Findings: A sequence of 35 last image hold fluoroscopically obtained spot radiographs of the right upper quadrant document endoscopic cannulation, contrast injection, catheter manipulation, and stent placement in the common bile duct. There is narrowing in the stent suggesting a distal common bile duct stricture. Electronically Signed by Riley Ortiz MD 10/30/2019 09:52 A
[2019-10-30 10:12] LABS: ALBUMIN % 37.7 % (55.8-66.1); ALPHA-1-GLOBULIN % 10.1 % (2.9-4.9); ALPHA-1-GLOBULINS 0.62 GM/DL (0.17-0.41); ALPHA-2-GLOBULINS 1.26 GM/DL (0.42-0.99); ALPHA-2-GLOBULINS % 20.7 % (7.1-11.8); BETA-1-GLOBULINS 0.43 GM/DL (0.28-0.60); BETA-1-GLOBULINS % 7.1 % (4.7-7.2); BETA-2-GLOBULINS 0.53 GM/DL (0.19-0.55); BETA-2-GLOBULINS % 8.7 % (3.2-6.5); GAMMA GLOBULIN % 15.7 % (11.1-18.8); GAMMA GLOBULINS 0.96 GM/DL (0.65-1.58); TOTAL PROTEIN 6.1 GM/DL (6.4-8.2)
--- NOTE | 2019-10-30 13:56 | IPNPDOC ---
Subjective Date Seen The patient was seen on 10/30/19. Subjective Chief Complaint/HPI Patient is feeling much better. Her abdominal pain is significantly decreased, no nausea, vomiting General: Denies: ROS Unobtainable, Chills, Night Sweats, Fatigue, Malaise, Normal Appetite, Other Symptoms Constitutional: Denies: Chills, Fever, Malaise, Night Sweats, Weakness, Fatigue, Weight Loss, Lethargy, Other Pulmonary: Denies: Dyspnea, Cough, Pleuritic Chest Pain, Other Symptoms Cardiovascular: Denies: Chest Pain, Palpitations, Orthopnea, Paroxysmal Noc. Dyspnea, Edema, Lt Headedness, Other Symptoms Gastrointestinal: Denies: Nausea, Vomiting, Abdominal Pain, Diarrhea, Constipation, Melena, Hematochezia, Other Symptoms Genitourinary: Denies: Dysuria, Frequency, Incontinence, Retention Musculoskeletal: Denies: Neck Pain, Back Pain, Shoulder Pain, Arm Pain, Hand Pain, Leg Pain, Foot Pain, Joint Pain, Muscle Pain, Spasms, Other Symptoms Neurological: Denies: Weakness, Numbness, Incoordination, Change in speech, Confusion, Seizures, Other Symptoms Objective Physical Examination General Exam: Positive: Alert, Cooperative Eye Exam: Positive: PERRLA, Conjunctiva & lids normal ENT Exam: Positive: Atraumatic Neck Exam: Positive: Supple Chest Exam: Positive: Clear to auscultation, Normal air movement Heart Exam: Positive: Rate Normal, Normal S1, Normal S2 Abdomen Exam: Positive: Normal bowel sounds, Soft Skin Exam: Positive: Nl turgor and temperature Assessment /Plan Problems (1) BRIGITTE (acute kidney injury) Status: Acute Problem Text: Acute renal failure likely 2/2 to polycystic kidney disease (PCKD) and medication (toradol). Cr worsened at 2.9, nephrology following. C/w torsemide C/w renal diet, avoid nephrotoxic medications (i.e. NSAIDs). Nephrology follow-up appreciated (2) Leukocytosis, unspecified Status: Acute Problem Text: None specific Leukocytosis r/o abdominal cause (i.e. pancreatic mass causing pancreatic duct dilation or something in CHD causing dilation, ? leukemoid rx?). UA was mild but UCx not sent. Repeat UA sent. Nephrology stopped Zosyn yesterday to see if WBC keeps going up. I was called by Dr. Trevizo today to restart IV antibiotics secondary to leukocytosis F/u UA, daily CBC, repeat blood cultures. (3) Pancreatic duct dilated Status: Acute Problem Text: Pancreatic duct dilation and common hepatic did dilate patient Status post-ERCP with stent placement pt is clinically feeling much better. Abdominal pain has resolved Discussed with Dr. Trevizo, he wants to continue IV antibiotics for a few days, will restart IV, but antibiotics, Zosyn 2.25 mg IV every 8 hours CBC, CMP in a.m. Further instructions as per GI (4) HTN (hypertension) Status: Chronic Problem Text: Continue home meds (5) UTI (urinary tract infection) Status: Acute Problem Text: UTI. Repeat UA was done, + but appeared better. UCx NG. Prabhjot is already on Zosyn for abdominal pathology Plan/VTE VTE Prophylaxis Ordered?: Yes VS, I&O, 24H, Fishbone Vital Signs/I&O Vital Signs Date Time Temp Pulse Resp B/P (MAP) Pulse Ox O2 Delivery O2 Flow Rate FiO2 10/30/19 12:48 18 10/30/19 08:19 79 130/70 10/29/19 22:00 98.8 95 Nasal Cannula 2.0 I&O- Last 24 Hours up to 6 AM 10/30/19 06:00 Intake Total 1380 ml Output Total 940 ml Balance 440 ml Laboratory Data 24H LABS Laboratory Tests 2 10/29/19 17:58: Bedside Glucose (Misc Panel) 160H 10/29/19 20:52: Bedside Glucose (Misc Panel) 251H 10/30/19 05:46: Immature Granulocyte % (Auto) 1.3, Neutrophils (%) (Auto) 90.8H, Lymphocytes (%) (Auto) 3.2L, Monocytes (%) (Auto) 4.6, Eosinophils (%) (Auto) 0.0, Basophils (%) (Auto) 0.1, Neutrophils # (Auto) 18.4H, Lymphocytes # (Auto) 0.6L, Monocytes # (Auto) 0.9H, Eosinophils # (Auto) 0.0, Basophils # (Auto) 0.0, Nucleated Red Blood Cells % (auto) 0.0, Anion Gap 9, Glomerular Filtration Rate 16.0L, Calcium Level 8.3L, Total Bilirubin 0.2, Aspartate Amino Transf (AST/SGOT) 30, Alanine Aminotransferase (ALT/SGPT) 39, Alkaline Phosphatase 202H, Total Protein 6.1L, Total Protein (PEP) 6.1L, Albumin 1.9L, Albumin (%) 37.7L, Yvtfp-7-Csvibpcsh (%) 10.1H, Cpllu-6-Zvshyyqvy (%) 20.7H, Gamma Globulins (%) 15.7, Ewmci-1-Sovuqjyui 0.62H, Mwhsn-2-Fsmalwjeg 1.26H, Gamma Globulins 0.96, Protein Electrophoresis Interpret SEE COMMENT, Albumin (PEP) 2.30L, Albumin/Globulin Ratio 0.5L, Gdmk-4-Brqckpas 0.43, Obpn-6-Dleuafpa (%) 7.1, Vzcr-4-Whdkcvzo 0.53, Sofa-4-Dvzfghtt (%) 8.7H, Serum PEP Pathologist Review REV'D BY Nydia OBRIEN, Complement C3 132, Complement C4 29 10/30/19 11:27: Bedside Glucose (Misc Panel) 257H CBC/BMP Laboratory Tests 10/30/19 05:46 Microbiology Microbiology 10/28/19 Urine Culture - Final, Complete 10/27/19 Blood Culture - Preliminary, Resulted No Growth after 48 hours. All Specime... 10/27/19 Blood Culture - Preliminary, Resulted No Growth after 48 hours. All Specime... 10/22/19 Urine Culture - Final, Complete 10/22/19 Respiratory Virus Panel (PCR) (JUAN) - Final, Complete 10/22/19 Blood Culture - Final, Complete NO GROWTH AFTER 5 DAYS 10/22/19 Blood Culture - Final, Complete NO GROWTH AFTER 5 DAYS DINO AVILA MD Oct 30, 2019 13:56
[2019-10-30 14:00] VITALS: BP 138/72
[2019-10-30] MEDS: PIPERACILLIN/TAZOBACTAM SOD 2.25 GM in D5W MINI-BAG PLUS 50 ML IV SCH ×2 (14:47→21:33)
[2019-10-30] MEDS ORDERED: MORPHINE 2 MG/ML 1ML VIAL (J2270) IV STA (15:48)
[2019-10-30 22:00] VITALS: BP 164/85
[2019-10-30] MEDS ORDERED: MORPHINE 2 MG/ML 1ML VIAL (J2270) IV ONE (22:45)
[2019-10-31] VITALS (12 sets, daily range): BP systolic 145–161; BP diastolic 70–81; O2SAT 86–93
[2019-10-31] MEDS: MORPHINE 2 MG/ML 1ML VIAL (J2270) IV PRN ×3 (01:47→15:45)
[2019-10-31] MEDS: PIPERACILLIN/TAZOBACTAM SOD 2.25 GM in D5W MINI-BAG PLUS 50 ML IV SCH ×3 (05:33→22:14)
[2019-10-31 06:19] LABS: BASO % 0.1 % (0.0-1.0); EOS # 0.1 10^3/uL (0.0-0.5); EOS % 0.6 % (0.0-3.0); HEMATOCRIT 29.1 % (36.0-47.0); HEMOGLOBIN 9.4 g/dl (12.0-15.5); LYMPH # 1.2 10^3/uL (1.5-5.0); LYMPH % 5.9 % (24.0-44.0); MEAN CORPUSCULAR HEMOGLOBIN 30.2 pg (27.0-33.0); MEAN CORPUSCULAR HGB CONC 32.3 g/dl (32.0-36.5); MEAN CORPUSCULAR VOLUME 93.6 fl (80.0-96.0); MONO # 1.1 10^3/uL (0.0-0.8); MONO % 5.5 % (0.0-5.0); NEUTROPHILS # 17.5 10^3/uL (1.5-8.5); PLATELET COUNT, AUTOMATED 505 10^3/uL (150-450); RED BLOOD COUNT 3.11 10^6/uL (4.00-5.40); WHITE BLOOD COUNT 20.1 10^3/uL (4.0-10.0)
[2019-10-31] MEDS: oxyCODONE 5MG TAB PO PRN (06:26)
[2019-10-31 06:44] LABS: ALBUMIN 2.1 GM/DL (3.2-5.2); BILIRUBIN,TOTAL 0.2 MG/DL (0.2-1.0); CALCIUM LEVEL 8.6 MG/DL (8.8-10.2); CREATININE FOR GFR 3.11 MG/DL (0.55-1.30); GLOMERULAR FILTRATION RATE 16.1 (>45); POTASSIUM SERUM 4.4 MEQ/L (3.5-5.1); TOTAL PROTEIN 7.3 GM/DL (6.4-8.2)
[2019-10-31] MEDS: LEVEMIR (INSULIN DETEMIR) 1 UNITS/0.01ML SC SCH (08:47)
[2019-10-31] MEDS: HumaLOG INSULIN (NovoLOG) PER UNIT SC SCH ×4 (08:47→21:00)
[2019-10-31] MEDS: METOPROLOL TART 25 MG TABLET PO SCH (08:48)
[2019-10-31] MEDS: FERROUS GLUCONATE 324 MG TAB PO SCH ×2 (08:48→20:14)
[2019-10-31] MEDS: ASPIRIN ENTERIC 325 MG TAB PO SCH (08:48)
[2019-10-31] MEDS: CLOPIDOGREL 75 MG TAB PO SCH (08:48)
[2019-10-31] MEDS: PANTOPRAZOLE 40MG TAB (PROTONIX) PO SCH ×2 (08:48→20:14)
[2019-10-31] MEDS: HEPARIN SOD (PORCINE) 5000UNITS/ML VIAL (J1644 PER 1000UNITS) SC SCH ×2 (08:48→20:15)
[2019-10-31] MEDS: LACTOBACILLUS ACIDOPHILUS CAP (BACID) PO SCH ×2 (08:48→16:52)
[2019-10-31] MEDS: amLODIPine 10 MG TAB PO SCH (08:49)
--- NOTE | 2019-10-31 09:16 | IPN ---
DATE OF SERVICE: 10/30/2019 SUBJECTIVE: The patient was seen and examined at the bedside today morning. She got ERCP done yesterday. 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 She got a stent placed. She reports significant improvement in the abdominal pain. She still has persistent leukocytosis. Renal function is slightly worse today as compared with yesterday. Creatinine has bumped up to 3.1 today. Despite that, the patient is nonoliguric at this time. Her diuretics were stopped yesterday. OBJECTIVE: Vital Signs: Temperature is 98.6 degrees Fahrenheit, blood pressure is 138/72, pulse is 83, respiratory rate of 19, saturating 95% on nasal cannula at 1 liter. Intake and Output: Urine output recorded as 1.8 liters yesterday, 450 mL so far today since overnight. Weight in the bed scale is not available. PHYSICAL EXAMINATION: General: The patient is awake, alert, oriented x3, laying in bed, in no apparent distress. Head and Neck Exam: Extraocular muscles intact. Pupils equally round and reactive to light. Mucous membranes are moist. Neck is supple. There is mildly elevated jugular venous distention (JVD). Cardiovascular: S1, S2. Regular rate. No edema of the bilateral lower extremities. Respiratory: Mildly decreased breath sounds at the bases, otherwise no active rales or rhonchi. Abdomen: Soft, obese, positive bowel sounds. Mildly tender to deep palpation in the epigastric region. Otherwise no organomegaly was noted. Genitourinary: Bladder is not palpable. Musculoskeletal: No clubbing or cyanosis. Pulses are 2+. 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 Power is 5/5 in all extremities. LAB REVIEW: CBC showed a WBC of 20.2, hemoglobin is 8.4 and platelets of 475. BMP showed sodium 136, potassium 5.2, chloride 101, bicarb 26, BUN 41, creatinine is 3.1 and was 2.9 yesterday. 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 C3-C4 levels are normal. The rest of the autoimmune serology is pending. Microbiology: Cultures are negative so far. IMAGING: ERCP imaging showed successful stent placement in the CBD. There was narrowing in the stent suggesting a distal CBD stricture. CURRENT INPATIENT MEDICATIONS: The patient's medications were all reviewed by myself. She has been started on Zosyn 2.25 grams IV every 8 hours. Torsemide was stopped yesterday. No other change in the medications today as compared with yesterday. ASSESSMENT/PLAN: 1. Acute kidney injury. The patient's diuretics were stopped yesterday. Creatinine is still trending up, it has bumped up to 3.1. Continue to monitor for now. Volume status is optimal. No need of IV fluid hydration at this time. 2. Leukocytosis and stricture in the CBD. The patient got the ERCP done yesterday. She has been restarted on IV Zosyn. All the cultures are negative so far. 3. CBD stricture and abdominal pain. The patient is status post ERCP. Brushing biopsy has been sent. Rest of the management is as per GI recommendations. 4. Iron-deficiency anemia. The patient is currently on oral iron. IV iron was not given because of her persistent leukocytosis. 5. Hypertension. Blood pressure is optimal. Continue current dose of amlodipine 10 mg daily, hydralazine 20 mg by mouth every 8 hours and metoprolol 25 mg by mouth daily. 6. Diastolic congestive heart failure. LV ejection fraction is 50- 55% and she has grade 2 diastolic dysfunction. Diuretic was held yesterday because of worsening renal function. She will be evaluated on a daily basis for need of diuretics.
[2019-10-31] MEDS ORDERED: FUROSEMIDE 40MG/4ML VIAL (J1940) IV ONE ×2 (11:00→19:30)
[2019-10-31] MEDS ORDERED: MAALOX 30 ML SUSP *UDC PO ONE (11:00)
--- NOTE | 2019-10-31 11:18 | IPNPDOC ---
Subjective Date Seen The patient was seen on 10/31/19. Subjective Chief Complaint/HPI Patient is still complaining of some abdominal pain and has been requesting morphine very often. Blood patient also has a good appetite and food doesn't seem like to be causing any problems with her abdominal pain, and she complained to me severe abdominal pain while she was eating her breakfast and he can. She continued to eat her breakfast during the whole episode. No nausea, vomiting General: Denies: ROS Unobtainable, Chills, Night Sweats, Fatigue, Malaise, Normal Appetite, Other Symptoms Constitutional: Denies: Chills, Fever, Malaise, Night Sweats, Weakness, Fatigue, Weight Loss, Lethargy, Other Skin: Denies: Rash, Lesions, Jaundice, Bruising, Itching, Dry, Breakdown, Nail Changes, Other Pulmonary: Denies: Dyspnea, Cough, Pleuritic Chest Pain, Other Symptoms Cardiovascular: Denies: Chest Pain, Palpitations, Orthopnea, Paroxysmal Noc. Dyspnea, Edema, Lt Headedness, Other Symptoms Gastrointestinal: Reports: Abdominal Pain Genitourinary: Denies: Dysuria, Frequency, Incontinence, Hematuria, Retention, Other Symptoms Hematologic: Denies: Bruising, Bleeding Excessively, Petecchia, Purpura, Enlarged Lymph Nodes, Other Hematologic Endocrine: Denies: Polydipsia, Polyphagia, Polyuria, Heat Intolerance, Cold Intolerance, Other Endocrine Sx Musculoskeletal: Denies: Neck Pain, Back Pain, Shoulder Pain, Arm Pain, Hand Pain, Leg Pain, Foot Pain, Joint Pain, Muscle Pain, Spasms, Other Symptoms Neurological: Denies: Weakness, Numbness, Incoordination, Change in speech, Confusion, Seizures, Other Symptoms Objective Physical Examination General Exam: Positive: Alert, Cooperative Eye Exam: Positive: PERRLA, Conjunctiva & lids normal ENT Exam: Positive: Atraumatic Neck Exam: Positive: Supple Chest Exam: Positive: Clear to auscultation, Normal air movement Heart Exam: Positive: Rate Normal, Normal S1, Normal S2 Abdomen Exam: Positive: Normal bowel sounds, Soft Skin Exam: Positive: Nl turgor and temperature Assessment /Plan Problems (1) BRIGITTE (acute kidney injury) Status: Acute Problem Text: Acute renal failure likely 2/2 to polycystic kidney disease (PCKD) and medication (toradol). Cr worsened at 2.9, nephrology following. C/w torsemide C/w renal diet, avoid nephrotoxic medications (i.e. NSAIDs). Nephrology follow-up appreciated (2) Leukocytosis, unspecified Status: Acute Problem Text: None specific Leukocytosis r/o abdominal cause (i.e. pancreatic mass causing pancreatic duct dilation or something in CHD causing dilation, ? leukemoid rx?). UA was mild but UCx not sent. Repeat UA sent. Nephrology stopped Zosyn yesterday to see if WBC keeps going up. I was called by Dr. Trevizo today to restart IV antibiotics secondary to leukocytosis Blood cultures, urine cultures are essentially negative (3) Pancreatic duct dilated Status: Acute Problem Text: Pancreatic duct dilation and common hepatic did dilate patient Status post-ERCP with stent placement pt is clinically feeling much better. Abdominal pain has resolved Discussed with Dr. Trevizo, he wants to continue IV antibiotics for a few days, will restart IV, but antibiotics, Zosyn 2.25 mg IV every 8 hours WBC count is still 20.1, but patient is afebrile and electrolytes are within normal range Restart all home meds including pain management Further instructions as per GI (4) HTN (hypertension) Status: Chronic Problem Text: Continue home meds (5) UTI (urinary tract infection) Status: Acute Problem Text: UTI. Repeat UA was done, + but appeared better. UCx NG.pt is already on Zosyn for abdominal pathology Plan/VTE VTE Prophylaxis Ordered?: Yes VS, I&O, 24H, Fishbone Vital Signs/I&O Vital Signs Date Time Temp Pulse Resp B/P (MAP) Pulse Ox O2 Delivery O2 Flow Rate FiO2 10/31/19 10:44 20 10/31/19 09:00 1.0 10/31/19 08:48 85 171/85 10/31/19 06:26 93 Nasal Cannula 10/31/19 06:00 97.5 I&O- Last 24 Hours up to 6 AM 10/31/19 06:00 Intake Total 1730 ml Output Total 1450 ml Balance 280 ml Laboratory Data 24H LABS Laboratory Tests 2 10/30/19 11:27: Bedside Glucose (Misc Panel) 257H 10/30/19 16:19: Bedside Glucose (Misc Panel) 151H 10/30/19 20:56: Bedside Glucose (Misc Panel) 178H 10/31/19 06:05: Immature Granulocyte % (Auto) 0.9, Neutrophils (%) (Auto) 87.0H, Lymphocytes (%) (Auto) 5.9L, Monocytes (%) (Auto) 5.5H, Eosinophils (%) (Auto) 0.6, Basophils (%) (Auto) 0.1, Neutrophils # (Auto) 17.5H, Lymphocytes # (Auto) 1.2L, Monocytes # (Auto) 1.1H, Eosinophils # (Auto) 0.1, Basophils # (Auto) 0.0, Nucleated Red Blood Cells % (auto) 0.0, Anion Gap 7L, Glomerular Filtration Rate 16.1L, Calcium Level 8.6L, Total Bilirubin 0.2, Aspartate Amino Transf (AST/SGOT) 15, Alanine Aminotransferase (ALT/SGPT) 32, Alkaline Phosphatase 166H, Total Protein 7.3, Albumin 2.1L, Albumin/Globulin Ratio 0.4L CBC/BMP Laboratory Tests 10/31/19 06:05 Microbiology Microbiology 10/28/19 Urine Culture - Final, Complete 10/27/19 Blood Culture - Preliminary, Resulted No Growth after 72 hours. All specime... 10/27/19 Blood Culture - Preliminary, Resulted No Growth after 72 hours. All specime... 10/22/19 Urine Culture - Final, Complete 10/22/19 Respiratory Virus Panel (PCR) ([facility]UAN) - Final, Complete 10/22/19 Blood Culture - Final, Complete NO GROWTH AFTER 5 DAYS 10/22/19 Blood Culture - Final, Complete NO GROWTH AFTER 5 DAYS DINO AVILA MD Oct 31, 2019 11:18
[2019-10-31] MEDS: PERCOCET 5MG/325MG TAB PO PRN ×2 (13:09→20:16)
[2019-10-31] MEDS: SITagliptin 50 MG TAB (JANUVIA) PO SCH (14:41)
[2019-10-31 17:13] LABS: ANTINUCLEAR ANTIBODIES DIRECT Negative (Negative); FREE KAPPA LIGHT CHAINS SERUM 118.4 mg/L (3.3-19.4); FREE LAMBDA LIGHT CHAINS SERUM 92.8 mg/L (5.7-26.3); KAPPA/LAMBDA RATIO SERUM 1.28 (0.26-1.65)
[2019-11-01 00:34] VITALS: O2SAT 94
[2019-11-01] MEDS: PERCOCET 5MG/325MG TAB PO PRN ×5 (01:10→21:47)
[2019-11-01] MEDS: PIPERACILLIN/TAZOBACTAM SOD 2.25 GM in D5W MINI-BAG PLUS 50 ML IV SCH ×3 (05:18→21:47)
[2019-11-01 06:00] VITALS: BP 126/61
[2019-11-01 06:47] LABS: BASO % 0.2 % (0.0-1.0); EOS # 0.1 10^3/uL (0.0-0.5); EOS % 0.3 % (0.0-3.0); HEMATOCRIT 28.6 % (36.0-47.0); HEMOGLOBIN 9.1 g/dl (12.0-15.5); LYMPH % 4.8 % (24.0-44.0); MEAN CORPUSCULAR HEMOGLOBIN 29.7 pg (27.0-33.0); MEAN CORPUSCULAR HGB CONC 31.8 g/dl (32.0-36.5); MEAN CORPUSCULAR VOLUME 93.5 fl (80.0-96.0); MONO # 1.3 10^3/uL (0.0-0.8); MONO % 5.8 % (0.0-5.0); NEUTROPHILS % 88.1 % (36.0-66.0); PLATELET COUNT, AUTOMATED 515 10^3/uL (150-450); RED BLOOD COUNT 3.06 10^6/uL (4.00-5.40); WHITE BLOOD COUNT 21.6 10^3/uL (4.0-10.0)
[2019-11-01 07:22] LABS: ALBUMIN 1.8 GM/DL (3.2-5.2); BILIRUBIN,TOTAL 0.4 MG/DL (0.2-1.0); CREATININE FOR GFR 3.12 MG/DL (0.55-1.30); POTASSIUM SERUM 4.3 MEQ/L (3.5-5.1)
[2019-11-01] MEDS: HEPARIN SOD (PORCINE) 5000UNITS/ML VIAL (J1644 PER 1000UNITS) SC SCH ×2 (08:09→20:01)
[2019-11-01] MEDS: CLOPIDOGREL 75 MG TAB PO SCH (08:09)
[2019-11-01] MEDS: SIMETHICONE 80 MG CHEW TAB PO PRN (08:09)
[2019-11-01] MEDS: ASPIRIN ENTERIC 325 MG TAB PO SCH (08:09)
[2019-11-01] MEDS: LACTOBACILLUS ACIDOPHILUS CAP (BACID) PO SCH ×2 (08:09→17:58)
[2019-11-01] MEDS: PANTOPRAZOLE 40MG TAB (PROTONIX) PO SCH ×2 (08:09→20:01)
[2019-11-01] MEDS: FERROUS GLUCONATE 324 MG TAB PO SCH ×2 (08:09→20:01)
[2019-11-01] MEDS: SITagliptin 50 MG TAB (JANUVIA) PO SCH (08:09)
[2019-11-01] MEDS: LEVEMIR (INSULIN DETEMIR) 1 UNITS/0.01ML SC SCH (08:10)
[2019-11-01] MEDS: HumaLOG INSULIN (NovoLOG) PER UNIT SC SCH ×4 (08:10→21:00)
[2019-11-01] MEDS: MORPHINE 2 MG/ML 1ML VIAL (J2270) IV PRN ×2 (08:11→18:35)
[2019-11-01] MEDS: amLODIPine 10 MG TAB PO SCH (08:12)
[2019-11-01] MEDS: METOPROLOL TART 25 MG TABLET PO SCH (08:12)
[2019-11-01] MEDS ORDERED: FUROSEMIDE 40 MG TAB PO SCH (09:00)
--- NOTE | 2019-11-01 09:48 | IPN ---
DATE OF SERVICE: 10/31/2019 SUBJECTIVE: The patient was seen and examined at the bedside. She was actually sitting in the sofa. She still complains of pain in the epigastrium and right upper quadrant which is worse today as compared with yesterday. She still has persistent leukocytosis even though she was started on antibiotics yesterday. No significant improvement in the renal function. Creatinine is at 3.1 today. The patient was wearing nasal cannula and she reports mild shortness of breath. OBJECTIVE: Vital Signs: Temperature is 98.3 degrees Fahrenheit, blood pressure 161/76, pulse is 79, respiratory rate of 17, saturating 92% on nasal cannula. Intake and Output: Urine output recorded as 1 liter yesterday and 400 mL in the morning when I saw him. PHYSICAL EXAMINATION: General: The patient is awake, alert, oriented x3, sitting up in the sofa, in mild painful distress. Head and Neck Exam: Extraocular muscles intact. Pupils equally round and reactive to light. Neck is supple. She has a moderate elevation of jugular venous distention (JVD). Cardiovascular: S1, S2. Regular rate. Trace edema of the bilateral lower extremities. Respiratory: Decreased breath sounds bilaterally at the bases with inspiratory crackles at the mid lung zones. Abdomen: Soft. Mildly tender to deep palpation in the right upper quadrant. Musculoskeletal: No clubbing or cyanosis. Pulses are 2+. 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 Power is 5/5 in all extremities. LAB REVIEW: CBC showed a WBC of 20.1, hemoglobin 9.4, platelets of 505. BMP done today morning showed a sodium of 134, potassium 4.4, chloride 100, bicarb 27, BUN 42, creatinine is 3.1, calcium 8.6. Immunology: Free kappa and lambda light chains are high; however, kappa lambda ratio is normal. Microbiology: All the cultures are negative. CURRENT INPATIENT MEDICATIONS: The patient's medications were all reviewed by myself. I gave her a dose of Mylanta today for epigastric pain. She continues to be on IV Zosyn that was started yesterday. I gave her a dose of Lasix 40 mg IV x1 dose and she has been started on Lasix 40 mg by mouth daily starting tomorrow morning. She has been restarted on Januvia 50 mg by mouth daily. ASSESSMENT/PLAN: 1. Acute kidney injury. Patient's renal function is fluctuating at chronic kidney disease (CKD) IV nor. Renal function was slightly improved during this hospitalization; however, it got worse. The patient is showing clinical signs of mild volume overload. She was given a dose of Lasix today. Continue to monitor for now. There is no urgent need of hemodialysis. However, the patient might end up needing dialysis very soon in the near future. She has polycystic kidney on the imaging. 2. Persistent leukocytosis. The patient was started on Zosyn yesterday. All the cultures are negative so far. 3. Common bile duct (CBD) stricture, status post CBD stenting. The patient still complains of pain in the epigastrium. Optimization of pain medications is as per primary team. Rest of the management is as per GI recommendations. 4. Iron-deficiency anemia. Continue by mouth iron. Hemoglobin level is stable. 5. Hypertension. Continue current dose of metoprolol, hydralazine and amlodipine. 6. Chronic diastolic congestive heart failure. The patient was given a dose of Lasix 40 mg IV today. She has been restarted on oral Lasix. She will be evaluated tomorrow morning for any further need of IV diuretics. [facility]
[2019-11-01 10:11] VITALS: O2SAT 93
--- NOTE | 2019-11-01 10:15 | REP ---
RIGHT UPPER QUADRANT SONOGRAPHY: HISTORY: Leukocytosis. Biliary stent placement. FINDINGS: The gallbladder is surgically absent. Scanning through the right upper quadrant demonstrates evidence of pneumobilia related to stent placement. The stent itself could not be visualized. Common bile duct appears dilated, 2.1 cm in diameter. Coarse liver texture is seen. No focal liver mass lesion is observed. The pancreas is obscured by abdominal gas. The right kidney measures 13.1 x 5.5 x 6.6 cm. Renal cortical echogenicity pattern is increased consistent with chronic medical renal disease. There are multiple right renal cysts. The largest simple cyst measures 3.9 cm in diameter. There is a complex hypoechoic area 3.5 cm in greatest diameter in the right mid kidney. IMPRESSION: Pneumobilia. Common bile duct stent not well seen. Common bile duct appears dilated. Coarse liver texture. Complex cyst right kidney. Electronically Signed by Riley Ortiz MD 11/01/2019 10:35 A
--- NOTE | 2019-11-01 10:48 | IPNPDOC ---
Subjective Date Seen The patient was seen on 11/01/19. Subjective Chief Complaint/HPI Patient still has pain on and off, it's all over the abdomen, improved with pain meds General: Denies: ROS Unobtainable, Chills, Night Sweats, Fatigue, Malaise, Normal Appetite, Other Symptoms Constitutional: Denies: Chills, Fever, Malaise, Night Sweats, Weakness, Fatigue, Weight Loss, Lethargy, Other Eyes: Denies: Pain, Vision change, Conjunctivae inflammation, Eyelid inflamm ation, Redness, Other ENT: Denies: Head Aches, Ear Pain, Dysphagia, Sinus Congestion, Post Nasal Drip, Sore Throat, Epistaxis, Other Symptoms Skin: Denies: Rash, Lesions, Jaundice, Bruising, Itching, Dry, Breakdown, Nail Changes, Other Pulmonary: Denies: Dyspnea, Cough, Pleuritic Chest Pain, Other Symptoms Cardiovascular: Denies: Chest Pain, Palpitations, Orthopnea, Paroxysmal Noc. Dyspnea, Edema, Lt Headedness, Other Symptoms Gastrointestinal: Reports: Abdominal Pain Genitourinary: Denies: Dysuria, Frequency, Incontinence, Hematuria, Retention, Other Symptoms Neurological: Denies: Weakness, Numbness, Incoordination, Change in speech, Con fusion, Seizures, Other Symptoms Psych: Denies: Mood Normal, Anxiety, Depression, Memory Issues, Thoughts of Self Harm, Anger, Thoughts of Harming Other, Other Psych Objective Physical Examination General Exam: Positive: Alert, Cooperative Eye Exam: Positive: PERRLA, Conjunctiva & lids normal ENT Exam: Positive: Atraumatic Neck Exam: Positive: Supple Chest Exam: Positive: Clear to auscultation, Normal air movement Heart Exam: Positive: Rate Normal, Normal S1, Normal S2 Abdomen Exam: Positive: Normal bowel sounds, Soft, Tenderness (generalized tenderness all over the abdomen on direct palpation. No rebound tenderness, no peritoneal signs) Skin Exam: Positive: Nl turgor and temperature Assessment /Plan Problems (1) Abdominal pain Status: Acute Problem Text: Still complaining of on and off abdominal pain which is gas-like in nature, nonradiating present all over the abdomen, relieved with pain meds. Does not get exacerbated by intake of food or change in position. Discussed with Dr. Trevizo this morning, we will repeat liver sonogram to confirm that biliary stent is in place Continue pain management as per orders her CBC is still 21.6, unable to localize the source of infection, Dr. Thomas has been called to help with the management If there is no infectious cause found, then most likely will worry about any heme/onc etiology Continue IV Zosyn, further recommendations as per infectious disease (2) BRIGITTE (acute kidney injury) Status: Acute Problem Text: Acute renal failure likely 2/2 to polycystic kidney disease (PCKD) and medication (toradol). Cr worsened at 2.9, nephrology following. C/w torsemide C/w renal diet, avoid nephrotoxic medications (i.e. NSAIDs). Discussed with Dr. Gaona today, Pts' creatinine is stable. Most likely she will require hemodialysis and near future Continue present meds (3) Leukocytosis, unspecified Status: Acute Problem Text: None specific Leukocytosis r/o abdominal cause (i.e. pancreatic mass causing pancreatic duct dilation or something in CHD causing dilation, ? leukemoid rx?). UA was mild but UCx not sent. Repeat UA sent. Nephrology stopped Zosyn yesterday to see if WBC keeps going up. Known etiology, Dr Thomas called for infectious disease consult if no source is detected, then we'll possibly consider hematology/oncology pathology (4) Pancreatic duct dilated Status: Acute Problem Text: Pancreatic duct dilation and common hepatic did dilate patient Status post-ERCP with stent placement pt is clinically feeling much better. Abdominal pain has resolved Discussed with Dr. Trevizo, he wants to continue IV antibiotics for a few days, will restart IV, but antibiotics, Zosyn 2.25 mg IV every 8 hours WBC count is still 20.1, but patient is afebrile and electrolytes are within normal range Restart all home meds including pain management Further instructions as per GI (5) HTN (hypertension) Status: Chronic Problem Text: Continue home meds (6) UTI (urinary tract infection) Status: Acute Problem Text: UTI. Repeat UA was done, + but appeared better. UCx NG.pt is already on Zosyn for abdominal pathology Plan/VTE VTE Prophylaxis Ordered?: Yes VS, I&O, 24H, Fishbone Vital Signs/I&O Vital Signs Date Time Temp Pulse Resp B/P (MAP) Pulse Ox O2 Delivery O2 Flow Rate FiO2 11/01/19 10:11 93 0.0 11/01/19 08:21 20 11/01/19 08:12 87 136/74 11/01/19 06:00 98.0 Nasal Cannula I&O- Last 24 Hours up to 6 AM 11/01/19 06:00 Intake Total 170 ml Output Total 2400 ml Balance -2230 ml Laboratory Data 24H LABS Laboratory Tests 2 10/31/19 11:22: Bedside Glucose (Misc Panel) 138H 10/31/19 16:31: Bedside Glucose (Misc Panel) 136H 10/31/19 20:37: Bedside Glucose (Misc Panel) 136H 11/01/19 06:09: Immature Granulocyte % (Auto) 0.8, Neutrophils (%) (Auto) 88.1H, Lymphocytes (%) (Auto) 4.8L, Monocytes (%) (Auto) 5.8H, Eosinophils (%) (Auto) 0.3, Basophils (%) (Auto) 0.2, Neutrophils # (Auto) 19.0H, Lymphocytes # (Auto) 1.0L, Monocytes # (Auto) 1.3H, Eosinophils # (Auto) 0.1, Basophils # (Auto) 0.0, Nucleated Red Blood Cells % (auto) 0.0, Anion Gap 8, Glomerular Filtration Rate 16.0L, Calcium Level 8.0L, Total Bilirubin 0.4#, Aspartate Amino Transf (AST/SGOT) 17, Alanine Aminotransferase (ALT/SGPT) 23, Alkaline Phosphatase 166H, Total Protein 6.0L, Albumin 1.8L, Albumin/Globulin Ratio 0.4L CBC/BMP Laboratory Tests 11/01/19 06:09 Microbiology Microbiology 10/28/19 Urine Culture - Final, Complete 10/27/19 Blood Culture - Preliminary, Resulted No Growth after 72 hours. All specime... 10/27/19 Blood Culture - Preliminary, Resulted No Growth after 72 hours. All specime... 10/22/19 Urine Culture - Final, Complete 10/22/19 Respiratory Virus Panel (PCR) ([facility]UAN) - Final, Complete 10/22/19 Blood Culture - Final, Complete NO GROWTH AFTER 5 DAYS 10/22/19 Blood Culture - Final, Complete NO GROWTH AFTER 5 DAYS DINO AVILA MD Nov 01, 2019 10:48
[2019-11-01 14:00] VITALS: BP 148/76
[2019-11-01 18:04] LABS: C REACTIVE PROTEIN QUANTITATIV 16.4 MG/DL (0.00-0.30)
[2019-11-01] MEDS: D5W/0.9% SODIUM CHLORIDE 1,000 ML IV SCH (20:01)
[2019-11-01] MEDS: MIRALAX *UNIT DOSE* 17GM PACKET PO SCH (21:46)
[2019-11-01 22:00] VITALS: BP 165/77
--- NOTE | 2019-11-01 23:13 | IPN ---
DATE: 11/01/2019 SUBJECTIVE: The patient was seen and examined at the bedside today morning. She was laying in the bed. She has persistent leukocytosis despite being on IV Zosyn. All the cultures are negative so far. She reports persistent pain in the epigastrium since the postop day #1 after endoscopic retrograde cholangiopancreatography (ERCP). She reports decreased appetite. There is no improvement in the renal function; creatinine has been 3.1 for the last 3 days. She was given IV Lasix yesterday. She denies any shortness of breath. OBJECTIVE: Vital signs: Temperature is 98.7 degrees Fahrenheit, blood pressure 148/76, pulse is 77, respiratory rate of 17, saturating 91% on nasal cannula. Intake and output: Urine output recorded is 2.1 liters yesterday, 1.9 liters so far today since overnight. Weight in the bed scale is 97.5 kg. PHYSICAL EXAMINATION: General: The patient is awake, alert, oriented times three, laying in bed, mild painful distress. Head and neck exam: Extraocular muscles intact. Pupils equally round and reactive to light. Mucous membranes are moist. Neck is supple. No jugular venous distention (JVD). Cardiovascular: S1, S2, regular rate. No edema of the bilateral lower extremities. Respiratory: Mildly decreased breath sounds at the bases, otherwise no active rales or rhonchi. Abdomen: Soft, moderately tender to deep palpation in the epigastrium and right upper quadrant. Genitourinary: Bladder is nonpalpable. Musculoskeletal: No clubbing or cyanosis. Pulses are 2+. 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 Power is 5/5 in all extremities. LAB REVIEW: CBC showed a WBC of 21.6, hemoglobin 9.1, platelets are 515. BMP showed sodium 132, potassium 4.3, chloride 98, bicarbonate 26, BUN 39, creatinine is 3.1, alkaline phosphatase is 166, C-reactive protein is 16.4, lipase is 7293. Microbiology: Urine cultures are negative so far. IMAGING: Ultrasound of the liver was done, which showed pneumobilia. Common bile duct (CBD) stent was not well seen. CBD appears dilated. Coarse liver texture. Complex cyst right kidney. CURRENT INPATIENT MEDICATIONS: The patient continues to be on IV Zosyn. She was given one dose of Lasix yesterday. She is also on a daily Lasix dose, which I am stopping at this time. I am starting the patient on D5 normal saline at 100 mL an hour. ASSESSMENT/PLAN: 1. Acute pancreatitis. The patient has elevated lipase. She has a pain in the epigastrium. She got ERCP done 3 days ago. She is currently on empiric IV antibiotics. Imaging of the abdomen could not localize the CBD stent. GI has been informed, the rest of the management is as per GI recommendations. 2. CBD stricture, status post ERCP and stenting. The patient still has pneumobilia on the imaging, and she has acute pancreatitis. Further management and recommendations as per GI. 3. Acute kidney injury superimposed on chronic kidney disease, stage IV. The patient's creatinine has been stable at 3.1 for the last 3 days. Given acute pancreatitis and abdominal pain and decreased intake, I have stopped the diuretic and started the patient on D5 normal saline at 100 mL an hour. 4. Persistent leukocytosis. All the cultures are negative so far. It is possible that leukocytosis might be secondary to acute pancreatitis. Primary team is also planning to call infectious disease to help us to localize the source of infection. Otherwise the patient is afebrile. 5. Hypertension. Blood pressure is controlled with metoprolol, hydralazine and amlodipine. 6. Chronic diastolic congestive heart failure. The patient was getting oral diuretic, which has been stopped because of acute pancreatitis and the patient is getting gentle IV fluid hydration now.
--- NOTE | 2019-11-01 23:13 | REP ---
ABDOMEN VIEWS, TWO VIEWS PRESENTED: HISTORY: Evaluate for common bile duct stent. Comparison CT images are from 10/24/2019. FINDINGS: Upright AP and lateral views of the abdomen demonstrate a wall stent projecting in the right paraspinal region adjacent to the L3 and L4 vertebral bodies. This is consistent with a common bile duct stent. It projects in the mid abdomen on the lateral radiographs. It does not appear to have been in place at the time of the CT study from 10/24/2019. There are a few small large bowel air-fluid levels. No colonic obstruction is seen. There is an abdominal aortic aneurysm noted, as seen on CT. IMPRESSION: There is a wall stent in the right mid abdomen consistent with a biliary stent. Otherwise, negative. Electronically Signed by Riley Ortiz MD 11/02/2019 06:50 A
[2019-11-02] MEDS: MORPHINE 2 MG/ML 1ML VIAL (J2270) IV PRN ×4 (00:27→20:59)
[2019-11-02 01:31] VITALS: O2SAT 93
[2019-11-02] MEDS: PERCOCET 5MG/325MG TAB PO PRN ×4 (02:37→17:44)
[2019-11-02] MEDS: D5W/0.9% SODIUM CHLORIDE 1,000 ML IV SCH (05:56)
[2019-11-02] MEDS: PIPERACILLIN/TAZOBACTAM SOD 2.25 GM in D5W MINI-BAG PLUS 50 ML IV SCH ×2 (05:56→13:04)
[2019-11-02 06:00] VITALS: BP 152/76
[2019-11-02 06:26] LABS: BASO % 0.2 % (0.0-1.0); EOS # 0.1 10^3/uL (0.0-0.5); EOS % 0.5 % (0.0-3.0); HEMOGLOBIN 8.4 g/dl (12.0-15.5); LYMPH % 4.5 % (24.0-44.0); MEAN CORPUSCULAR HEMOGLOBIN 29.3 pg (27.0-33.0); MEAN CORPUSCULAR HGB CONC 31.1 g/dl (32.0-36.5); MEAN CORPUSCULAR VOLUME 94.1 fl (80.0-96.0); MONO # 1.2 10^3/uL (0.0-0.8); MONO % 5.4 % (0.0-5.0); NEUTROPHILS # 20.3 10^3/uL (1.5-8.5); NEUTROPHILS % 88.7 % (36.0-66.0); PLATELET COUNT, AUTOMATED 529 10^3/uL (150-450); RED BLOOD COUNT 2.87 10^6/uL (4.00-5.40); WHITE BLOOD COUNT 22.8 10^3/uL (4.0-10.0)
[2019-11-02 06:44] LABS: ALBUMIN 1.7 GM/DL (3.2-5.2); BILIRUBIN,TOTAL 0.4 MG/DL (0.2-1.0); CALCIUM LEVEL 8.1 MG/DL (8.8-10.2); CREATININE FOR GFR 3.48 MG/DL (0.55-1.30); GLOMERULAR FILTRATION RATE 14.1 (>45); POTASSIUM SERUM 4.4 MEQ/L (3.5-5.1); TOTAL PROTEIN 6.2 GM/DL (6.4-8.2)
[2019-11-02] MEDS: MIRALAX *UNIT DOSE* 17GM PACKET PO SCH ×2 (08:02→20:58)
[2019-11-02] MEDS: HumaLOG INSULIN (NovoLOG) PER UNIT SC SCH ×4 (08:03→21:00)
[2019-11-02] MEDS: ASPIRIN ENTERIC 325 MG TAB PO SCH (08:03)
[2019-11-02] MEDS: HEPARIN SOD (PORCINE) 5000UNITS/ML VIAL (J1644 PER 1000UNITS) SC SCH ×2 (08:03→20:59)
[2019-11-02] MEDS: LEVEMIR (INSULIN DETEMIR) 1 UNITS/0.01ML SC SCH (08:04)
[2019-11-02] MEDS: FERROUS GLUCONATE 324 MG TAB PO SCH ×2 (08:04→21:02)
[2019-11-02] MEDS: LACTOBACILLUS ACIDOPHILUS CAP (BACID) PO SCH ×2 (08:04→17:44)
[2019-11-02] MEDS: CLOPIDOGREL 75 MG TAB PO SCH (08:06)
[2019-11-02] MEDS: PANTOPRAZOLE 40MG TAB (PROTONIX) PO SCH ×2 (08:06→21:02)
[2019-11-02] MEDS: amLODIPine 10 MG TAB PO SCH (08:06)
[2019-11-02] MEDS: METOPROLOL TART 25 MG TABLET PO SCH (08:06)
[2019-11-02] MEDS: SIMETHICONE 80 MG CHEW TAB PO PRN (08:06)
[2019-11-02] MEDS: SITagliptin 50 MG TAB (JANUVIA) PO SCH (08:07)
--- NOTE | 2019-11-02 12:06 | IPNPDOC ---
Subjective Date Seen The patient was seen on 11/02/19. Subjective Chief Complaint/HPI According to patient, her pain is slightly less, but he still gets on and off, improved with pain medications General: Denies: ROS Unobtainable, Chills, Night Sweats, Fatigue, Malaise, Normal Appetite, Other Symptoms Constitutional: Denies: Chills, Fever, Malaise, Night Sweats, Weakness, Fatigue, Weight Loss, Lethargy, Other Skin: Denies: Rash, Lesions, Jaundice, Bruising, Itching, Dry, Breakdown, Nail Changes, Other Pulmonary: Denies: Dyspnea, Cough, Pleuritic Chest Pain, Other Symptoms Cardiovascular: Denies: Chest Pain, Palpitations, Orthopnea, Paroxysmal Noc. Dyspnea, Edema, Lt Headedness, Other Symptoms Gastrointestinal: Reports: Abdominal Pain Genitourinary: Denies: Dysuria, Frequency, Incontinence, Hematuria, Retention, Other Symptoms Hematologic: Denies: Bruising, Bleeding Excessively, Petecchia, Purpura, Enlarged Lymph Nodes, Other Hematologic Neurological: Denies: Weakness, Numbness, Incoordination, Change in speech, Confusion, Seizures, Other Symptoms Psych: Denies: Mood Normal, Anxiety, Depression, Memory Issues, Thoughts of Self Harm, Anger, Thoughts of Harming Other, Other Psych Objective Physical Examination Eye Exam: Positive: PERRLA, Conjunctiva & lids normal ENT Exam: Positive: Atraumatic Neck Exam: Positive: Supple Chest Exam: Positive: Clear to auscultation, Normal air movement Heart Exam: Positive: Rate Normal, Normal S1, Normal S2 Abdomen Exam: Positive: Normal bowel sounds, Soft, Tenderness (generalized tenderness all over the abdomen on direct palpation. No rebound tenderness, no peritoneal signs) Skin Exam: Positive: Nl turgor and temperature Assessment /Plan Problems (1) Abdominal pain Status: Acute Problem Text: Still complaining of on and off abdominal pain which is gas-like in nature, nonradiating present all over the abdomen, relieved with pain meds. Does not get exacerbated by intake of food or change in position. Discussed with Dr. Trevizo this morning, we will repeat liver sonogram to co nfirm that biliary stent is in place Patient's CBC today shows WBC count of 22.8, continue empiric antibiotics, Zosyn as per orders Patient had a repeat sonogram of the liver done yesterday which showed: Pneumobilia. Common bile duct stent not well seen. Common bile duct appears dilated. Coarse liver texture. Complex cyst right kidney. GI was informed by Dr. Gaona yesterday. Awaiting input from Dr. Trevizo regarding any further management Continue pain management and IV fluid as per orders (2) BRIGITTE (acute kidney injury) Status: Acute Problem Text: Acute renal failure likely 2/2 to polycystic kidney disease (PCKD) and medication (toradol). Cr worsened at 2.9, nephrology following. C/w torsemide C/w renal diet, avoid nephrotoxic medications (i.e. NSAIDs). Discussed with Dr. Gaona today, Pts' creatinine is stable. Most likely she will require hemodialysis and near future Continue present meds (3) Leukocytosis, unspecified Status: Acute Problem Text: None specific Leukocytosis r/o abdominal cause (i.e. pancreatic mass causing pancreatic duct dilation or something in CHD causing dilation, ? leukemoid rx?). UA was mild but UCx not sent. Repeat UA sent. Nephrology stopped Zosyn yesterday to see if WBC keeps going up. Known etiology, Dr Thomas called for infectious disease consult if no source is detected, then we'll possibly consider hematology/oncology pathology (4) Pancreatic duct dilated Status: Acute Problem Text: Pancreatic duct dilation and common hepatic did dilate patient Status post-ERCP with stent placement pt is clinically feeling much better. Abdominal pain has resolved Discussed with Dr. Trevizo, he wants to continue IV antibiotics for a few days, will restart IV, but antibiotics, Zosyn 2.25 mg IV every 8 hours WBC count is still 20.1, but patient is afebrile and electrolytes are within normal range Restart all home meds including pain management Further instructions as per GI (5) HTN (hypertension) Status: Chronic Problem Text: Continue home meds (6) UTI (urinary tract infection) Status: Acute Problem Text: UTI. Repeat UA was done, + but appeared better. UCx NG.pt is already on Zosyn for abdominal pathology Plan/VTE VTE Prophylaxis Ordered?: Yes VS, I&O, 24H, Fishbone Vital Signs/I&O Vital Signs Date Time Temp Pulse Resp B/P (MAP) Pulse Ox O2 Delivery O2 Flow Rate FiO2 11/02/19 10:46 18 91 Room Air 6/26/20 10:36 98.0 11/02/19 08:06 78 152/76 11/02/19 01:31 0.0 I&O- Last 24 Hours up to 6 AM 11/02/19 06:00 Intake Total 840 ml Output Total 1300 ml Balance -460 ml Laboratory Data 24H LABS Laboratory Tests 2 11/01/19 16:38: Bedside Glucose (Misc Panel) 156H 11/01/19 20:43: Bedside Glucose (Misc Panel) 172H 11/02/19 05:56: Immature Granulocyte % (Auto) 0.7, Neutrophils (%) (Auto) 88.7H, Lymphocytes (%) (Auto) 4.5L, Monocytes (%) (Auto) 5.4H, Eosinophils (%) (Auto) 0.5, Basophils (%) (Auto) 0.2, Neutrophils # (Auto) 20.3H, Lymphocytes # (Auto) 1.0L, Monocytes # (Auto) 1.2H, Eosinophils # (Auto) 0.1, Basophils # (Auto) 0.0, Nucleated Red Blood Cells % (auto) 0.0, Anion Gap 6L, Glomerular Filtration Rate 14.1L, Calcium Level 8.1L, Total Bilirubin 0.4, Aspartate Amino Transf (AST/SGOT) 14, Alanine Aminotransferase (ALT/SGPT) 23, Alkaline Phosphatase 161H, Total Protein 6.2L, Albumin 1.7L, Albumin/Globulin Ratio 0.4L, Lipase 5942H 11/02/19 11:32: Bedside Glucose (Misc Panel) 195H CBC/BMP Laboratory Tests 11/02/19 05:56 Microbiology Microbiology 10/28/19 Urine Culture - Final, Complete 10/27/19 Blood Culture - Final, Complete NO GROWTH AFTER 5 DAYS 10/27/19 Blood Culture - Final, Complete NO GROWTH AFTER 5 DAYS DINO AVILA MD Nov 02, 2019 12:06
[2019-11-02 13:07] LABS: ANTI DS-DNA AB Negative (Negative)
[2019-11-02 14:00] VITALS: BP 151/76
[2019-11-02] MEDS ORDERED: MEROPENEM INJ 1 GM in IV 1 EA IV SCH (14:15)
[2019-11-02] MEDS: MEROPENEM INJ 1 GM in IV 1 EA IV SCH (15:41)
[2019-11-02 22:00] VITALS: BP 157/75
[2019-11-03] MEDS: PERCOCET 5MG/325MG TAB PO PRN ×5 (00:32→23:13)
[2019-11-03] MEDS: MEROPENEM INJ 1 GM in IV 1 EA IV SCH ×2 (04:41→15:46)
[2019-11-03] MEDS: MORPHINE 2 MG/ML 1ML VIAL (J2270) IV PRN ×4 (05:30→21:41)
[2019-11-03 06:00] VITALS: BP 156/76
[2019-11-03 06:10] LABS: BASO # 0.1 10^3/uL (0.0-0.2); BASO % 0.3 % (0.0-1.0); EOS # 0.3 10^3/uL (0.0-0.5); EOS % 1.3 % (0.0-3.0); HEMATOCRIT 27.5 % (36.0-47.0); HEMOGLOBIN 8.6 g/dl (12.0-15.5); LYMPH % 4.9 % (24.0-44.0); MEAN CORPUSCULAR HEMOGLOBIN 29.4 pg (27.0-33.0); MEAN CORPUSCULAR HGB CONC 31.3 g/dl (32.0-36.5); MEAN CORPUSCULAR VOLUME 93.9 fl (80.0-96.0); NEUTROPHILS % 87.4 % (36.0-66.0); PLATELET COUNT, AUTOMATED 602 10^3/uL (150-450); RED BLOOD COUNT 2.93 10^6/uL (4.00-5.40); WHITE BLOOD COUNT 19.4 10^3/uL (4.0-10.0)
[2019-11-03 06:28] LABS: ALBUMIN 1.8 GM/DL (3.2-5.2); BILIRUBIN,TOTAL 0.2 MG/DL (0.2-1.0); CALCIUM LEVEL 8.7 MG/DL (8.8-10.2); CREATININE FOR GFR 3.68 MG/DL (0.55-1.30); GLOMERULAR FILTRATION RATE 13.3 (>45); POTASSIUM SERUM 4.8 MEQ/L (3.5-5.1); TOTAL PROTEIN 6.5 GM/DL (6.4-8.2)
[2019-11-03] MEDS: LEVEMIR (INSULIN DETEMIR) 1 UNITS/0.01ML SC SCH (08:55)
[2019-11-03] MEDS: HumaLOG INSULIN (NovoLOG) PER UNIT SC SCH ×4 (08:56→20:42)
[2019-11-03] MEDS: CLOPIDOGREL 75 MG TAB PO SCH (08:56)
[2019-11-03] MEDS: LACTOBACILLUS ACIDOPHILUS CAP (BACID) PO SCH ×2 (08:56→17:36)
[2019-11-03] MEDS: FERROUS GLUCONATE 324 MG TAB PO SCH ×2 (08:56→20:50)
[2019-11-03] MEDS: PANTOPRAZOLE 40MG TAB (PROTONIX) PO SCH ×2 (08:56→20:50)
[2019-11-03] MEDS: HEPARIN SOD (PORCINE) 5000UNITS/ML VIAL (J1644 PER 1000UNITS) SC SCH ×2 (08:56→20:54)
[2019-11-03] MEDS: ASPIRIN 81 MG ENTERIC TAB PO SCH (08:56)
[2019-11-03] MEDS: MIRALAX *UNIT DOSE* 17GM PACKET PO SCH ×2 (08:57→20:49)
[2019-11-03] MEDS: amLODIPine 10 MG TAB PO SCH (08:58)
[2019-11-03] MEDS: METOPROLOL TART 25 MG TABLET PO SCH (08:59)
--- NOTE | 2019-11-03 12:11 | IPN ---
DATE: 11/02/2019 SUBJECTIVE: The patient was seen and examined at the bedside this morning. She reports her abdominal pain is slightly better today. She was started on IV fluid hydration yesterday because of acute pancreatitis. She still has persistent leukocytosis. White cell count is 22,000. Renal function is slightly worse with a creatinine that has bumped up to 3.4 today. OBJECTIVE: VITAL SIGNS: Temperature is 90 degrees Fahrenheit, blood pressure 152/76, pulse is 78, respiratory of 18, saturating 91% on room air. Intake and output: Urine output recorded is 2 liters yesterday. Today's his output is not recorded. Weight in the bed scale is not available. PHYSICAL EXAMINATION: GENERAL: The patient is awake, alert, oriented times three. HEAD AND NECK: Exam extraocular muscles intact. Pupils equally round and reactive to light. Mucous membranes are moist. Neck is supple. Mildly elevated jugular venous distention (JVD). CARDIOVASCULAR: S1, S2 regular rate. No edema of the bilateral extremities. RESPIRATORY: Chest is clear to auscultation bilaterally. Bilateral equal air entry. No rales or rhonchi. ABDOMEN: Soft, moderately tender to deep palpation in the epigastric region. Positive bowel sounds. GENITOURINARY: Bladder is not palpable. MUSCULOSKELETAL: No clubbing or cyanosis. Pulses are 2+. Central nervous system ([employer]): No focal deficit. Power is 5/5 in all extremities. LAB REVIEW: CBC showed WBC 22.8, hemoglobin is 8.4, platelets are 529. BMP showed sodium 133, potassium 4.4, chloride 101, bicarb 26, BUN 40, creatinine is 3.4, pulse is 161 and albumin is 1.7, lipase is 5942. CURRENT INPATIENT MEDICATIONS: The patient's medications were all reviewed by me. The patient was getting D5 normal saline at 100 mL an hour because of risk of her congestive heart failure and chronic kidney disease (CKD). I have stopped the IV fluids. I the Zosyn has been stopped by infectious disease (ID). She has been started on meropenem 1 gram IV every 12 hours. Torsemide has was stopped yesterday. I am stopping Januvia because of acute pancreatitis. ASSESSMENT/PLAN: 1. Acute pancreatitis: She was given gentle IV fluid hydration. She is able to tolerate the oral liquids now. IV fluids have been. Pain is being optimized with IV morphine. 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 She is also being followed by GI. 2. 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 Antibiotics have been changed to meropenem by infectious disease. 3. Persistent leukocytosis: Cultures are negative so far. There is a possibility that the patient might have an ascending cholangitis or cyst infection because of polycystic kidney disease. She is currently on IV meropenem, which should cover gram-negative and anaerobic infections. The rest of the management is as per ID recommendations. 4. Acute kidney injury superimposed on chronic kidney disease stage IV. The patient has polycystic kidney disease at baseline. Unfortunately she has had recurrent episodes of acute kidney injury (BRIGITTE) secondary to infection and leukocytosis, CBD obstruction and possible cyst infection although all the cultures are negative so far. IV fluids have been stopped because of risk of her decompensated congestive heart failure. 5. Hypertension. Continue metoprolol, hydralazine and amlodipine. 6. Chronic diastolic congestive heart failure. Diuretics were held and she was given IV fluids for 24 hours because of acute pancreatitis. The patient is getting as needed diuretic dosages based upon her volume status. DISPOSITION: The patient is not stable for discharge. She is recovering from acute pancreatitis and renal function has not improved to baseline. I explained to the patient that she might need to start hemodialysis during this hospitalization if the renal function does not recover.
--- NOTE | 2019-11-03 13:47 | IPNPDOC ---
Subjective Date Seen The patient was seen on 11/03/19. Subjective Chief Complaint/HPI Patient on and off gets some abdominal pain but is much better since last few days, pain medication is working as per patient General: Denies: ROS Unobtainable, Chills, Night Sweats, Fatigue, Malaise, Normal Appetite, Other Symptoms Constitutional: Denies: Chills, Fever, Malaise, Night Sweats, Weakness, Fatigue, Weight Loss, Lethargy, Other Pulmonary: Denies: Dyspnea, Cough, Pleuritic Chest Pain, Other Symptoms Cardiovascular: Denies: Chest Pain, Palpitations, Orthopnea, Paroxysmal Noc. Dyspnea, Edema, Lt Headedness, Other Symptoms Gastrointestinal: Denies: Nausea, Vomiting, Abdominal Pain, Diarrhea, Constipation, Melena, Hematochezia, Other Symptoms Hematologic: Denies: Bruising, Bleeding Excessively, Petecchia, Purpura, Enlarged Lymph Nodes, Other Hematologic Endocrine: Denies: Polydipsia, Polyphagia, Polyuria, Heat Intolerance, Cold Intolerance, Other Endocrine Sx Neurological: Denies: Weakness, Numbness, Incoordination, Change in speech, Confusion, Seizures, Other Symptoms Objective Physical Examination Eye Exam: Positive: PERRLA, Conjunctiva & lids normal ENT Exam: Positive: Atraumatic Neck Exam: Positive: Supple Chest Exam: Positive: Clear to auscultation, Normal air movement Heart Exam: Positive: Rate Normal, Normal S1, Normal S2 Abdomen Exam: Positive: Normal bowel sounds, Soft, Tenderness (generalized tenderness all over the abdomen on direct palpation. No rebound tenderness, no peritoneal signs) Skin Exam: Positive: Nl turgor and temperature Assessment /Plan Problems (1) Abdominal pain Status: Acute Problem Text: According to the patient pain has much improved some time. Occasionally she gets severe pain, but most of the time is well under control with current pain management ID consult appreciated. Patient has been started on Merrem WBC count today is decreased to 19.4 and will continue monitoring Discussed with Dr. Trevizo again last night and he recommends to continue with the present management (2) BRIGITTE (acute kidney injury) Status: Acute Problem Text: Acute renal failure likely 2/2 to polycystic kidney disease (PCKD) and medication (toradol). Cr worsened at 2.9, nephrology following. C/w torsemide C/w renal diet, avoid nephrotoxic medications (i.e. NSAIDs). Discussed with Dr. Gaona today, Pts' creatinine is stable. Most likely she will require hemodialysis and near future Continue present meds (3) Leukocytosis, unspecified Status: Acute Problem Text: ID Consult appreciated Diamond has been started on meropenem WBC count is decreased slightly to 19.4 today Prabhjot is still afebrile and will monitor CBC every day (4) Pancreatic duct dilated Status: Acute Problem Text: Pancreatic duct dilation and common hepatic did dilate patient Status post-ERCP with stent placement pt is clinically feeling much better. Abdominal pain has resolved Discussed with Dr. Trevizo, he wants to continue IV antibiotics for a few days, will restart IV, but antibiotics, Zosyn 2.25 mg IV every 8 hours WBC count is still 20.1, but patient is afebrile and electrolytes are within normal range Restart all home meds including pain management Further instructions as per GI (5) HTN (hypertension) Status: Chronic Problem Text: Continue home meds (6) UTI (urinary tract infection) Status: Acute Problem Text: UTI. Repeat UA was done, + but appeared better. UCx NG.pt is already on Zosyn for abdominal pathology (7) Acute pancreatitis Status: Acute Problem Text: Is likely secondary to ERCP Continue IV fluid and pain management Repeat lipase in a.m. Plan/VTE VTE Prophylaxis Ordered?: Yes VS, I&O, 24H, Fishbone Vital Signs/I&O Vital Signs Date Time Temp Pulse Resp B/P (MAP) Pulse Ox O2 Delivery O2 Flow Rate FiO2 11/03/19 10:25 18 11/03/19 08:58 83 153/75 11/03/19 06:00 98.0 95 Room Air 11/02/19 18:14 0.0 I&O- Last 24 Hours up to 6 AM 11/03/19 06:00 Intake Total 2240 ml Output Total 550 ml Balance 1690 ml Laboratory Data 24H LABS Laboratory Tests 2 11/02/19 16:28: Bedside Glucose (Misc Panel) 113 11/02/19 21:00: Bedside Glucose (Misc Panel) 185H 11/03/19 05:39: Immature Granulocyte % (Auto) 1.1, Neutrophils (%) (Auto) 87.4H, Lymphocytes (%) (Auto) 4.9L, Monocytes (%) (Auto) 5.0, Eosinophils (%) (Auto) 1.3, Basophils (%) (Auto) 0.3, Neutrophils # (Auto) 17.0H, Lymphocytes # (Auto) 1.0L, Monocytes # (Auto) 1.0H, Eosinophils # (Auto) 0.3, Basophils # (Auto) 0.1, Nucleated Red Blood Cells % (auto) 0.0, Anion Gap 12, Glomerular Filtration Rate 13.3L, Calci um Level 8.7L, Total Bilirubin 0.2, Aspartate Amino Transf (AST/SGOT) 16, Alanine Aminotransferase (ALT/SGPT) 19, Alkaline Phosphatase 181H, Total Protein 6.5, Albumin 1.8L, Albumin/Globulin Ratio 0.4L 11/03/19 12:23: Bedside Glucose (Misc Panel) 163H CBC/BMP Laboratory Tests 11/03/19 05:39 Microbiology Microbiology 10/28/19 Urine Culture - Final, Complete 10/27/19 Blood Culture - Final, Complete NO GROWTH AFTER 5 DAYS 10/27/19 Blood Culture - Final, Complete NO GROWTH AFTER 5 DAYS DINO AVILA MD Nov 03, 2019 13:47
[2019-11-03 14:00] VITALS: BP 161/79
--- NOTE | 2019-11-03 14:17 | IPN ---
DATE: 11/03/2019 Mrs. Rowan was seen this morning on her bedside. She continues to have abdominal pain and discomfort and has been diagnosed with acute pancreatitis following a pancreatic stent placement. She is eating and denies any vomiting or diarrhea. She has no dyspnea or chest pain at present. PHYSICAL EXAMINATION: Temperature 98.0 degrees Fahrenheit, heart rate 83 per minute and respiratory rate 18 per minute. Blood pressure 153/75 mmHg and oxygen saturation 95% on room air. Intake and output records from yesterday are incomplete as urine output has not been recorded. Her weight is essentially unchanged for the last 3 days. Head is atraumatic. Her neck veins are moderately distended. She has no oral thrush or ulcers. Pupils equal and reactive to light and sclera is anicteric. Trachea is midline and thyroid not enlarged. Heart sounds are regular and lungs sound clear to auscultation. Abdomen is markedly tender, particularly in right upper quadrant and epigastric area. Bowel sounds are normal. Extremities have no cyanosis or clubbing. Neurologically she is awake, alert and oriented times three. Today's labs show WBC count 19.4, hemoglobin 8.6 and hematocrit 27.5. Platelets 602. Sodium 137, potassium 4.8, CO2 of 22, BUN 39 and creatinine 3.68. PROBLEMS: 1. Acute kidney injury superimposed on chronic kidney disease. The patient has known history of polycystic kidneys and probably has significant underlying kidney disease. Acute kidney injury is related to her acute pancreatitis and is gradually worsening. We will continue to monitor her closely. At this point, there is no emergent need for dialysis but she is very much likely to require dialysis even during this admission if her kidney function does not improve. 2. Anemia. Her anemia is unchanged for the last 24 hours. No urgent intervention is indicated. 3. Acute pancreatitis following pancreatic stent placement. The patient is tolerating her diet at present and remains on meropenem 1 gram every 12 hours. Her Zosyn has been stopped. 4. Hypertension. Blood pressure is reasonably well controlled on current medications and no changes are being made today. 5. Diabetes. Her blood sugars are also reasonably well controlled on current medications.
--- NOTE | 2019-11-03 14:31 | CR ---
DATE OF CONSULTATION: 11/01/2019 INFECTIOUS DISEASE CONSULTATION This consultation was done on 11/01/2019. Asked to consult by Dr. Disla for evaluation of worsening leukocytosis. HISTORY OF PRESENT ILLNESS: Mrs. Rowan is a 63-year-old female who presented to [facility] with complaints of increasing abdominal pain, nausea and vomiting that has been going on for at least 1 month prior to admission. The patient was progressively getting worse and pain was intense that she went to [facility]. When she arrived there, she was noted to be hyperkalemic, and had acute kidney injury and therefore, was transferred to [facility] for further management and nephrology consultation. The patient had abnormal liver function tests as well. Since admission, she was seen in consultation with Dr. Trevizo, who did an endoscopic retrograde cholangiopancreatography (ERCP) for evaluation of a malignant stricture and elevated liver enzymes. He did take some cytology to rule out malignancy and placed a stent in the common bile duct. Diagnosis was biliary papillary stenosis. The patient is status post cholecystectomy. Since hospitalization, in the past 10 days, the patient states her vomiting has resolved as well as nausea. Her major complaint is significant abdominal discomfort and distension. She has had no fever or chills during this month. She had no dysuria, hematuria or flank pain. No urinary symptoms. She had a slight cough initially with shortness of breath. These have improved. PAST MEDICAL HISTORY: Significant for coronary artery disease, status post inferior wall myocardial infarction (AL) in 1998, hypertension, diabetes, hyperlipidemia, chronic obstructive pulmonary disease (COPD), obesity. PAST SURGICAL HISTORY: Coronary stent placement, appendectomy and cholecystectomy. Recent ERCP and stent placement. SOCIAL HISTORY: She is a smoker, half a pack a day. Denies alcohol or drug use. She lives with her . FAMILY HISTORY: Sister has kidney failure. ALLERGIES: PROCHLORPERAZINE and SUMATRIPTAN. MEDICATIONS: Zosyn 2.25 grams IV every 8 hours - that was started on 10/26/2019 to 10/28/2019; she had 48 hours, then was resumed on 10/30/2019. She received one dose Zithromax. Zofran as needed, hydralazine 20 mg by mouth every 8 hours as needed, aspirin 325 mg by mouth daily, ferrous gluconate 325 mg by mouth twice a day, Glucagon as needed, Januvia 50 mg by mouth daily, Levemir 10 units subcu morning, Lopressor 25 mg by mouth daily, MiraLax one packet by mouth twice a day, morphine as needed. LABORATORY DATA: White count was 21.6, hemoglobin 9.1, hematocrit 28.6, platelets 515, 88% neutrophils, 5% lymphocytes, 6% monocytes. Sodium 132, potassium 4.3, chloride 98, bicarbonate 26, BUN 39, creatinine 3.12, glucose 168, calcium 8, AST 17, ALT 23, alkaline phosphatase 168, CRP 16.4, total protein 6, albumin 1.8, lipase done on admission was 155. Blood cultures, four sets, were negative; two sets were done on 10/22/2019 and two sets on 10/27/2019. Respiratory panel was negative. Urine culture times two were negative. Liver ultrasound done on 11/01/2019 showed pneumobilia, common bile duct stent, not well seen. Common bile duct appears dilated and a complex cyst of the right kidney. Abdominal MRI done on 10/27/2019 shows intra and extrahepatic biliary ductal dilatation, dilated pancreatic duct. Concern for pancreatic head obstruction, etiology stricture versus mass. Chest x-ray done on 10/24/2019 shows no infiltrate, minimal plate-like atelectasis. Chest CT done on 10/24/2019: Increased small bilateral pleural effusion with some compressive atelectasis and fluid in the fissures. On physical exam, she is a healthy looking female in no acute distress. Temperature 98.6, pulse 85, respirations 17, blood pressure 165/77, oxygen saturation (O2 sat) 92% on room air. She has been afebrile throughout the admission except for one temperature of 100. Heart: Normal S1, S2. No murmurs, rubs or gallops. Lungs: Diminished air entry at the bases but otherwise clear. No wheezes, rales or rhonchi. Abdomen: Very distended, soft, decreased bowel sounds. Slight guarding in the lower quadrants. Back: No costovertebral angle (CVA) or lumbosacral tenderness. Extremities: No clubbing, cyanosis or edema. No calf tenderness. Skin: No rashes. TATIANA negative. Myeloperoxidase pending. Double-stranded DNA negative. Free kappa and lambda both elevated. Complement level C3 was 132, complement 4 was 29. Cytology was negative for malignancy from biliary duct. Urinalysis had 12 white cells, 37 red cells with a negative culture. IMPRESSION: This is a 63-year-old female who was admitted with abnormal liver function tests and common bile duct stricture, status post ERCP and stenting. The patient has persistent leukocytosis most likely reactive or due to acute pancreatitis which is very common after ERCP. I did add on a lipase level to her a morning blood work. PLAN: The case has been discussed with Dr. Trevizo who has been seeing the patient regularly. He does not believe that there is an infectious etiology either. Discontinue IV Zosyn and switch to meropenem at risk of severe necrotizing pancreatitis; dose will be 1 gram IV every 12 hours. Continue to monitor white count. At this point, I do not see any other infectious etiologies. I will be out of town for the next week and signing off. MTDD
--- NOTE | 2019-11-03 15:36 | IPNPDOC ---
Date Seen The patient was seen on 11/02/19. Progress Note Interval history: Patient underwent ERCP, CBD brushing and covered metal stent placement on 10/28. ( Please see the operative note for detailed report). Patient tolerated the procedure well and post procedure, patient still continued to have abdominal pain, same type and located in upper abdomen, no specific aggravating or relieving factors, associated with abdominal bloating, no nausea or vomiting and able to tolerate oral diet. Patient did report her constipation is worse with no bowel movements for 3 days ( likely from her opioid pain medications). Patient denies any fever, chills and back pain.. Exam: Vitals: reviewed General: Alert and oriented x 3, Mild to moderate distress from abdominal pain. Abdomen: non-distended, no surgical scars, soft, mild tenderness in epigastric area, no rigidity or guarding, no palpable masses, normal bowel sounds heard. Labs: reviewed. CBD brush cytology- normal, no malignancy. Lipase was elevated. Imaging: reviewed. Ultrasound abdomen and Xray abdomen were done- which showed there is air in CBD and X-ray showed present of the CBD stent. Impression: -- Persistent epigastric pain without improvement, No fever, labs showing persistent elevation of the WBC, lipase elevation, -- DDx -- reactive changes in WBC/ leukemoid reaction vs rule out hematologic disorder vs pancreatitis vs Persistent UTI and sepsis. -- Dilated CBD and PD on MRI and CT abdomen - s/p ERCP with CBD brush cytology - normal cell, CBD stent placement, no cholangitis -- DDx-- Choledochal cyst vs physiologic change from prior cholecystectomy. Cannot still rule out pancreatic mass ( as all abdominal studies done were without contrast). -- Elevated lipase -- Could be from ERCP stent placement vs post ERCP pancreatitis vs rule out pancreatic cancer. -- Constipation-- likely from Opioid use. Recommendations: -- Patient educated about the test results, possible differential diagnoses and All questions answered. -- As patient has good appetite, will continue as tolerated. -- Discussed with ID team. At this time cannot rule out sepsis related leucocytosis vs reactive changes. Follow ID recommendations for antibiotics use. -- For suspected pancreatitis, will suggest judicious use of IV fluids ( Due to worsening renal function, to monitor and adjust hydration as per nephrology.). Patient does NOT clinically appear to have severe pancreatitis. -- As the renal function continues to worsen, depending the clinical course, risks and benefits, will recommend a cross sectional imaging test- prefer CT or MRI pancreatic protocol with IV contrast ( to ruleout pancreatic mass and intraabdominal sepsis/ masses), after optimizing renal function or with dialysis. -- As the brush cytology does not show intraductal malignancy, will consider Repeat ERCP and stent removal and sphincterotomy based on the clinical course and after above abdominal imaging. -- In anticipation for dialysis catheter and repeat ERCP, will hold plavix and high dose ASA 325 mg for now and can put patient on low dose aspirin 81 mg. -- For opioid use related constipation, will start on miralax twice daily for now. -- GI will follow. Please update if any acute change in status. Plan of care discussed with patient and primary team. Patient verbalized understanding and agreed with the plan. VS, I&O, 24H, Fishbone Vital Signs/I&O Vital Signs Date Time Temp Pulse Resp B/P (MAP) Pulse Ox O2 Delivery O2 Flow Rate FiO2 11/03/19 10:25 18 11/03/19 08:58 83 153/75 11/03/19 06:00 98.0 95 Room Air 11/02/19 18:14 0.0 I&O- Last 24 Hours up to 6 AM 11/03/19 06:00 Intake Total 2240 ml Output Total 550 ml Balance 1690 ml Laboratory Data 24H LABS Laboratory Tests 2 11/02/19 16:28: Bedside Glucose (Misc Panel) 113 11/02/19 21:00: Bedside Glucose (Misc Panel) 185H 11/03/19 05:39: Immature Granulocyte % (Auto) 1.1, Neutrophils (%) (Auto) 87.4H, Lymphocytes (%) (Auto) 4.9L, Monocytes (%) (Auto) 5.0, Eosinophils (%) (Auto) 1.3, Basophils (%) (Auto) 0.3, Neutrophils # (Auto) 17.0H, Lymphocytes # (Auto) 1.0L, Monocytes # (Auto) 1.0H, Eosinophils # (Auto) 0.3, Basophils # (Auto) 0.1, Nucleated Red Blood Cells % (auto) 0.0, Anion Gap 12, Glomerular Filtration Rate 13.3L, Calcium Level 8.7L, Total Bilirubin 0.2, Aspartate Amino Transf (AST/SGOT) 16, Alanine Aminotransferase (ALT/SGPT) 19, Alkaline Phosphatase 181H, Total Protein 6.5, Albumin 1.8L, Albumin/Globulin Ratio 0.4L, Lipase 4584H 11/03/19 12:23: Bedside Glucose (Misc Panel) 163H CBC/BMP Laboratory Tests 11/03/19 05:39 Microbiology Microbiology 10/28/19 Urine Culture - Final, Complete 10/27/19 Blood Culture - Final, Complete NO GROWTH AFTER 5 DAYS 10/27/19 Blood Culture - Final, Complete NO GROWTH AFTER 5 DAYS ERIKA ALVAREZ MD Nov 03, 2019 15:36
[2019-11-03] MEDS: SIMETHICONE 80 MG CHEW TAB PO PRN (17:36)
[2019-11-03 22:00] VITALS: BP 163/80
[2019-11-04] MEDS: MORPHINE 2 MG/ML 1ML VIAL (J2270) IV PRN ×5 (02:19→22:16)
[2019-11-04] MEDS: SIMETHICONE 80 MG CHEW TAB PO PRN ×2 (02:19→17:52)
[2019-11-04] MEDS: MEROPENEM INJ 1 GM in IV 1 EA IV SCH ×2 (04:55→15:34)
[2019-11-04] MEDS: PERCOCET 5MG/325MG TAB PO PRN ×4 (05:56→20:31)
[2019-11-04 06:00] VITALS: BP 171/82
[2019-11-04 06:35] LABS: BASO # 0.1 10^3/uL (0.0-0.2); BASO % 0.4 % (0.0-1.0); EOS # 0.3 10^3/uL (0.0-0.5); EOS % 2.5 % (0.0-3.0); HEMATOCRIT 30.2 % (36.0-47.0); HEMOGLOBIN 9.3 g/dl (12.0-15.5); LYMPH # 1.2 10^3/uL (1.5-5.0); LYMPH % 8.4 % (24.0-44.0); MEAN CORPUSCULAR HEMOGLOBIN 29.1 pg (27.0-33.0); MEAN CORPUSCULAR HGB CONC 30.8 g/dl (32.0-36.5); MEAN CORPUSCULAR VOLUME 94.4 fl (80.0-96.0); MONO # 0.8 10^3/uL (0.0-0.8); NEUTROPHILS # 11.2 10^3/uL (1.5-8.5); NEUTROPHILS % 81.8 % (36.0-66.0); PLATELET COUNT, AUTOMATED 658 10^3/uL (150-450); WHITE BLOOD COUNT 13.7 10^3/uL (4.0-10.0)
[2019-11-04 06:57] LABS: ALBUMIN 1.9 GM/DL (3.2-5.2); BILIRUBIN,TOTAL 0.2 MG/DL (0.2-1.0); CALCIUM LEVEL 8.7 MG/DL (8.8-10.2); CREATININE FOR GFR 3.85 MG/DL (0.55-1.30); GLOMERULAR FILTRATION RATE 12.6 (>45); POTASSIUM SERUM 4.9 MEQ/L (3.5-5.1); TOTAL PROTEIN 6.8 GM/DL (6.4-8.2)
[2019-11-04 07:00] VITALS: BP 167/81
[2019-11-04] MEDS: FERROUS GLUCONATE 324 MG TAB PO SCH ×2 (08:23→20:30)
[2019-11-04] MEDS: HumaLOG INSULIN (NovoLOG) PER UNIT SC SCH ×4 (08:23→21:00)
[2019-11-04] MEDS: LEVEMIR (INSULIN DETEMIR) 1 UNITS/0.01ML SC SCH (08:23)
[2019-11-04] MEDS: CLOPIDOGREL 75 MG TAB PO SCH (08:23)
[2019-11-04] MEDS: ASPIRIN 81 MG ENTERIC TAB PO SCH (08:23)
[2019-11-04] MEDS: HEPARIN SOD (PORCINE) 5000UNITS/ML VIAL (J1644 PER 1000UNITS) SC SCH ×2 (08:24→20:30)
[2019-11-04] MEDS: PANTOPRAZOLE 40MG TAB (PROTONIX) PO SCH ×2 (08:24→20:30)
[2019-11-04] MEDS: LACTOBACILLUS ACIDOPHILUS CAP (BACID) PO SCH ×2 (08:24→17:03)
[2019-11-04] MEDS: MIRALAX *UNIT DOSE* 17GM PACKET PO SCH ×2 (08:26→20:30)
[2019-11-04] MEDS: METOPROLOL TART 25 MG TABLET PO SCH (08:26)
[2019-11-04] MEDS: amLODIPine 10 MG TAB PO SCH (08:26)
--- NOTE | 2019-11-04 11:51 | IPNPDOC ---
Subjective Date Seen The patient was seen on 11/04/19. Subjective Chief Complaint/HPI Patient is feeling wonderful. He has been ambulating around the floor. Pain has significantly decreased, and has been taking very few pain meds, was to go home now General: Denies: ROS Unobtainable, Chills, Night Sweats, Fatigue, Malaise, Normal Appetite, Other Symptoms Constitutional: Denies: Chills, Fever, Malaise, Night Sweats, Weakness, Fatigue, Weight Loss, Lethargy, Other Pulmonary: Denies: Dyspnea, Cough, Pleuritic Chest Pain, Other Symptoms Cardiovascular: Denies: Chest Pain, Palpitations, Orthopnea, Paroxysmal Noc. Dyspnea, Edema, Lt Headedness, Other Symptoms Gastrointestinal: Denies: Nausea, Vomiting, Abdominal Pain, Diarrhea, Constipation, Melena, Hematochezia, Other Symptoms Genitourinary: Denies: Dysuria, Frequency, Incontinence, Hematuria, Retention, Other Symptoms Musculoskeletal: Denies: Neck Pain, Back Pain, Shoulder Pain, Arm Pain, Hand Pain, Leg Pain, Foot Pain, Joint Pain, Muscle Pain, Spasms, Other Symptoms Neurological: Denies: Weakness, Numbness, Incoordination, Change in speech, Confusion, Seizures, Other Symptoms Objective Physical Examination General Exam: Positive: Alert, Cooperative Eye Exam: Positive: PERRLA, Conjunctiva & lids normal ENT Exam: Positive: Atraumatic Neck Exam: Positive: Supple Chest Exam: Positive: Clear to auscultation, Normal air movement Heart Exam: Positive: Rate Normal, Normal S1, Normal S2 Abdomen Exam: Positive: Normal bowel sounds, Soft, Tenderness (generalized tenderness all over the abdomen on direct palpation. No rebound tenderness, no peritoneal signs) Extremity Exam: Positive: Normal pulses Skin Exam: Positive: Nl turgor and temperature Neuro Exam: Positive: Strength at 5/5 X4 ext, Cranial Nerves 3-12 NL Assessment /Plan Problems (1) Abdominal pain Status: Acute Problem Text: According to the patient pain has much improved some time. Occasionally she gets severe pain, but most of the time is well under control with current pain management Patient seems to be responding to IV Merrem a WBC count is 13.7 Also, her abdominal pain has significantly decreased and is taking less pain meds and has been ambulating around the floor Patient is tolerating oral feeding very well and I'm hopeful that we can discharge her home tomorrow (2) BRIGITTE (acute kidney injury) Status: Acute Problem Text: Acute renal failure likely 2/2 to polycystic kidney disease (PCKD) and medication (toradol). Cr worsened at 2.9, nephrology following. C/w torsemide C/w renal diet, avoid nephrotoxic medications (i.e. NSAIDs). Discussed with Dr. Gaona today, Pts' creatinine is stable. Most likely she will require hemodialysis and near future Continue present meds (3) Leukocytosis, unspecified Status: Acute Problem Text: ID Consult appreciated pt has been started on meropenem WBC count decreased significantly decreased to 13.7 today Patient is afebrile, asymptomatic and possibly will be discharged home tomorrow (4) Pancreatic duct dilated Status: Acute Problem Text: Pancreatic duct dilation and common hepatic did dilate patient Status post-ERCP with stent placement pt is clinically feeling much better. Abdominal pain has resolved Discussed with Dr. Trevizo, he wants to continue IV antibiotics for a few days, will restart IV, but antibiotics, Zosyn 2.25 mg IV every 8 hours WBC count is still 20.1, but patient is afebrile and electrolytes are within normal range Restart all home meds including pain management Further instructions as per GI (5) HTN (hypertension) Status: Chronic Problem Text: Continue home meds (6) UTI (urinary tract infection) Status: Acute Problem Text: UTI. Repeat UA was done, + but appeared better. UCx NG.pt is already on Zosyn for abdominal pathology (7) Acute pancreatitis Status: Acute Problem Text: Most likely secondary to ERCP I presents 4584 which is progressively decreasing Patient is feeling clinically much better Tolerating oral feeding We'll be discharged home tomorrow Plan/VTE VTE Prophylaxis Ordered?: Yes VS, I&O, 24H, Fishbone Vital Signs/I&O Vital Signs Date Time Temp Pulse Resp B/P (MAP) Pulse Ox O2 Delivery O2 Flow Rate FiO2 11/04/19 11:12 18 11/04/19 08:47 Room Air 11/04/19 08:26 80 158/75 11/04/19 06:00 98.1 95 11/02/19 18:14 0.0 l I&O- Last 24 Hours up to 6 AM 11/04/19 06:00 Intake Total 1540 ml Output Total 350 ml Balance 1190 ml Laboratory Data 24H LABS Laboratory Tests 2 11/03/19 12:23: Bedside Glucose (Misc Panel) 163H 11/03/19 16:43: Bedside Glucose (Misc Panel) 149H 11/03/19 20:19: Bedside Glucose (Misc Panel) 201H 11/04/19 05:57: Immature Granulocyte % (Auto) 0.9, Neutrophils (%) (Auto) 81.8H, Lymphocytes (%) (Auto) 8.4L, Monocytes (%) (Auto) 6.0H, Eosinophils (%) (Auto) 2.5, Basophils (%) (Auto) 0.4, Neutrophils # (Auto) 11.2H, Lymphocytes # (Auto) 1.2L, Monocytes # (Auto) 0.8, Eosinophils # (Auto) 0.3, Basophils # (Auto) 0.1, Nucleated Red Blood Cells % (auto) 0.0, Anion Gap 9, Glomerular Filtration Rate 12.6L, Calcium Level 8.7L, Total Bilirubin 0.2, Aspartate Amino Transf (AST/SGOT) 18, Alanine Aminotransferase (ALT/SGPT) 20, Alkaline Phosphatase 168H, Total Protein 6.8, Albumin 1.9L, Albumin/Globulin Ratio 0.4L CBC/BMP Laboratory Tests 11/04/19 05:57 Microbiology Microbiology 10/28/19 Urine Culture - Final, Complete 10/27/19 Blood Culture - Final, Complete NO GROWTH AFTER 5 DAYS 10/27/19 Blood Culture - Final, Complete NO GROWTH AFTER 5 DAYS DINO AVILA MD Nov 04, 2019 11:51
[2019-11-04 14:00] VITALS: BP 139/71
[2019-11-04 22:00] VITALS: BP 152/81; O2SAT 93
[2019-11-05] MEDS: SIMETHICONE 80 MG CHEW TAB PO PRN ×3 (03:42→21:53)
[2019-11-05] MEDS: MEROPENEM INJ 1 GM in IV 1 EA IV SCH ×3 (03:42→16:00)
[2019-11-05] MEDS: PERCOCET 5MG/325MG TAB PO PRN ×4 (03:44→21:55)
[2019-11-05 06:00] VITALS: BP 163/83
[2019-11-05] MEDS: MORPHINE 2 MG/ML 1ML VIAL (J2270) IV PRN ×2 (06:37→12:36)
[2019-11-05 08:40] LABS: HEMOGLOBIN 8.7 g/dl (12.0-15.5); MEAN CORPUSCULAR HEMOGLOBIN 29.4 pg (27.0-33.0); MEAN CORPUSCULAR HGB CONC 31.1 g/dl (32.0-36.5); MEAN CORPUSCULAR VOLUME 94.6 fl (80.0-96.0); PLATELET COUNT, AUTOMATED 606 10^3/uL (150-450); RED BLOOD COUNT 2.96 10^6/uL (4.00-5.40); WHITE BLOOD COUNT 11.4 10^3/uL (4.0-10.0)
[2019-11-05] MEDS: HumaLOG INSULIN (NovoLOG) PER UNIT SC SCH ×4 (08:53→21:00)
[2019-11-05] MEDS: FERROUS GLUCONATE 324 MG TAB PO SCH ×2 (08:54→21:53)
[2019-11-05] MEDS: CLOPIDOGREL 75 MG TAB PO SCH (08:54)
[2019-11-05] MEDS: HEPARIN SOD (PORCINE) 5000UNITS/ML VIAL (J1644 PER 1000UNITS) SC SCH (08:54)
[2019-11-05] MEDS: PANTOPRAZOLE 40MG TAB (PROTONIX) PO SCH ×2 (08:54→21:53)
[2019-11-05] MEDS: amLODIPine 10 MG TAB PO SCH (08:54)
[2019-11-05] MEDS: METOPROLOL TART 25 MG TABLET PO SCH (08:54)
[2019-11-05] MEDS: ASPIRIN 81 MG ENTERIC TAB PO SCH (08:54)
[2019-11-05] MEDS: LACTOBACILLUS ACIDOPHILUS CAP (BACID) PO SCH ×2 (08:54→17:10)
[2019-11-05] MEDS: MIRALAX *UNIT DOSE* 17GM PACKET PO SCH ×2 (08:55→21:00)
[2019-11-05] MEDS: LEVEMIR (INSULIN DETEMIR) 1 UNITS/0.01ML SC SCH (08:55)
[2019-11-05 09:12] LABS: ALBUMIN 1.9 GM/DL (3.2-5.2); BLOOD UREA NITROGEN 44 MG/DL (7-18); CALCIUM LEVEL 8.6 MG/DL (8.8-10.2); CARBON DIOXIDE LEVEL 22 MEQ/L (21-32); CHLORIDE LEVEL 106 MEQ/L (98-107); CREATININE FOR GFR 3.64 MG/DL (0.55-1.30); GLOMERULAR FILTRATION RATE 13.4 (>45); GLUCOSE, FASTING 178 MG/DL (70-100); PHOSPHORUS LEVEL 6.6 MG/DL (2.5-4.9); POTASSIUM SERUM 5.4 MEQ/L (3.5-5.1); SODIUM LEVEL 136 MEQ/L (136-145)
[2019-11-05] MEDS ORDERED: SOD POLYSTYRENE SULFONATE SUSP 15 GM/60 ML UD PO ONE (10:00)
[2019-11-05 10:06] LABS: HEPATITIS B SURFACE ANTIBODY NEGATIVE (POSITIVE)
[2019-11-05 10:17] LABS: HEPATITIS B SURFACE ANTIGEN NEGATIVE (NEGATIVE)
[2019-11-05 10:44] LABS: HEPATITIS B CORE ANTIBODY IGM NEGATIVE (NEGATIVE); HEPATITIS C VIRUS ABY INDEX 0.3 INDEX (<0.8)
[2019-11-05 11:04] LABS: HEMOGLOBIN A1c 6.6 %
--- NOTE | 2019-11-05 11:17 | IPNPDOC ---
Subjective Date Seen The patient was seen on 11/05/19. Subjective Chief Complaint/HPI Patient is a comfortable, asymptomatic, afebrile, in no distress General: Denies: ROS Unobtainable, Chills, Night Sweats, Fatigue, Malaise, Normal Appetite, Other Symptoms Constitutional: Denies: Chills, Fever, Malaise, Night Sweats, Weakness, Fatigue, Weight Loss, Lethargy, Other Skin: Denies: Rash, Lesions, Jaundice, Bruising, Itching, Dry, Breakdown, Nail Changes, Other Pulmonary: Denies: Dyspnea, Cough, Pleuritic Chest Pain, Other Symptoms Cardiovascular: Denies: Chest Pain, Palpitations, Orthopnea, Paroxysmal Noc. Dyspnea, Edema, Lt Headedness, Other Symptoms Gastrointestinal: Denies: Nausea, Vomiting, Abdominal Pain, Diarrhea, Constipation, Melena, Hematochezia, Other Symptoms Musculoskeletal: Denies: Neck Pain, Back Pain, Shoulder Pain, Arm Pain, Hand Pain, Leg Pain, Foot Pain, Joint Pain, Muscle Pain, Spasms, Other Symptoms Neurological: Denies: Weakness, Numbness, Incoordination, Change in speech, Confusion, Seizures, Other Symptoms Psych: Denies: Mood Normal, Anxiety, Depression, Memory Issues, Thoughts of Self Harm, Anger, Thoughts of Harming Other, Other Psych Objective Physical Examination General Exam: Positive: Alert, Cooperative Neck Exam: Positive: Supple Chest Exam: Positive: Clear to auscultation, Normal air movement Heart Exam: Positive: Rate Normal, Normal S1, Normal S2 Abdomen Exam: Positive: Normal bowel sounds, Soft Extremity Exam: Positive: Normal pulses Skin Exam: Positive: Nl turgor and temperature Assessment /Plan Problems (1) Abdominal pain Status: Resolved Problem Text: Patient's abdominal pain has resolved with pain management She still asks for some medications on and off occasionally Pancreatitis has resolved. We will repeat a lipase again for documentation Discussed with Dr. Trevizo, he agrees with the discharge and was to follow patient with them as an outpatient as he is planning to do endoscopy ultrasound as outpatient. Dr. Cordoba asked me to discharge today to monitor his renal functions, but once patient is cleared from Dr. Cordoba. He can be discharged home Dr. Howard cannot be reached as she is off this week but IV Merrem can be changed to broad-spectrum oral antibiotics on discharge (2) BRIGITTE (acute kidney injury) Status: Acute Problem Text: Acute renal failure likely 2/2 to polycystic kidney disease (PCKD) and medication (toradol). Cr worsened at 2.9, nephrology following. C/w torsemide C/w renal diet, avoid nephrotoxic medications (i.e. NSAIDs). According that patient will probably require hemodialysis in the future Dr. Cordoba would like to monitor patient 1 more for his renal functions, once cleared from them. Patient can be discharged home (3) Leukocytosis, unspecified Status: Acute Problem Text: Resolving very well with IV meropenem WBC count today is 13.7, repeat levels in a.m. Patient can be discharged home on broad spectrum oral antibiotics, unfortunately, Dr. Thomas is not available this week But patient is afebrile, asymptomatic and can be safely discharged home once cleared from nephrology (4) Pancreatic duct dilated Status: Acute Problem Text: Pancreatic duct dilation and common hepatic did dilate patient Status post-ERCP with stent placement pt is clinically feeling much better. Abdominal pain has resolved Discussed with Dr. Trevizo, he wants to continue IV antibiotics for a few days, will restart IV, but antibiotics, Zosyn 2.25 mg IV every 8 hours WBC count is still 20.1, but patient is afebrile and electrolytes are within normal range Restart all home meds including pain management Further instructions as per GI (5) HTN (hypertension) Status: Chronic Problem Text: Continue home meds (6) UTI (urinary tract infection) Status: Resolved Problem Text: Resolved (7) Acute pancreatitis Status: Acute Problem Text: Most likely secondary to ERCP Patient is asymptomatic, afebrile, abdominal pain has resolved Tolerating oral feeding very well We will repeat lipase in a.m. for documentation but clinically his pancreatitis has resolved Plan/VTE VTE Prophylaxis Ordered?: Yes VS, I&O, 24H, Fishbone Vital Signs/I&O Vital Signs Date Time Temp Pulse Resp B/P (MAP) Pulse Ox O2 Delivery O2 Flow Rate FiO2 11/05/19 10:38 96.3 78 17 163/83 89 Room Air 0.0 I&O- Last 24 Hours up to 6 AM 11/05/19 06:00 Intake Total 1730 ml Output Total 0 ml Balance 1730 ml Laboratory Data 24H LABS Laboratory Tests 2 11/04/19 11:45: Bedside Glucose (Misc Panel) 181H 11/04/19 16:50: Bedside Glucose (Misc Panel) 133H 11/04/19 21:02: Bedside Glucose (Misc Panel) 170H 11/05/19 06:14: Bedside Glucose (Misc Panel) 129H 11/05/19 08:28: Nucleated Red Blood Cells % (auto) 0.0, Anion Gap 8, Glomerular Filtration Rate 13.4L, Estimated Mean Plasma Glucose 143H, Hemoglobin A1c 6.6, Calcium Level 8.6L, Phosphorus Level 6.6H, Albumin 1.9L, Hepatitis B Surface Antigen NEGATIVE, Hepatitis B Surface Antibody NEGATIVE, Hepatitis B Core IgM Antibody NEGATIVE, Hepatitis C Antibody Index 0.3 CBC/BMP Laboratory Tests 11/05/19 08:28 Microbiology Microbiology 10/28/19 Urine Culture - Final, Complete 10/27/19 Blood Culture - Final, Complete NO GROWTH AFTER 5 DAYS 10/27/19 Blood Culture - Final, Complete NO GROWTH AFTER 5 DAYS DINO AVILA MD Nov 05, 2019 11:17
--- NOTE | 2019-11-05 11:50 | IPN ---
DATE: 11/04/2019 SUBJECTIVE: Ms. Rowan is seen this morning on her bedside. She is sitting at the edge of the bed and reports that the abdominal pain is better now. She reports that after breakfast her pain gets much worse and she requires pain medication. She denies any dyspnea or chest pain. She has no fever or chills. PHYSICAL EXAMINATION: Her temperature is 98.1 degrees Fahrenheit, heart rate 80 per minute and respiratory rate 18 per minute. Blood pressure 158/75 mmHg and oxygen saturation 93% on room air. Her head is atraumatic. Neck is supple and without jugular venous distention (JVD) or thyroid enlargement. She has no oral thrush or ulcers. Oral mucosa is moist and healthy. Heart sounds are regular and lungs with slightly diminished breath sounds at bases. Abdomen is distended, tender in the epigastric and right upper quadrant area. Bowel sounds are normal. Extremities without any cyanosis or clubbing. Neurologically she is awake, alert and oriented x3. Today's labs show WBC count 13.7, hemoglobin 9.3 and hematocrit 30.2. Platelets 658. Sodium 134, potassium 4.9, CO2 22, BUN 43 and creatinine 3.85. Calcium level is 8.7. PROBLEMS: 1. Acute renal failure superimposed on chronic kidney disease. The patient has known polycystic kidney disease at baseline. Acute renal failure is related to acute pancreatitis. Her kidney function is getting gradually worse and I have explained to her about potential need for dialysis if her kidney function does not get better. She does not have any metabolic acidosis or hyperkalemia at this point. Renal profile will be checked again tomorrow morning. 2. Hyponatremia. She has mild hyponatremia for which no intervention is indicated and electrolytes will be checked again tomorrow. 3. Anemia. Her anemia is stable and slightly improved. No urgent intervention needed and we will continue to monitor closely. 4. Acute pancreatitis. The patient remains symptomatic and requiring frequent pain medications. At this point, her leukocytosis is improving which is an encouraging sign and we will continue to monitor her closely. She is tolerating oral intake.
--- NOTE | 2019-11-05 12:41 | REP ---
Clinical: Possible pancreatic pseudocyst. Technique: Axial noncontrast images from the lung bases to the pubic symphysis with coronal and sagittal re-formations. Comparison: 10/24/2019. Findings: Current examination demonstrates new intrahepatic and extrahepatic pneumobilia along with recently placed stent which appears to be within the head of the pancreas extending to the ampulla and duodenum. Liver, spleen, pancreas, bilateral adrenal glands and kidneys are otherwise stable in appearance including simple and complex bilateral renal lesions with moderate perinephric stranding and renovascular calcifications. No hydroureteronephrosis. No obvious pancreatic pseudocyst is identified although evaluation is limited by the lack of contrast and surrounding upper abdominal mesenteric stranding. The enteric system is without obstruction or acute inflammatory process. Scattered colonic diverticula noted without acute diverticulitis. Pelvis demonstrates normal bladder and evidence of prior hysterectomy. The abdominal aorta demonstrates atherosclerotic disease and stable infrarenal aneurysmal dilatation measuring roughly 4.3 cm maximal transverse diameter. No ascites. No free air. No obvious adenopathy. Musculoskeletal structures demonstrate age-related changes without acute osseous abnormality. Lung bases demonstrate moderate right and small left pleural effusions with associated elements of consolidation (right greater than left). Impression: 1. In comparison with prior examination new findings include intrahepatic and extrahepatic pneumobilia pancreatic stent extending through the head of the pancreas to the duodenum. 2. Chronic stable changes throughout the abdomen and pelvis as described above including presumed simple and complex renal cysts with chronic perinephric stranding. 3. Stable infrarenal abdominal aortic aneurysm measuring 4.3 cm maximal diameter. 4. Small to moderate pleural effusions and associated consolidations (right greater than left). Electronically Signed by Gibson Houston MD 11/05/2019 12:33 P
[2019-11-05 14:00] VITALS: BP 149/81
[2019-11-05] MEDS: CEFUROXIME 500 MG TAB PO SCH (21:52)
[2019-11-05 22:00] VITALS: BP 149/80
[2019-11-06 03:45] VITALS: O2SAT 94
[2019-11-06 06:00] VITALS: BP 161/88
[2019-11-06] MEDS: SIMETHICONE 80 MG CHEW TAB PO PRN (06:03)
[2019-11-06] MEDS: PERCOCET 5MG/325MG TAB PO PRN ×2 (06:04→11:08)
[2019-11-06 07:00] LABS: BASO # 0.1 10^3/uL (0.0-0.2); BASO % 0.6 % (0.0-1.0); EOS # 0.5 10^3/uL (0.0-0.5); EOS % 4.4 % (0.0-3.0); HEMATOCRIT 28.1 % (36.0-47.0); HEMOGLOBIN 8.6 g/dl (12.0-15.5); LYMPH # 1.3 10^3/uL (1.5-5.0); LYMPH % 12.6 % (24.0-44.0); MEAN CORPUSCULAR HEMOGLOBIN 29.2 pg (27.0-33.0); MEAN CORPUSCULAR HGB CONC 30.6 g/dl (32.0-36.5); MEAN CORPUSCULAR VOLUME 95.3 fl (80.0-96.0); MONO # 0.9 10^3/uL (0.0-0.8); MONO % 9.1 % (0.0-5.0); NEUTROPHILS # 7.5 10^3/uL (1.5-8.5); NEUTROPHILS % 72.5 % (36.0-66.0); PLATELET COUNT, AUTOMATED 629 10^3/uL (150-450); RED BLOOD COUNT 2.95 10^6/uL (4.00-5.40); WHITE BLOOD COUNT 10.3 10^3/uL (4.0-10.0)
[2019-11-06 07:29] LABS: CREATININE FOR GFR 3.26 MG/DL (0.55-1.30); GLOMERULAR FILTRATION RATE 15.2 (>45); POTASSIUM SERUM 5.2 MEQ/L (3.5-5.1)
[2019-11-06 07:30] LABS: ALBUMIN 1.9 GM/DL (3.2-5.2); BILIRUBIN,TOTAL 0.1 MG/DL (0.2-1.0); CALCIUM LEVEL 8.4 MG/DL (8.8-10.2); MAGNESIUM LEVEL 2.1 MG/DL (1.8-2.4); TOTAL PROTEIN 6.5 GM/DL (6.4-8.2)
[2019-11-06] MEDS: PANTOPRAZOLE 40MG TAB (PROTONIX) PO SCH (08:19)
[2019-11-06] MEDS: ASPIRIN 81 MG ENTERIC TAB PO SCH (08:19)
[2019-11-06] MEDS: CEFUROXIME 500 MG TAB PO SCH (08:19)
[2019-11-06 08:20] VITALS: BP 161/88
[2019-11-06] MEDS: LACTOBACILLUS ACIDOPHILUS CAP (BACID) PO SCH (08:20)
[2019-11-06] MEDS: FERROUS GLUCONATE 324 MG TAB PO SCH (08:20)
[2019-11-06] MEDS: amLODIPine 10 MG TAB PO SCH (08:20)
[2019-11-06] MEDS: CLOPIDOGREL 75 MG TAB PO SCH (08:20)
[2019-11-06] MEDS: HumaLOG INSULIN (NovoLOG) PER UNIT SC SCH ×2 (08:21→12:33)
[2019-11-06] MEDS: METOPROLOL TART 25 MG TABLET PO SCH (08:21)
[2019-11-06] MEDS: LEVEMIR (INSULIN DETEMIR) 1 UNITS/0.01ML SC SCH (08:21)
[2019-11-06] MEDS: MIRALAX *UNIT DOSE* 17GM PACKET PO SCH (08:22)
[2019-11-06] MEDS ORDERED: FUROSEMIDE 40 MG TAB PO SCH (09:00)
--- NOTE | 2019-11-06 09:35 | IPN ---
DATE: 11/05/2019 Ms. Rowan was seen this morning on her bedside. She still has abdominal pain and discomfort. She denies any dyspnea or chest pain. She has no fever or chills. She reports worsening pain after breakfast. She is being treated for acute pancreatitis following a pancreatic stent placement for duct stricture. On physical examination, temperature 96.3 degrees Fahrenheit, heart rate 78 per minute and respiratory rate 17 per minute. Blood pressure 163/83 mmHg and oxygen saturation 89% on room air. Head is atraumatic. Neck supple and without jugular venous distention(JVD) or thyroid enlargement. She has no oral thrush or ulcers. Heart sounds are regular and lungs sound clear to auscultation. Abdomen is still markedly tender and distended. Bowel sounds are present. Extremities without any cyanosis or clubbing. Neurologically, she is awake, alert and oriented x3. Today's labs show WBC count down to 11.4, hemoglobin 8.7 and hematocrit 28.0. Platelets 606. Sodium 136, potassium 5.4, CO2 22, BUN 44 and creatinine 3.64. Glucose 178 and calcium 8.6. Phosphorus level is 6.6. PROBLEMS: 1. Acute renal failure superimposed on chronic kidney disease. Slight improvement in kidney function is noticed which is very encouraging. She has underlying chronic kidney disease with polycystic kidneys. At this point, there is no emergent need for dialysis and I am optimistic that kidney function is likely to improve. 2. Hyperkalemia. This is unexpected. She is not receiving any medication which can contribute to hyperkalemia. I am concerned about possibility of intra-abdominal tissue necrosis related with acute pancreatitis. We will get her CAT scan repeated today to assess for pancreatic pseudocyst. Her hyperkalemia is being treated with one dose of Kayexalate 15 grams and electrolytes will be checked again tomorrow. 3. Acute pancreatitis. The patient remains quite tender and distended. A CAT scan is being repeated today to assess. She is tolerating an oral diet, but does get significant pain after eating. 4. Hypertension. Blood pressure is reasonably well-controlled on current medications and no changes are being made today. 5. Disposition. I feel that it is not prudent to discharge her today as her kidney function is essentially unchanged and she remains at risk for requiring dialysis. She also has hyperkalemia and significant abdominal discomfort with acute pancreatitis.
[2019-11-06 11:38] VITALS: BP 161/88
[2019-11-06] MEDS ORDERED: PEG1POW PO (11:53)
[2019-11-06] MEDS ORDERED: AMLO10TA5 PO (11:53)
[2019-11-06] MEDS ORDERED: RISATAB3 PO (11:53)
[2019-11-06] MEDS ORDERED: ASPI81TAEC PO (11:53)
[2019-11-06] MEDS ORDERED: SIME80TA PO (11:53)
[2019-11-06] MEDS ORDERED: FERR32TA PO (11:53)
[2019-11-06] MEDS ORDERED: CEFU50TA PO (11:53)
[2019-11-06] MEDS ORDERED: PERCOCET PO (11:53)
[2019-11-06] MEDS ORDERED: FURO40TA2 PO (11:53)
--- NOTE | 2019-11-06 17:36 | IPN ---
DATE OF VISIT: 11/06/2019 Mrs. Rowan seen this morning on her bedside. She is feeling better, and abdominal pain keeps coming back after she eats. She denies any dyspnea or chest pain. She had a repeat CAT scan of abdomen and pelvis done yesterday which did show bilateral pleural effusions and small amount of ascites. She has a pancreatic stent placed and being treated for acute pancreatitis. She has known history polycystic kidney disease and no hydronephrosis noticed. She has developed acute renal failure superimposed on chronic kidney disease due to acute pancreatitis. On physical exam, temperature 98.3 degrees Fahrenheit, heart rate 78 per minute and respiratory rate 18 per minute. Blood pressure 160/88 mmHg, and oxygen saturation 95% on room air. Head is atraumatic. Neck supple and without jugular venous distention (JVD) or thyroid enlargement. Heart sounds are regular, and lungs with diminished breath sounds at bases bilaterally. Abdomen soft and tender in right upper quadrant and epigastric area. Bowel sounds are present. Extremities without any cyanosis or clubbing. Neurologically, she is awake, alert, and oriented times three. Today's labs show WBC count 10.3, hemoglobin 8.6, and hematocrit 28.1. Platelets 629. Sodium 138, potassium 5.2, CO2 22, BUN 44, and creatinine 3.26. Glucose 138 and calcium 8.4. PROBLEMS: 1. Acute kidney injury superimposed on chronic kidney disease. Her creatinine peaked at 3.85 on November 03. Yesterday, her creatinine was down to 3.64, and today it is down further to 3.26. The patient has no uremic symptoms, and I am optimistic that her kidney function will now continue to improve. There is no emergent need for dialysis, and she will followup as outpatient in the office. 2. Hyperkalemia. Slightly improved with dose of Kayexalate yesterday, and I am going to resume her diuretic. Her electrolytes will be monitored as an outpatient. 3. Acute pancreatitis. No significant change in the pancreatic anatomy on the CT scan. She still has pain after eating and continues with pain medications. She will followup with gastrointestinal (GI). 4. Disposition. From a renal standpoint, the patient can be discharged to home today and followup in the office in 3 days. I have resumed her diuretic with Lasix 40 mg twice a day in view of pleural effusions and hyperkalemia.
--- NOTE | 2019-11-06 20:30 | DS.PDOC ---
Discharge Summary General Date of Admission Oct 21, 2019 at 23:22 Date of Discharge 11/06/2019 Discharge Summary PRIMARY CARE PHYSICIAN: Dr. Evan Saldana MD ATTENDING AT TIME OF DISCHARGE: Dr. Smith Maldonado, DISCHARGE DIAGNOS(E)S: Acute oliguric kidney injury superimposed on chronic kidney disease Acute hypoxic respiratory failure Acute diastolic CHF exacerbation with bilateral pleural effusions Hypertension Polycystic kidney disease Metabolic acidosis Hyperkalemia Acute pancreatitis Coronary artery disease Hematuria Diabetes mellitus type 2 Leukocytosis and Elevated CRP Transaminitis Iron deficiency anemia, likely also has some aspect of anemia of chronic disease Abdominal aortic aneurysm, infrarenal fusiform. Chronic, followed outpatient by PCP. HPI & HOSPITAL COURSE: Patient was originally admitted to [facility] for chest pain, however she was transferred to [facility] on 10/22/2019 because of BRIGITTE, requiring nephrology consult. Her chest pain essentially had resolved on her first day, the rest of her admission is as follows: She does have a history of polycystic kidney disease, therefore it was determined that she likely has chronic kidney disease, and she developed acute renal failure due to use of Toradol. She was treated for acute oliguric BRIGITTE, hyperkalemia, and metabolic acidosis with fluids and bicarbonate drip. During her stay she developed worsening abdominal pain, leukocytosis, and transaminitis. An MRCP was performed which showed pancreatic duct dilation, with a suspected etiology of stricture versus mass, therefore gastroenterology was consulted, they performed an ERCP, and placed a biliary stent at the site of stenosis in the head of the pancreas. Cells were collected at the time of ERCP, pathology report from the common bile duct brushing was noted to be satisfactory for evaluation, and negative for malignancy, described as benign ductal cells. Because of the patient's worsening leukocytosis and pain, infectious disease consult was ordered. She was empirically put on Zosyn, however infectious disease specialist switches over to meropenem as this was more appropriate for severe pancreatitis. Pancreatitis slowly improved, leukocytosis improved, her pain was controlled using opioids, antibiotics were switched to PO. She is now tolerating oral intake, she does continue to have some mild pain, but is overall significantly improved, and at this point it appears to be safe for her to convalesce at home. Regarding her kidney function, she has an unknown baseline, and continues to have a GFR of only approximately 15. She will require close follow-up with nephrology, but at this point she does not require hemodialysis. PHYSICAL EXAMINATION ON DISCHARGE: GENERAL: Awake, alert, she is not in any acute distress. CARDIOVASCULAR EXAMINATION: Regular rate and rhythm, with no rubs, gallops, or murmur. RESPIRATORY EXAMINATION: Clear to auscultation bilaterally with no wheezes, rales, or rhonchi. ABDOMINAL EXAMINATION: Soft, nontender, nondistended. Mildly tender throughout. Bowel sounds present. EXTREMITIES: No clubbing or edema noted. 2+ pulses in the radial bilaterally. DISPOSITION: Discharge home. DISCHARGE INSTRUCTIONS: Follow-up with Dr. Cordoba in 3 days. Activity as tolerated. Renal diet. If symptoms return, or if you experience worsening of your symptoms, please call your doctor or return to the emergency department. DISCHARGE MEDICATIONS: Continue taking from home: Albuterol as needed for shortness of breath/wheezing Atorvastatin 20 mg by mouth daily at bedtime Clopidogrel 75 mg by mouth daily Metoprolol tartrate 25 mg by mouth daily Pantoprazole 40 mg by mouth twice a day Januvia 100 mg by mouth daily New Medications: Amlodipine 10 mg daily Aspirin 81 mg daily Cefuroxime Axetil 500mg Daily (Renally Dosed) x 7 more days Ferrous gluconate 324 mg by mouth twice a day Furosemide 40 mg by mouth twice a day at 0 900, 1700 (increased from 40 mg daily) Acidophilus 1 tablet by mouth twice a day with meals Oxycodone/acetaminophen 5-325 one tablet by mouth every 4 hours when necessary pain Polyethylene glycol 1 packet by mouth twice a day Simethicone 80 mg by mouth 3 times a day when necessary for gas pain Stop Taking: Aspirin 325 mg daily Vital Signs/I&Os Vital Signs Date Time Temp Pulse Resp B/P (MAP) Pulse Ox O2 Delivery O2 Flow Rate FiO2 11/06/19 11:38 98.3 77 18 161/88 95 Room Air 90.0 I&O- Last 24 Hours up to 6 AM 11/06/19 06:00 Intake Total 2055 ml Output Total 400 ml Balance 1655 ml Laboratory Data Labs 24H Laboratory Tests 2 11/06/19 06:14: Immature Granulocyte % (Auto) 0.8, Neutrophils (%) (Auto) 72.5H, Lymphocytes (%) (Auto) 12.6L, Monocytes (%) (Auto) 9.1H, Eosinophils (%) (Auto) 4.4H, Basophils (%) (Auto) 0.6, Neutrophils # (Auto) 7.5, Lymphocytes # (Auto) 1.3L, Monocytes # (Auto) 0.9H, Eosinophils # (Auto) 0.5, Basophils # (Auto) 0.1, Nucleated Red Blood Cells % (auto) 0.0, Anion Gap 9, Glomerular Filtration Rate 15.2L, Calcium Level 8.4L, Magnesium Level 2.1, Total Bilirubin 0.1L, Aspartate Amino Transf (AST/SGOT) 19, Alanine Aminotransferase (ALT/SGPT) 21, Alkaline Phosphatase 164H, Total Protein 6.5, Albumin 1.9L, Albumin/Globulin Ratio 0.4L, Lipase 581H 11/06/19 11:23: Bedside Glucose (Misc Panel) 187H CBC/BMP Laboratory Tests 11/06/19 06:14 FSBS Laboratory Tests Test 11/06/19 11:23 Range/Units Bedside Glucose (Misc Panel) 187 80-115 MG/DL Microbiology Microbiology 10/28/19 Urine Culture - Final, Complete 10/27/19 Blood Culture - Final, Complete NO GROWTH AFTER 5 DAYS 10/27/19 Blood Culture - Final, Complete NO GROWTH AFTER 5 DAYS Discharge Medications Scheduled Amlodipine Besylate (Amlodipine Besylate) 10 Mg Tablet, 10 MG PO DAILY Aspirin (Aspirin EC) 81 Mg Tablet.dr, 81 MG PO DAILY Atorvastatin Calcium (Atorvastatin Calcium) 20 Mg Tablet, 20 MG PO QHS, (Reported) Cefuroxime Axetil (Cefuroxime) 500 Mg Tablet, 500 MG PO DAILY Clopidogrel Bisulfate (Clopidogrel) 75 Mg Tablet, 75 MG PO DAILY, (Reported) Ferrous Gluconate (Ferrous Gluconate) 324 Mg Tablet, 324 MG PO BID Furosemide (Furosemide) 40 Mg Tablet, 40 MG PO BID@09,17 L.acidoph/L.bulg/B.bif/S.therm (Birgit-Bid Caplet) 1 Each Tablet, 1 EA PO BIDWM Metoprolol Tartrate (Metoprolol Tartrate) 25 Mg Tablet, 25 MG PO DAILY, (Reported) Pantoprazole Sodium (Pantoprazole Sodium) 40 Mg Tablet.dr, 40 MG PO BID, (Reported) Polyethylene Glycol 3350 (Polyethylene Glycol 3350) 17 Gm Powd.pack, 1 PKT PO BID Sitagliptin Phosphate (Januvia) 100 Mg Tablet, 100 MG PO DAILY, (Reported) Scheduled PRN Albuterol Sulfate (Proair Hfa) 8.5 Gm Hfa.aer.ad, 2 PUFF INH TIDP PRN for SOB/WHEEZING, (Reported) Ipratropium/Albuterol Sulfate (Iprat-Albut 0.5-3(2.5) mg/3 ml) 3 Ml Ampul.neb, 1 VIAL NEB TID PRN for SHORTNESS OF BREATH, (Reported) Oxycodone/Acetaminophen (Oxycodone-Acetaminophen 5-325) 1 Each Tablet, 1 TAB PO Q4HP PRN for MILD/MODERATE PAIN (PS 1-7) Simethicone (Simethicone) 80 Mg Tab.chew, 80 MG PO TIDP PRN for GAS PAIN Allergies Coded Allergies: prochlorperazine (Verified Allergy, Severe, tongue swelling, facial spasms, throat tightness, 01/02/19) sumatriptan (Verified Adverse Reaction, Intermediate, rapid HR, diaphoretic, 01/02/19) SMITH MALDONADO DO Nov 06, 2019 20:30
== END 2019-11-06 15:35 | disposition home or self-care (01) | DRG 682 ==
LOC: M PCU 23:22 → M MSPAV 10-23 17:53
PROVIDERS: ADMIT Internal Medicine; ATTEND Neuromusculoskeletal Medicine & OMM
PROC: 0F798DZ Dilation of Common Bile Duct with Intraluminal Device, Via Natural or Artificial Opening Endoscopic (ICD-10-PCS; 2019-10-29)
PROC: 0FB98ZX Excision of Common Bile Duct, Via Natural or Artificial Opening Endoscopic, Diagnostic (ICD-10-PCS; principal; 2019-10-29 15:45)
DX: N17.9 Acute kidney failure, unspecified (principal); K83.1 Obstruction of bile duct; J96.01 Acute respiratory failure with hypoxia; I50.33 Acute on chronic diastolic (congestive) heart failure; K85.90 Acute pancreatitis without necrosis or infection, unspecified; Q61.3 Polycystic kidney, unspecified; E87.2 Acidosis; J90 Pleural effusion, not elsewhere classified; I13.0 Hypertensive heart and chronic kidney disease with heart failure and stage 1 through stage 4 chronic kidney disease, or unspecified chronic kidney disease; I31.3 Pericardial effusion (noninflammatory); E11.22 Type 2 diabetes mellitus with diabetic chronic kidney disease; E78.5 Hyperlipidemia, unspecified; J44.9 Chronic obstructive pulmonary disease, unspecified; F17.200 Nicotine dependence, unspecified, uncomplicated; N28.1 Cyst of kidney, acquired; E87.5 Hyperkalemia; D63.1 Anemia in chronic kidney disease; D72.829 Elevated white blood cell count, unspecified; N18.4 Chronic kidney disease, stage 4 (severe); E66.9 Obesity, unspecified; T39.8X5A Adverse effect of other nonopioid analgesics and antipyretics, not elsewhere classified, initial encounter; I71.4 Abdominal aortic aneurysm, without rupture; N12 Tubulo-interstitial nephritis, not specified as acute or chronic; R31.9 Hematuria, unspecified; K44.9 Diaphragmatic hernia without obstruction or gangrene; R74.8 Abnormal levels of other serum enzymes; K86.89 Other specified diseases of pancreas; D50.9 Iron deficiency anemia, unspecified; Z90.49 Acquired absence of other specified parts of digestive tract; Z11.59 Encounter for screening for other viral diseases; Z68.34 Body mass index [BMI] 34.0-34.9, adult; Z95.5 Presence of coronary angioplasty implant and graft; Z79.82 Long term (current) use of aspirin; Z79.899 Other long term (current) drug therapy; Z88.8 Allergy status to other drugs, medicaments and biological substances

== ENCOUNTER → 2019-11-08 | Outpatient (REF) | payer MEDICARE, OTHER ==
[~2019-11-08] MED LIST changes: +ACID1TAB PO; +AMLO10TA5 PO; +ASPI81TAEC PO; +CEFU50TA PO; +ECOT81TA5 PO; +FERR32TA PO; +FURO20TA2 PO; +IPRA0.00 NEB; +MIRA3350 PO; +OXYC1TAB23 PO; +PEG1POW PO; +PERCOCET PO; +RISATAB3 PO; +SIME80TA PO; +TUMS500C PO
[2019-11-08 17:51] LABS: PERCENT SATURATION 19.3 % (13.2-45.0)
== END ==
LOC: M LAB REF 16:46
PROVIDERS: ATTEND Internal Medicine Nephrology
DX: N18.9 Chronic kidney disease, unspecified (principal); D63.1 Anemia in chronic kidney disease

== ENCOUNTER → 2020-02-25 | Outpatient (REF) | payer MEDICARE, OTHER ==
[~2020-02-25] MED LIST changes: -AMLO10TA5 PO; +AMLO1TAB25 PO; +PANT40TA29 PO; -PANT40TA3 PO
[2020-02-25 18:33] LABS: PERCENT SATURATION 13.1 % (13.2-45.0)
== END ==
LOC: M LAB REF 17:20
PROVIDERS: ATTEND Internal Medicine Nephrology
DX: D64.9 Anemia, unspecified (principal)

== ENCOUNTER → 2020-02-27 | Outpatient (CLI) | payer MEDICARE, OTHER ==
--- NOTE | 2020-02-27 14:57 | REP ---
INDICATION: CKD IV, AVF PLACEMENT COMPARISON: None. TECHNIQUE: Real time compression and duplex Doppler evaluation of the Bilateral upper extremity deep venous system is performed. FINDINGS: The Bilateral subclavian, jugular, axillary, brachial, basilic and cephalic veins are fully compressible where accessible with transducer pressure, and demonstrate no intraluminal thrombus and normal venous waveforms. There is no evidence of deep venous thrombosis. Right: Basilic vein size (mm)/ Cephalic vein size (mm) Upper humerus: 6 /3 Lower humerus: 6/4 Upper forearm: 3/2 Lower forearm/wrist: 2/1 Median cubital: 4 Right arterial structures: Peak systolic velocity (cm/s)/waveform/size (mm) Axillary: 66/triphasic/7 Brachial: 72/triphasic/4 Radial: 68/triphasic/3 Ulnar: 76/triphasic/2 Left: Basilic vein size (mm)/ Cephalic vein size (mm) Upper humerus: 4/3 Lower humerus: 3/3 Upper forearm: 3/2 Lower forearm/wrist: 2/2 Median cubital: 2 Left arterial structures: Peak systolic velocity (cm/s)/waveform/size (mm) Axillary: 56/triphasic/7 Brachial: 78/triphasic/5 Radial: 84/triphasic/3 Ulnar: 33/triphasic/1 IMPRESSION: No evidence of deep venous thrombosis of the Bilateral upper extremity deep vein system. Arterial and venous sizes are given above. <Electronically signed by Smith Call > 02/27/20 [id number]
== END ==
LOC: M RAD 12:15
PROVIDERS: ATTEND Internal Medicine Nephrology
DX: N18.5 Chronic kidney disease, stage 5 (principal); I50.32 Chronic diastolic (congestive) heart failure; E11.22 Type 2 diabetes mellitus with diabetic chronic kidney disease; M79.605 Pain in left leg

== ENCOUNTER 2020-03-12 10:47 | Outpatient (CLI) | payer MEDICARE, OTHER ==
[~2020-03-12] VITALS: Ht 165.1 cm; Wt 79.3 kg
[2020-03-12 11:00] VITALS: BP 150/78
[2020-03-12] MEDS ORDERED: EPINEPHrine INJ 1 MG/ML 1ML AMP IM PRN (11:15)
[2020-03-12] MEDS ORDERED: methylPREDNISolone 125MG 2ML VIAL IV PRN (11:15)
[2020-03-12] MEDS ORDERED: NS 1,000 ML IV SCH (11:15)
[2020-03-12] MEDS ORDERED: FERRIC CARBOXYMALTOSE INJ 750 MG in NS 250 ML IV ONE (11:15)
[2020-03-12] MEDS ORDERED: diphenhydrAMINE 50MG/ML VIAL (J1200) IV PRN (11:15)
[2020-03-12] MEDS ORDERED: ALBUTEROL SULFATE 2.5 MG/0.5 ML INH NEB SOLN INH PRN (11:15)
[2020-03-12 11:36] LABS: HEMATOCRIT 28.4 % (36.0-47.0); HEMOGLOBIN 8.7 g/dl (12.0-15.5)
[2020-03-12 12:16] LABS: PERCENT SATURATION 8.6 % (13.2-45.0)
[2020-03-12 12:30] VITALS: BP 137/72
[2020-03-12 14:10] VITALS: BP 150/75
[2020-03-12 14:25] VITALS: BP 154/75
== END 2020-03-12 14:25 | disposition home or self-care (01) ==
LOC: M INFU 10:47
PROVIDERS: ATTEND Internal Medicine Nephrology
DX: D64.9 Anemia, unspecified (principal); Z88.8 Allergy status to other drugs, medicaments and biological substances
CPT/HCPCS: 82728; 83550; 85014; 85018; 96365; 96366; J1439

== ENCOUNTER 2020-03-20 13:10 | Outpatient (CLI) | payer MEDICARE, OTHER ==
[~2020-03-20] VITALS: Ht 165.1 cm; Wt 79.3 kg
[~2020-03-20 13:10] MED LIST changes: +ALBUTEROL SULFATE 2.5 MG/0.5 ML INH NEB SOLN INH PRN; +EPINEPHrine INJ 1 MG/ML 1ML AMP IM PRN; +FERRIC CARBOXYMALTOSE INJ 750 MG in NS 250 ML IV ONE; +NS 1,000 ML IV SCH; +diphenhydrAMINE 50MG/ML VIAL (J1200) IV PRN; +methylPREDNISolone 125MG 2ML VIAL IV PRN
[2020-03-20 13:52] VITALS: BP 147/71
[2020-03-20 14:30] VITALS: BP 158/69
[2020-03-20 15:45] VITALS: BP 155/74
== END 2020-03-20 15:45 | disposition home or self-care (01) ==
LOC: M INFU 13:10
PROVIDERS: ATTEND Internal Medicine Nephrology
DX: D64.9 Anemia, unspecified (principal); Z88.8 Allergy status to other drugs, medicaments and biological substances
CPT/HCPCS: 96365; 96366; J1439

== ENCOUNTER → 2020-04-12 | Outpatient (CLI) | payer MEDICARE, OTHER ==
[~2020-04-12] MED LIST changes: +ACET300T52; -ALBUTEROL SULFATE 2.5 MG/0.5 ML INH NEB SOLN INH PRN; +CALC1CAP; +DICY20TA11; -EPINEPHrine INJ 1 MG/ML 1ML AMP IM PRN; +FERR325T3 PO; -FERRIC CARBOXYMALTOSE INJ 750 MG in NS 250 ML IV ONE; +HYDR-3910; +META58.68 PO; -NS 1,000 ML IV SCH; +POTA20TA6; +SODI325T9; -diphenhydrAMINE 50MG/ML VIAL (J1200) IV PRN; -methylPREDNISolone 125MG 2ML VIAL IV PRN
== END ==
LOC: M LABSMTC 09:59
PROVIDERS: ATTEND Anesthesiology
DX: Z01.812 Encounter for preprocedural laboratory examination (principal); Z20.828 Contact with and (suspected) exposure to other viral communicable diseases

== ENCOUNTER 2020-04-17 09:56 | Day surgery (SDC) | payer MEDICARE, OTHER ==
[~2020-04-17] VITALS: Ht 165.1 cm; Wt 73.4 kg
[~2020-04-17 09:56] MED LIST changes: +D5W/0.2% SODIUM CHLORIDE 1,000 ML IV ONE; +LIDOCAINE 2% 100MG/5ML SDV (FOR ANES.) As Ordered ONE; +MIDAZOLAM INJ 2MG/2ML VIAL (J2250 PER 1MG) As Ordered ONE; +MIDAZOLAM INJ 2MG/2ML VIAL (J2250 PER 1MG) IV PRN; +ONDANSETRON 4MG/2ML VIAL As Ordered ONE; +ceFAZolin SOD 2 GM in IV 1 EA IV ONE; +fentaNYL 100 MCG/2 ML INJECTION (J3010) As Ordered ONE; +fentaNYL 100 MCG/2 ML INJECTION (J3010) IV PRN; +propofoL 200 MG/20 ML VIAL As Ordered ONE
[2020-04-17] MEDS ORDERED: LIDOCAINE 1% SDV 30ML VIAL As Ordered ONE (09:57)
[2020-04-17] MEDS ORDERED: HEPARIN SOD (PORCINE) 5000UNITS/ML 1ML VIAL/SYRINGE As Ordered ONE (09:58)
[2020-04-17] MEDS ORDERED: FURO20TA2 PO (10:26)
[2020-04-17] MEDS ORDERED: MIDAZOLAM INJ 2MG/2ML VIAL (J2250 PER 1MG) As Ordered ONE (11:03)
[2020-04-17] MEDS ORDERED: fentaNYL 100 MCG/2 ML INJECTION (J3010) As Ordered ONE (11:03)
[2020-04-17] MEDS ORDERED: ROPIvacaine 0.5% 30ML INJECTION (J2795 PER 1MG) As Ordered ONE (11:07)
[2020-04-17] MEDS ORDERED: dexameTHASONE 4 MG/ML 1ML VIAL (J1100 PER 1MG) As Ordered ONE (11:07)
[2020-04-17] MEDS ORDERED: LIDOCAINE 1% MDV 20ML VIAL As Ordered ONE (11:07)
[2020-04-17] MEDS ORDERED: LIDOCAINE 1% MDV 20ML VIAL XX ONE ×2 (11:15→11:30)
[2020-04-17] MEDS ORDERED: ROPIvacaine 0.5% 30ML INJECTION (J2795 PER 1MG) XX ONE ×2 (11:15→11:30)
[2020-04-17] MEDS ORDERED: METOPROLOL TART 25 MG TABLET PO ONE (11:15)
[2020-04-17] MEDS: MIDAZOLAM INJ 2MG/2ML VIAL (J2250 PER 1MG) IV PRN ×2 (11:25→11:30)
[2020-04-17] MEDS ORDERED: ACETAMINOPHEN 1000MG 100ML IV BTL (OFIRMEV) (J0131 PER 10MG) As Ordered ONE (12:04)
--- NOTE | 2020-04-17 13:15 | ROOPDOC ---
[facility] Report Of Operation Report of Operation DATE OF PROCEDURE: 04/17/20 PREPROCEDURE DIAGNOSES: Renal insufficiency requiring access for dialysis POSTPROCEDURE DIAGNOSES: Same PROCEDURE: Right brachiocephalic AV fistula creation SURGEON: Benja Sanford MD ANESTHESIA: Monitored anesthesia care and right scalene nerve block and local anesthesia INDICATION FOR PROCEDURE: This is a very pleasant 64-year-old patient with stage IV renal insufficiency requiring AV access for dialysis in the future. Risks benefits and alternatives to a right brachial cephalic AV fistula creation versus a brachial basilic AV fistula creation, depending on intraoperative findings, or do best with the patient at length and she was agreeable to proceed. Informed consent was obtained. REPORT OF OPERATION: The patient was brought to the OR in stable condition after right scalene nerve block was placed by our anesthesia colleagues in preop holding. Monitored anesthesia care and antibiotics were administered without complication. Her right upper extremity was prepped and draped in a sterile fashion. A timeout was performed. Local anesthesia was administered to the skin and subcutaneous tissue over the brachial artery pulse one fingerbreadths distal to the antecubital crease. An incision was made transversely and carried down to the subcutaneous tissues with Bovie cautery. The cephalic vein was identified and skeletonized proximally and distally within the incision. Distally, to branch points were suture ligated, divided and A larger patch for anastomosis. We then past 3 serial dilators through the vein, 3 mm, 3.5 mm, 4 mm, and the dilators passed easily. We then flushed with heparinized saline and a bulldog clamp was placed. We then dissected down to the brachial artery which was skeletonized proximally and distally within the incision. Vesseloops were placed proximally and distally. We secured the Vesseloops and a 5 mm arteriotomy was made in the vein was then anastomosed to the artery in an end-to-side fashion with 6-0 Prolene suture. For the spinal sutures are placed, we flushed inflow and outflow of the artery again irrigated with heparinized saline through the vein. The final sutures were placed and flow was restored through the vein and the inflow artery, then outflow to the hand. Good hemostasis was noted. Doppler confirm good flow through the fistula, as well as a strong Doppler signal at the palmar arch with and without compression of the fistula. The hand was warm and pink and there was a radial pulse palpable. We irrigated with saline and then the deep tissues were approximated with [id number] 2-0 Vicryl sutures. The dermal layer was approximated with 4-0 Vicryl suture. The skin was closed with a running subcuticular Monocryl suture. The incision was cleaned and dried. Mastisol and Steri-Strips were placed length of the incision. A 4 x 4 and Tegaderm were placed as a final dressing and a sling was placed to protect the arm until the extremity motor and sensory function returned to baseline. The patient was then taken recovery in stable condition. ESTIMATED BLOOD LOSS: Approximately 10 mL. COMPLICATIONS: none. PLAN: Resume preprocedure diet and medications. Will see the patient back in a week to check her incision and her fistula. Use a squeeze ball in the right upper extremity to help mature fistula. No strenuous exercise or lifting greater than 10 pounds for 1 week until incision is completely healed. Try to keep Steri-Strips intact for 1 week to help the incision heal, but it's okay to remove the Tegaderm and gauze after 48 hours. We appreciate the opportunity to participate in the care of this patient. BENJA SANFORD MD Apr 17, 2020 13:15
[2020-04-17] MEDS ORDERED: OXYC1TAB23 PO (13:18)
[2020-04-17 13:52] VITALS: BP 157/78
== END 2020-04-17 14:13 | disposition home or self-care (01) ==
LOC: M SDC 09:56
PROVIDERS: ATTEND Surgery Vascular Surgery
DX: N18.4 Chronic kidney disease, stage 4 (severe) (principal); E11.22 Type 2 diabetes mellitus with diabetic chronic kidney disease; I12.9 Hypertensive chronic kidney disease with stage 1 through stage 4 chronic kidney disease, or unspecified chronic kidney disease; I25.10 Atherosclerotic heart disease of native coronary artery without angina pectoris; I25.2 Old myocardial infarction; I50.9 Heart failure, unspecified; I71.4 Abdominal aortic aneurysm, without rupture; D64.9 Anemia, unspecified; E78.00 Pure hypercholesterolemia, unspecified; F17.210 Nicotine dependence, cigarettes, uncomplicated; G43.909 Migraine, unspecified, not intractable, without status migrainosus; J44.9 Chronic obstructive pulmonary disease, unspecified; K21.9 Gastro-esophageal reflux disease without esophagitis; K44.9 Diaphragmatic hernia without obstruction or gangrene; R06.83 Snoring; R60.0 Localized edema; I69.998 Other sequelae following unspecified cerebrovascular disease; M12.9 Arthropathy, unspecified; Z79.82 Long term (current) use of aspirin; Z79.899 Other long term (current) drug therapy; Z88.8 Allergy status to other drugs, medicaments and biological substances; Z90.710 Acquired absence of both cervix and uterus; Z95.5 Presence of coronary angioplasty implant and graft
CPT/HCPCS: 36415; 36821; 84132; J0131; J0690; J1644; J2250; J2405; J3010

== ENCOUNTER 2020-04-30 15:59 | Emergency (ER) | payer MEDICARE, OTHER ==
[~2020-04-30] VITALS: Ht 165.1 cm; Wt 75.2 kg
[~2020-04-30 15:59] MED LIST changes: -D5W/0.2% SODIUM CHLORIDE 1,000 ML IV ONE; -LIDOCAINE 2% 100MG/5ML SDV (FOR ANES.) As Ordered ONE; -MIDAZOLAM INJ 2MG/2ML VIAL (J2250 PER 1MG) As Ordered ONE; -MIDAZOLAM INJ 2MG/2ML VIAL (J2250 PER 1MG) IV PRN; -ONDANSETRON 4MG/2ML VIAL As Ordered ONE; -ceFAZolin SOD 2 GM in IV 1 EA IV ONE; -fentaNYL 100 MCG/2 ML INJECTION (J3010) As Ordered ONE; -fentaNYL 100 MCG/2 ML INJECTION (J3010) IV PRN; -propofoL 200 MG/20 ML VIAL As Ordered ONE
[2020-04-30] MEDS ORDERED: LABETALOL 100MG/20ML VIAL IV STA (16:14)
[2020-04-30] MEDS ORDERED: ASPIRIN 81 MG CHEW TABLET PO ONE (16:15)
[2020-04-30] MEDS ORDERED: WELLTAB38 PO (16:18)
[2020-04-30] MEDS ORDERED: CALC1CAP31 PO (16:22)
--- NOTE | 2020-04-30 16:43 | REP ---
INDICATION: CHEST PAIN. COMPARISON: 11/24/2019. TECHNIQUE: SINGLE PORTABLE AP VIEW OF THE CHEST WAS PERFORMED. FINDINGS: Mild cardiomegaly is again noted. The mediastinal silhouette is unchanged. Chronic pleural and parenchymal scarring in the right base is unchanged. There is no acute infiltrate. IMPRESSION: NO ACUTE PULMONARY DISEASE.Stable chronic findings and mild cardiomegaly. <Electronically signed by Smith Call > 04/30/20 1525
[2020-04-30 16:47] VITALS: BP 180/90
[2020-04-30 16:47] LABS: BASO # 0.1 10^3/uL (0.0-0.2); BASO % 0.6 % (0.0-1.0); EOS # 0.2 10^3/uL (0.0-0.5); EOS % 1.7 % (0.0-3.0); HEMATOCRIT 34.2 % (36.0-47.0); HEMOGLOBIN 10.3 g/dl (12.0-15.5); LYMPH # 1.5 10^3/uL (1.5-5.0); MEAN CORPUSCULAR HEMOGLOBIN 27.6 pg (27.0-33.0); MEAN CORPUSCULAR HGB CONC 30.1 g/dl (32.0-36.5); MEAN CORPUSCULAR VOLUME 91.7 fl (80.0-96.0); MONO # 0.9 10^3/uL (0.0-0.8); MONO % 8.2 % (0.0-5.0); NEUTROPHILS # 7.9 10^3/uL (1.5-8.5); NEUTROPHILS % 75.2 % (36.0-66.0); PLATELET COUNT, AUTOMATED 358 10^3/uL (150-450); RED BLOOD COUNT 3.73 10^6/uL (4.00-5.40); WHITE BLOOD COUNT 10.5 10^3/uL (4.0-10.0)
[2020-04-30 17:02] LABS: ALBUMIN 1.9 GM/DL (3.2-5.2); ALT/SGPT 10 U/L (12-78); BILIRUBIN,DIRECT < 0.1 MG/DL (0.0-0.2); BILIRUBIN,TOTAL 0.1 MG/DL (0.2-1.0); BLOOD UREA NITROGEN 21 MG/DL (7-18); CARBON DIOXIDE LEVEL 19 MEQ/L (21-32); CHLORIDE LEVEL 112 MEQ/L (98-107); CK-MB VALUE MASS 1.7 NG/ML (<3.6); CPK CREATINE PHOSPHOKINASE 33 U/L (26-192); CREATININE FOR GFR 2.19 MG/DL (0.55-1.30); GLUCOSE, FASTING 86 MG/DL (70-100); MB/CK RELATIVE INDEX 5.15 (< OR =4); POTASSIUM SERUM 4.5 MEQ/L (3.5-5.1); SODIUM LEVEL 138 MEQ/L (136-145); TROPONIN I < 0.02 NG/ML (< 0.10)
[2020-04-30 17:03] LABS: INR 1.07; PROTHROMBIN TIME 14.1 SECONDS (12.5-14.3)
[2020-04-30] MEDS ORDERED: MORPHINE 2 MG/ML 1ML VIAL (J2270) IV ONE (17:30)
[2020-04-30] MEDS ORDERED: ISOVUE-370 76% 100ML VIAL As Ordered ONE (17:32)
--- NOTE | 2020-04-30 18:46 | REPVR ---
PROCEDURE INFORMATION: Exam: CT Abdomen And Pelvis With Contrast Exam date and time: 04/30/2020 5:48 PM Age: 64 years old Clinical indication: Abdominal pain; Additional info: Aaa TECHNIQUE: Imaging protocol: Computed tomography of the abdomen and pelvis with intravenous contrast. 3D rendering (Not supervised by radiologist): MIP and/or 3D reconstructed images were created by the technologist. Radiation optimization: All CT scans at this facility use at least one of these dose optimization techniques: automated exposure control; mA and/or kV adjustment per patient size (includes targeted exams where dose is matched to clinical indication); or iterative reconstruction. Contrast material: ISO 370; Contrast volume: 100 ml; Contrast route: INTRAVENOUS (IV); COMPARISON: CT ABD PELVIS W/O CONTRAST 11/24/2019 9:35 PM FINDINGS: Heart: Cardiomegaly. Liver: Normal. No mass. Gallbladder and bile ducts: There has been a cholecystectomy. Pancreas: There is mild pancreatic atrophy associated with mild dilatation of the pancreatic duct measuring up to 4.8 mm in the pancreatic neck. No obstructing mass demonstrated. Spleen: Normal. No splenomegaly. Adrenal glands: There is bilateral adrenal hyperplasia. Kidneys and ureters: There are multiple simple bilateral renal cysts measuring up to 4.2 cm in the lower pole of the left kidney and 2.3 cm in the lateral aspect of the left kidney. Stomach and bowel: Increased fluid demonstrated in the colon suggesting diarrhea to be clinically correlated. Multiple dilated loops of small bowel consistent with a diffuse ileus or small-bowel obstruction. No significant bowel wall enhancement to suggest enteritis. Appendix: No evidence of appendicitis. Intraperitoneal space: See "Pancreas" finding. Vasculature: There is an infrarenal abdominal aortic aneurysm measuring 4.2 cm in maximum AP dimensions extending craniocaudad for 6.8 cm. Finding is unchanged in comparison to the prior study of 11/24/2019. No significant periaortic inflammatory changes. Atherosclerotic changes demonstrated in both iliac arteries without evidence of an aneurysm or high-grade stenosis. Lymph nodes: Unremarkable. No enlarged lymph nodes. Urinary bladder: Unremarkable as visualized. Reproductive: There has been a hysterectomy. Bones/joints: Moderate to severe central spinal stenosis L4-L5. Bulging annulus L5-S1 without spinal stenosis. Mild central spinal stenosis L3-L4. Soft tissues: Unremarkable. IMPRESSION: 1. Cardiomegaly. 2. There has been a cholecystectomy. 3. There is mild pancreatic atrophy associated with mild dilatation of the pancreatic duct measuring up to 4.8 mm in the pancreatic neck. No obstructing mass demonstrated. 4. There is bilateral adrenal hyperplasia. 5. Multiple bilateral simple renal cysts substantially unchanged in comparison to the prior study of 11/24/2019. 6. There is an infrarenal abdominal aortic aneurysm measuring 4.2 cm in maximum AP dimensions extending craniocaudad for 6.8 cm. Finding is unchanged in comparison to the prior study of 11/24/2019. 7. There has been a hysterectomy. 8. Increased fluid demonstrated in the colon suggesting diarrhea to be clinically correlated. 9. Multiple dilated loops of small bowel consistent with a diffuse ileus or small-bowel obstruction. No significant bowel wall enhancement to suggest enteritis. COMMENTS: Consistent with the [employer]'s Incidental Findings Committee white paper (J Am Tricia Radiol 2018): Any incidental renal lesion less than 1 cm or classified as too small to characterize, or any incidental cystic renal lesion characterized as simple-appearing, is likely benign. No follow-up imaging is recommended for these lesions per consensus recommendations based on imaging criteria. Electronically signed by: Nathan Quinones On 04/30/2020 18:46:28 PM
[2020-04-30 19:15] VITALS: BP 175/92
--- NOTE | 2020-05-02 07:32 | ECGEPIP ---
[facility] - ED Test Date: 2020-04-30 Pat Name: FLEX LUGO Department: Room: - Gender: Female Restaurant Inspector: sadi : 1955 Requested By: DIAMOND BALDERRAMA Order Number: [id number] Reading MD: Kindra Burrell Measurements Intervals [place] Rate: 94 P: 37 IL: 136 QRS: 12 QRSD: 85 T: 118 QT: 367 QTc: 459 Interpretive Statements SINUS RHYTHM POSSIBLE LEFT ATRIAL ENLARGEMENT NONSPECIFIC T-WAVE ABNORMALITY DECREASED RATE 11/24/19 Electronically Signed on 05-02-2020 7:32:04 EST by Kindra Burrell
--- NOTE | 2020-05-02 14:06 | ED PDOC ---
Post-Departure Follow-Up radiology repor tfaxed to Kindra Hawkins MD May 02, 2020 14:06
== END 2020-04-30 19:17 | disposition home or self-care (01) ==
LOC: M ED 15:59
DX: R19.7 Diarrhea, unspecified (principal); N18.9 Chronic kidney disease, unspecified; R10.9 Unspecified abdominal pain; I12.9 Hypertensive chronic kidney disease with stage 1 through stage 4 chronic kidney disease, or unspecified chronic kidney disease; J44.9 Chronic obstructive pulmonary disease, unspecified; Z79.899 Other long term (current) drug therapy; Z79.82 Long term (current) use of aspirin; Z88.8 Allergy status to other drugs, medicaments and biological substances; Z95.5 Presence of coronary angioplasty implant and graft
CPT/HCPCS: 71045; 74177; 80048; 80076; 82550; 82553; 84484; 85025; 85610; 93005; 93041; 94760; 96374; 96375; 99285; J2270; Q9967

== ENCOUNTER → 2020-07-20 | Outpatient (CLI) | payer MEDICARE, OTHER ==
[~2020-07-20] MED LIST changes: +ASPI-569 PO; -ASPI81TAEC PO; +CALC1CAP31 PO; +CREO3000 PO; -PEG1POW PO; +POLY17PO18 PO; +SIME80CH5 PO; -SIME80TA PO; -SODI325T9; +SODI325T9 PO; +WELLTAB38 PO
== END ==
LOC: M LABSMTC 11:15
PROVIDERS: ATTEND Anesthesiology
DX: Z01.812 Encounter for preprocedural laboratory examination (principal); Z20.822 Contact with and (suspected) exposure to COVID-19

== ENCOUNTER 2020-07-25 05:58 | Day surgery (SDC) | payer MEDICARE, OTHER ==
[~2020-07-25] VITALS: Ht 165.1 cm; Wt 70.3 kg
[2020-07-25] MEDS ORDERED: LIDOCAINE 1% MDV 20ML VIAL SQ PRN (06:00)
[2020-07-25] MEDS ORDERED: LR 1,000 ML IV ONE (07:00)
[2020-07-25] MEDS ORDERED: ceFAZolin SOD 2 GM in IV 1 EA IV ONE (07:00)
[2020-07-25] MEDS ORDERED: MIDAZOLAM INJ 2MG/2ML VIAL (J2250 PER 1MG) IV PRN (07:01)
[2020-07-25] MEDS ORDERED: fentaNYL 100 MCG/2 ML INJECTION (J3010) IV PRN (07:01)
[2020-07-25] MEDS ORDERED: MIDAZOLAM INJ 2MG/2ML VIAL (J2250 PER 1MG) As Ordered ONE (07:07)
[2020-07-25] MEDS ORDERED: LIDOCAINE 2% 100MG/5ML SDV (FOR ANES.) As Ordered ONE (07:07)
[2020-07-25] MEDS ORDERED: propofoL 200 MG/20 ML VIAL As Ordered ONE (07:07)
[2020-07-25] MEDS ORDERED: fentaNYL 100 MCG/2 ML INJECTION (J3010) As Ordered ONE (07:07)
[2020-07-25] MEDS ORDERED: ONDANSETRON 4MG/2ML VIAL As Ordered ONE (07:08)
[2020-07-25] MEDS ORDERED: dexameTHASONE 4 MG/ML 1ML VIAL (J1100 PER 1MG) As Ordered ONE (07:08)
[2020-07-25] MEDS ORDERED: BUPIVACAINE/EPIN 0.25% 30 ML VIAL As Ordered ONE (07:11)
[2020-07-25] MEDS ORDERED: LIDOCAINE 1% SDV 30ML VIAL As Ordered ONE (07:11)
[2020-07-25] MEDS ORDERED: HEPARIN SOD (PORCINE) 5000UNITS/ML 1ML VIAL/SYRINGE As Ordered ONE (07:11)
[2020-07-25] MEDS ORDERED: EPINEPHrine INJ 1 MG/ML 1ML AMP XX ONE (07:15)
[2020-07-25] MEDS ORDERED: BUPIVACAINE HCL 0.5% 30 ML VIAL XX ONE (07:15)
[2020-07-25] MEDS ORDERED: BUPIVACAINE/EPIN 0.5% 30 ML VIAL As Ordered ONE (07:15)
[2020-07-25] MEDS ORDERED: OXYC1TAB23 PO (09:23)
--- NOTE | 2020-07-25 09:32 | ROOPDOC ---
[facility] Report Of Operation Report of Operation DATE OF PROCEDURE: 07/25/20 PREPROCEDURE DIAGNOSES: Renal insufficiency requiring access for dialysis POSTPROCEDURE DIAGNOSES: Same PROCEDURE: Right brachial basilic AV fistula creation SURGEON: Benja Sanford MD ANESTHESIA: MAC, nerve block, local anesthesia INDICATION FOR PROCEDURE: This is a very pleasant 64-year-old patient with renal insufficiency requiring access for dialysis. Risks benefits and alternatives to a right brachial basilic AV fistula were explained to the patient and she is agreeable to proceed. Informed consent was obtained. REPORT OF OPERATION: Patient was brought to the operating room in stable condition after right upper extremity nerve block was placed by our anesthesia colleagues in preop holding. Monitored anesthesia care and antibiotics were administered without complication. Her right upper extremity was prepped and draped in a sterile fashion. A timeout was performed. Ultrasound was used to map the basilic vein proximal to the antecubital crease as well as the brachial artery. Local anesthesia was administered to the skin and subcutaneous tissue. A transverse incision was made 1 cm proximal to the antecubital crease across these markings. This is carried down to the subcutaneous tissues with Bovie cautery. We identified the medial branch of the basilic vein, and it was a very small, and also the main basilic vein. The main basilic vein was large enough that I felt we could mobilize it medially towards the brachial artery and it would work well for AV fistula. We dissected the vein proximally and distally within the incision. We went pretty far distal toward the antecubital crease and found to branch point. We suture ligated both of the branch points and transected the vein there. We then connected the branch points to make a larger patch for anastomosis. We past 3 dilators, a 3 mm, 3.5 mm, 4 mm without difficulty. We flushed with heparinized saline. We then dissected down to the brachial artery and this was skeletonized proximally and distally within the incision. At this level, there was no significant atherosclerotic disease noted in the artery. We then gave 3000 units of heparin, allowed this to circulate, and secured the Vesseloops. A 5 mm arteriotomy was made and the vein was anastomosed to the artery and an end-to-side fashion, tension-free, with 6-0 Prolene suture. Before the final sutures are placed, we flushed inflow and outflow artery and irrigated with heparinized saline. We then placed the final sutures are restored flow to the vein and the inflow artery, and then to the hand. Good hemostasis was noted. There was an excellent thrill and the fistula. There is a palpable radial artery pulse in the hand was warm and well-perfused. We irrigated with saline. The deep tissues were approximated with 2-0 Vicryl suture. The deep dermal layer was approximated with interrupted 4-0 Vicryl suture. The skin was closed in running subcuticular Monocryl suture. Mastisol and Steri-Strips replace the length of the incision. A 4 x 4 and Tegaderm were placed as a final dressing. The patient tolerated this well and was then taken to recovery in stable condition. ESTIMATED BLOOD LOSS: Approximately 25 mL. COMPLICATIONS: None. PLAN: We will see the patient back in a week to check her incision and fistula. No lifting greater than 5 pounds, no strenuous exercise for 1 week. Eventually, we will need to do a transposition to mobilize the vein on top of the bicep, once the fistula has matured. We appreciate the opportunity to participate in the care of this patient. BENJA SANFORD MD Jul 25, 2020 09:32
[2020-07-25] MEDS ORDERED: ELIQ2.5T PO (10:05)
[2020-07-25 10:40] VITALS: BP 156/81
== END 2020-07-25 10:40 | disposition home or self-care (01) ==
LOC: M SDC 05:58
PROVIDERS: ATTEND Surgery Vascular Surgery
DX: T82.590A Other mechanical complication of surgically created arteriovenous fistula, initial encounter (principal); N18.4 Chronic kidney disease, stage 4 (severe); E11.9 Type 2 diabetes mellitus without complications; E78.00 Pure hypercholesterolemia, unspecified; F17.210 Nicotine dependence, cigarettes, uncomplicated; G43.909 Migraine, unspecified, not intractable, without status migrainosus; G47.30 Sleep apnea, unspecified; I11.0 Hypertensive heart disease with heart failure; I25.10 Atherosclerotic heart disease of native coronary artery without angina pectoris; I25.2 Old myocardial infarction; I50.9 Heart failure, unspecified; I71.4 Abdominal aortic aneurysm, without rupture; K21.9 Gastro-esophageal reflux disease without esophagitis; K44.9 Diaphragmatic hernia without obstruction or gangrene; J44.9 Chronic obstructive pulmonary disease, unspecified; R06.83 Snoring; Z79.82 Long term (current) use of aspirin; Z79.899 Other long term (current) drug therapy; Z86.2 Personal history of diseases of the blood and blood-forming organs and certain disorders involving the immune mechanism; Z86.73 Personal history of transient ischemic attack (TIA), and cerebral infarction without residual deficits; Z88.8 Allergy status to other drugs, medicaments and biological substances; Z90.710 Acquired absence of both cervix and uterus; Z95.1 Presence of aortocoronary bypass graft
CPT/HCPCS: 36821; J0690; J1644; J2250; J2405; J3010

== ENCOUNTER → 2020-11-13 | Outpatient (REF) | payer MEDICARE, OTHER ==
[~2020-11-13] MED LIST changes: +ELIQ2.5T PO
[2020-11-13 20:08] LABS: FERRITIN 194 NG/ML (8-252); IRON (FE) 40 UG/DL (50-170); MAGNESIUM LEVEL 2.1 MG/DL (1.8-2.4); PERCENT SATURATION 17.2 % (13.2-45.0); TOTAL IRON BINDING CAPACITY 233 UG/DL (250-450)
[2020-11-19 13:56] LABS: HEPATITIS B SURFACE ANTIBODY NEGATIVE (POSITIVE)
[2020-11-19 14:07] LABS: HEPATITIS B SURFACE ANTIGEN NEGATIVE (NEGATIVE)
[2020-11-19 14:36] LABS: HEPATITIS B CORE ANTIBODY IGM NEGATIVE (NEGATIVE)
== END ==
LOC: M LAB REF 16:52
PROVIDERS: ATTEND Internal Medicine Nephrology
DX: D50.9 Iron deficiency anemia, unspecified (principal); N18.5 Chronic kidney disease, stage 5; I12.0 Hypertensive chronic kidney disease with stage 5 chronic kidney disease or end stage renal disease

== ENCOUNTER 2020-12-04 13:07 | Inpatient (IN) | payer MEDICARE, OTHER ==
[~2020-12-04] VITALS: Ht 165.1 cm; Wt 69.5 kg
[~2020-12-04 13:07] MED LIST changes: -ACET300T52 PO; -ALBU8.5H INH; -ASPI81TA26 PO; -ATOR40TA75 PO; -CALC1CAP PO; -CITA20TA6 PO; -FERR1TAB8 PO; -HYDR-3911 PO; -ISOS1TAB36 PO; -LEVE500T5 PO; -LIDOCAINE 1% MDV 20ML VIAL As Ordered ONE; -LIDOCAINE W/EPINEPHRINE 1% 20ML VIAL As Ordered ONE; -MELA5CAP2 PO; -METO1TAB7 PO; -NITR0.4S14 SL; -SITA50TAB PO; -SUCR1TAB56 PO
[2020-12-04] MEDS ORDERED: LIDOCAINE 2% MDV 20ML VIAL SC ONE (13:55)
--- NOTE | 2020-12-04 14:52 | REP ---
INDICATION: leukocytosis. COMPARISON: None. TECHNIQUE: Comparison portable chest x-ray April 20, 2020. FINDINGS: Patient is rotated somewhat to the right for the current exposure. EKG monitoring electrodes overlie the chest. Heart is enlarged. There is evidence of coronary artery stent material. Pleural angles are sharp. Pulmonary vasculature is slightly cephalized. IMPRESSION: Patient is rotated somewhat to the right. No definite infiltrate. Cardiomegaly with cephalization of the vasculature.. <Electronically signed by Bobby Ortiz > 12/04/20 [id number]
[2020-12-04] MEDS ORDERED: ALBU8.5H INH (15:54)
[2020-12-04] MEDS ORDERED: AMLO1TAB25 PO (15:54)
[2020-12-04] MEDS ORDERED: CLOP75TA2 PO (15:54)
[2020-12-04] MEDS ORDERED: CITA20TA6 PO (15:54)
[2020-12-04] MEDS ORDERED: CALC1CAP PO (15:54)
[2020-12-04] MEDS ORDERED: SUCR1TAB56 PO (15:54)
[2020-12-04] MEDS ORDERED: MELA5CAP2 PO (15:54)
[2020-12-04] MEDS ORDERED: HYDR-3911 PO (15:54)
[2020-12-04] MEDS ORDERED: NITR0.4S14 SL (15:54)
[2020-12-04] MEDS ORDERED: ASPI81TA26 PO (15:54)
[2020-12-04] MEDS ORDERED: ATOR40TA75 PO (15:54)
[2020-12-04] MEDS ORDERED: ACET300T52 PO (15:54)
[2020-12-04] MEDS ORDERED: SITA50TAB PO (15:54)
[2020-12-04] MEDS ORDERED: MIRA3350 PO (15:54)
[2020-12-04] MEDS ORDERED: ISOS1TAB36 PO (15:54)
[2020-12-04] MEDS ORDERED: METO1TAB7 PO (15:54)
[2020-12-04] MEDS ORDERED: FERR1TAB8 PO (15:54)
[2020-12-04] MEDS ORDERED: FURO40TA2 PO (15:54)
[2020-12-04] MEDS ORDERED: PANT40TA29 PO (15:54)
[2020-12-04] MEDS ORDERED: SODI325T9 PO (15:54)
[2020-12-04] MEDS ORDERED: CREO3000 PO (15:54)
[2020-12-04] MEDS ORDERED: LEVE500T5 PO (15:54)
[2020-12-04] MEDS ORDERED: CALC1CAP31 PO (15:54)
[2020-12-04 17:15] LABS: RSV AMPLIFICATION NEGATIVE (NEGATIVE)
[2020-12-04] MEDS ORDERED: ALBUTEROL 90 MCG/ACT 8GM HFA INHALER INH PRN (18:15)
[2020-12-04] MEDS ORDERED: MIRALAX *UNIT DOSE* 17GM PACKET PO PRN (18:15)
[2020-12-04] MEDS ORDERED: NITROGLYCERIN 0.4 MG SUBL TABLET SL PRN (18:15)
[2020-12-04] MEDS ORDERED: GLUCOSE 4GM CHEW TABLET PO PRN (19:00)
[2020-12-04] MEDS ORDERED: DEXTROSE 50% 50 ML SYRINGE IV PRN (19:00)
[2020-12-04] MEDS ORDERED: GLUCAGON INJ 1MG VIAL SC PRN (19:00)
--- NOTE | 2020-12-04 19:03 | HPEPDOC ---
General Date of Admission Dec 04, 2020 at 18:10 Date of Service: Dec 04, 2020 Chief Complaint The patient is a 64-year-old female admitted with a reason for visit of Ckd Stagev Requiring Chronic Dialysis,Hyperkalemia. Source: Patient History of Present Illness Mrs. Rowan is a 64 year old female with polycystic kidney disease, NIDDM, and CAD s/p stents who is here with abnormal labs. She has ESRD and has decided on dialysis. She was seeing Dr. Singer in office for Permacath placement, but labs demonstrated leukocytosis (WBC 15) and hyperkalemia (K 5.5). Patient was sent to the ED for evaluation. Patient was found to have a pilonidal cyst which was suspected to be the cause of leukocytosis. It was lanced. When I saw patient, she was feeling well. Denies fever, chest pain, worsening dyspnea, worsening abdominal pain, diarrhea, or dysuria. She has chronic dyspnea and abdominal pain (from hernia) unchanged from prior. I reached out to Nephrology who will see the patient. Patient will be admitted for CKD stage V, hyperkalemia, and skin/soft tissue infection. Home Medications Scheduled Amlodipine Besylate (Amlodipine Besylate) 10 Mg Tablet, 10 MG PO QHS, (Reported) Aspirin (Aspirin EC) 81 Mg Tablet.dr, 81 MG PO DAILY, (Reported) Atorvastatin Calcium (Atorvastatin Calcium) 40 Mg Tablet, 40 MG PO QHS, (Reported) Calcitriol (Calcitriol) 0.25 Mcg Capsule, 0.25 MCG PO DAILY, (Reported) Calcium Acetate (Calcium Acetate) 667 Mg Capsule, 667 MG PO WM, (Reported) Citalopram Hydrobromide (Citalopram HBr) 20 Mg Tablet, 20 MG PO DAILY, (Reported) Clopidogrel Bisulfate (Clopidogrel) 75 Mg Tablet, 75 MG PO DAILY, (Reported) Ferrous Sulfate (Ferrous Sulfate) 325 Mg Tablet, 325 MG PO DAILY, (Reported) Furosemide (Furosemide) 40 Mg Tablet, 40 MG PO BID, (Reported) TAKES MORNING AND AFTERNOON Hydralazine HCl (Hydralazine HCl) 50 Mg Tablet, 50 MG PO BID, (Reported) Isosorbide Mononitrate (Isosorbide Mononitrate ER) 60 Mg Tab.er.24h, 60 MG PO DAILY, (Reported) Lipase/Protease/Amylase (Creon Dr 3,000 Units Capsule) 1 Each Capsule.dr, 1 CAP PO WM, (Reported) Melatonin (Melatonin) 5 Mg Capsule, 5 MG PO QHS, (Reported) Metoprolol Succinate (Metoprolol Succinate) 50 Mg Tab.er.24h, 50 MG PO DAILY, (Reported) Pantoprazole Sodium (Pantoprazole Sodium) 40 Mg Tablet.dr, 40 MG PO BID, (Reported) Sitagliptin (Januvia) 50 Mg Tablet, 50 MG PO DAILY, (Reported) Sodium Bicarbonate (Sodium Bicarbonate) 325 Mg Tablet, 325 MG PO WM, (Reported) Sucralfate (Sucralfate) 1 Gm Tablet, 1 GM PO AC, (Reported) levETIRAcetam (levETIRAcetam) 500 Mg Tablet, 500 MG PO BID, (Reported) Scheduled PRN Acetaminophen with Codeine (Acetaminophen-Cod #4 Tablet) 1 Each Tablet, 1 TAB PO Q4H PRN for PAIN LEVEL 5-10, (Reported) Albuterol Sulfate (Albuterol Sulfate Hfa) 8.5 Gm Hfa.aer.ad, 1 PUFF INH QID PRN for SOB/WHEEZING, (Reported) Nitroglycerin (Nitroglycerin) 0.4 Mg Tab.subl, 0.4 MG SL Q5MP PRN for CHEST PAIN, (Reported) Polyethylene Glycol 3350 (Miralax) 119 Gm Powder, 17 GM PO DAILY PRN for CONSTIPATION, (Reported) dilute in 8 ounces of water or juice Allergies Coded Allergies: prochlorperazine (Verified Allergy, Severe, tongue swelling, facial spasms, throat tightness, 07/11/20) sumatriptan (Verified Adverse Reaction, Intermediate, rapid HR, diaphoretic, 07/11/20) Past Medical History Medical History 1. Polycystic kideny disease 2. CAD s/p stent 3. Hypertension 4. Dyslipidemia 5. NIDDM type 2 6. COPD 7. Iron deficiency 8. GERD Surgical History 1. Coronary stent placement 2. Appendectomy 3. Cholecystectomy 4. Hysterectomy 5. Bilateral shoulder repair 6. Bilateral axilla cyst resection 7. Right breast cyst Family History Father: Does not know biologic father. She has step father Mother: She was an alcoholic. History of DM and HBP Social History * Smoker: current smoker (Attempting to quit. Weaned down to 4cig a day) Alcohol: Denies Drugs: denies A-FIB/CHADSVASC A-FIB History Current/History of A-Fib/PAF?: No Review of Systems Constitutional: Denies: Chills, Fever Eyes: Denies: Vision change ENT: Denies: Sore Throat Skin: Reports: Other (pilonidal cyst) Pulmonary: Reports: Dyspnea (Chronic dyspnea not worse than normal) Cardiovascular: Denies: Chest Pain Gastrointestinal: Reports: Abdominal Pain (Chronic pain from hiatal hernia not worse than before); Denies: Nausea, Diarrhea Genitourinary: Denies: Dysuria Hematologic: Denies: Bruising Neurological: Denies: Numbness Psych: Denies: Anxiety, Depression Physical Examination General Exam: Positive: Alert, Cooperative Eye Exam: Positive: EOMI; Negative: Sclera icteric ENT Exam: Positive: Atraumatic Neck Exam: Positive: Supple Chest Exam: Positive: Rales (mild) Heart Exam: Positive: Bradycardic, Regular Rhythm Abdomen Exam: Positive: Normal bowel sounds, Soft; Negative: Tenderness Extremity Exam: Positive: Edema (mild bilateral pitting edema) Skin Exam: Positive: Lesion (Erythema around where pilonidal cyst was lanced) Neuro Exam: Positive: Normal Speech, Cranial Nerves 3-12 NL Psych Exam: Positive: Mental status NL, Mood NL Vital Signs Vital Signs Date Time Temp Pulse Resp B/P (MAP) Pulse Ox O2 Delivery O2 Flow Rate FiO2 12/04/20 18:00 57 163/73 (103) 95 12/04/20 13:37 98.1 17 Room Air Laboratory Data Labs 24H Laboratory Tests 2 12/04/20 16:22: Coronavirus (COVID-19)(PCR) NEGATIVE, Influenza Type A (RT-PCR) NEGATIVE, Influenza Type B (RT-PCR) NEGATIVE, Respiratory Syncytial Virus (PCR) NEGATIVE Microbiology Microbiology 12/04/20 Blood Culture, Received Pending Assessment/Plan Mrs. Rowan is a 64 year old female with polycystic kidney disease, NIDDM, and CAD s/p stents who is here with abnormal labs. Patient was to have Permacath inserted today, but then found to have leukocytosis and hyperkalemia. Patient will be given Kayexalate for hyperkalemia. Suspecting the pilonidal cyst to have caused leukocytosis. It was lanced, but ED provider did not have the equipment at bedside for culture. Blood culture was obtained instead. Patient will be started on ceftaroline Plan / VTE VTE Prophylaxis Ordered?: Yes Plan Plan 1. ESRD requiring dialysis -Patient will need a Permacath for dialysis -Nephrology consulted, recommendations appreciated 2. Hyperkalemia -Secondary to ESRD -Patient will be given Kayexalate -Monitor on telemetry 3. Skin/soft tissue infection -Patient had pilonidal cyst -It was lanced, but did not have equipment at bedside for culture -Blood culture x2 obtained -Ceftaroline 4. NIDDM -Hold Januvia -Start Sliding scale insulin 5. COPD -Stable, not in exacerbation -Continue albuterol as needed 6. Hypertension -Continue amlodipine, hydralazine, Imdur, Toprol XL 7. CAD s/p stent -Continue aspirin, clopidogrel, atorvastatin, Toprol XL, Imdur 8. Anxiety/Depression -Continue citalopram 9. Iron deficiency anemia -Continue ferrous sulfate 10. GERD -Continue Pantoprazole and Carafate 11. Insomnia -Continue ramelteon 12. DVT ppx -Patient would need a Permacath. No chemical ppx -SCD and TEDs Disposition: Pending placement of Permacath KEVIN BECKHAM DO Dec 04, 2020 19:03
[2020-12-04] MEDS ORDERED: SOD POLYSTYRENE SULFONATE SUSP 15 GM/60 ML UD PO ONE (20:00)
[2020-12-04] MEDS: HumaLOG INSULIN (NovoLOG) PER UNIT SC SCH (21:00)
[2020-12-04 21:23] VITALS: BP 142/58
[2020-12-04] MEDS: **hydrALAZINE** 50 MG TAB PO SCH (21:50)
[2020-12-04] MEDS: PANTOPRAZOLE 40MG TAB (PROTONIX) PO SCH (21:50)
[2020-12-04] MEDS: RAMELTEON 8 MG TAB (ROZEREM) PO SCH (21:50)
[2020-12-04] MEDS: ATORVASTATIN 20 MG TAB PO SCH (21:50)
[2020-12-04] MEDS: CEFTAROLINE FOSAMIL 200 MG in D5W 50 ML IV SCH (22:32)
[2020-12-05] VITALS: BP 154/70
[2020-12-05 04:00] VITALS: BP 157/71
[2020-12-05 04:03] LABS: HEMATOCRIT 28.5 % (36.0-47.0); HEMOGLOBIN 8.9 g/dl (12.0-15.5); MEAN CORPUSCULAR HEMOGLOBIN 29.8 pg (27.0-33.0); MEAN CORPUSCULAR HGB CONC 31.2 g/dl (32.0-36.5); MEAN CORPUSCULAR VOLUME 95.3 fl (80.0-96.0); PLATELET COUNT, AUTOMATED 329 10^3/uL (150-450); RED BLOOD COUNT 2.99 10^6/uL (4.00-5.40); WHITE BLOOD COUNT 10.8 10^3/uL (4.0-10.0)
[2020-12-05 04:24] LABS: CALCIUM LEVEL 7.5 MG/DL (8.8-10.2); CREATININE FOR GFR 3.63 MG/DL (0.55-1.30); GLOMERULAR FILTRATION RATE 13.4 (>45); MAGNESIUM LEVEL 2.2 MG/DL (1.8-2.4); POTASSIUM SERUM 5.2 MEQ/L (3.5-5.1)
--- NOTE | 2020-12-05 04:27 | ECGEPIP ---
[facility] [place] - ED Test Date: 2020-12-04 Pat Name: FLEX LUGO Department: Room: [facility] Gender: Female Curriculum Assistant Principal: ED : 1955 Requested By: KIARA Guardado Order Number: [id number] Reading MD: Scott Conn Measurements Intervals [place] Rate: 52 P: 60 CO: 154 QRS: 22 QRSD: 90 T: 76 QT: 492 QTc: 457 Interpretive Statements Sinus bradycardia NONSPECIFIC T WAVE ABNORMALITY(S) SIMILAR TO 04/30/20 Electronically Signed on 12-05-2020 4:26:31 EDT by Scott Conn
[2020-12-05] MEDS: HumaLOG INSULIN (NovoLOG) PER UNIT SC SCH ×4 (07:27→21:00)
[2020-12-05 08:00] VITALS: BP 153/69
[2020-12-05] MEDS: CREON-12 CAPSULE PO SCH ×3 (08:26→17:25)
[2020-12-05] MEDS: SODIUM BICARBONATE 325 MG TAB PO SCH ×3 (08:27→17:25)
[2020-12-05] MEDS: ASPIRIN 81MG ENTERIC TABLET PO SCH (08:27)
[2020-12-05] MEDS: CALCIUM ACETATE 667MG GELCAP PO SCH ×3 (08:27→17:25)
[2020-12-05] MEDS: **hydrALAZINE** 50 MG TAB PO SCH ×2 (08:28→21:24)
[2020-12-05] MEDS: FERROUS SULFATE 325MG TAB PO SCH (08:28)
[2020-12-05] MEDS: METOPROLOL SUCC (TopROL XL) 50MG **XL** TAB PO SCH (08:28)
[2020-12-05] MEDS: CitaloPRAM (CeleXA) 20 MG TAB PO SCH (08:28)
[2020-12-05] MEDS: CLOPIDOGREL 75 MG TAB PO SCH (08:29)
[2020-12-05] MEDS: ISOSORBIDE MON. (IMDUR) 60 MG XR TAB PO SCH (08:29)
[2020-12-05] MEDS: PANTOPRAZOLE 40MG TAB (PROTONIX) PO SCH ×2 (08:29→21:24)
[2020-12-05] MEDS: CALCITRIOL 0.25 MCG CAP (S0169) PO SCH (08:29)
[2020-12-05] MEDS: SUCRALFATE 1 GM TAB PO SCH ×3 (08:29→17:25)
[2020-12-05] MEDS: FUROSEMIDE 40 MG TAB PO SCH ×2 (08:30→17:25)
[2020-12-05] MEDS ORDERED: SOD POLYSTYRENE SULFONATE SUSP 15 GM/60 ML UD PO ONE (09:00)
[2020-12-05] MEDS: ACETAMINOPH W/CODEINE #3 TAB UD PO PRN ×2 (09:59→15:54)
[2020-12-05] MEDS: CEFTAROLINE FOSAMIL 200 MG in D5W 50 ML IV SCH ×2 (10:24→21:23)
[2020-12-05 12:00] VITALS: BP 144/67
--- NOTE | 2020-12-05 12:41 | IPNPDOC ---
Subjective Date Seen The patient was seen on 12/05/20. Subjective Chief Complaint/HPI Mrs. Rowan is a 64 year old female with polycystic kidney disease, NIDDM, and CAD s/p stents who is here with abnormal labs. This morning, she denies any chest pain or dyspnea. Leukocytosis has improved. Potassium trending downwards, but given another dose of Kayexalate. Nephrology following, recommendations appreciated. Nephrology consulted vascular surgery for placement of Permacath Objective Physical Examination General Exam: Positive: Alert, Cooperative Eye Exam: Positive: EOMI; Negative: Sclera icteric ENT Exam: Positive: Atraumatic Neck Exam: Positive: Supple Chest Exam: Positive: Rales (mild) Heart Exam: Positive: Bradycardic, Regular Rhythm Abdomen Exam: Positive: Normal bowel sounds, Soft; Negative: Tenderness Extremity Exam: Positive: Edema (mild bilateral pitting edema) Skin Exam: Positive: Lesion (Erythema around where pilonidal cyst was lanced) Neuro Exam: Positive: Normal Speech, Cranial Nerves 3-12 NL Psych Exam: Positive: Mental status NL, Mood NL Assessment /Plan Assessment Mrs. Rowan is a 64 year old female with polycystic kidney disease, NIDDM, and CAD s/p stents who is here with abnormal labs. Patient was to have Permacath inserted today, but then found to have leukocytosis and hyperkalemia. Suspecting the pilonidal cyst to have caused leukocytosis. It was lanced, but ED provider did not have the equipment at bedside for culture. Blood culture was obtained instead. Patient is started on ceftaroline and leukocytosis has been improving. Nephrology consulted, recommendations appreciated. Vascular surgery was consulted for placement of Permacath. Plan/VTE VTE Prophylaxis Ordered?: Yes Plan 1. ESRD requiring dialysis -Patient will need a Permacath for dialysis -Nephrology consulted for dialysis -Vascular surgery consulted for PermaCath 2. Hyperkalemia -Secondary to ESRD -Monitor on telemetry -Patient given Kayexalate as needed 3. Skin/soft tissue infection -Patient had pilonidal cyst -It was lanced, but did not have equipment at bedside for culture -Blood culture x2 obtained -Ceftaroline day 2 4. NIDDM -Hold Januvia -Start Sliding scale insulin 5. COPD -Stable, not in exacerbation -Continue albuterol as needed 6. Hypertension -Continue amlodipine, hydralazine, Imdur, Toprol XL 7. CAD s/p stent -Continue aspirin, clopidogrel, atorvastatin, Toprol XL, Imdur 8. Anxiety/Depression -Continue citalopram 9. Iron deficiency anemia -Continue ferrous sulfate 10. GERD -Continue Pantoprazole and Carafate 11. Insomnia -Continue ramelteon 12. DVT ppx -Patient would need a Permacath. No chemical ppx -SCD and TEDs Disposition: Pending placement of Permacath VS, I&O, 24H, Fishbone Vital Signs/I&O Vital Signs Date Time Temp Pulse Resp B/P (MAP) Pulse Ox O2 Delivery O2 Flow Rate FiO2 12/05/20 12:00 97.8 55 18 144/67 (92) 96 Room Air I&O- Last 24 Hours up to 6 AM 12/05/20 06:00 Intake Total 350 ml Balance 350 ml Laboratory Data 24H LABS Laboratory Tests 2 12/04/20 16:22: Coronavirus (COVID-19)(PCR) NEGATIVE, Influenza Type A (RT-PCR) NEGATIVE, Influenza Type B (RT-PCR) NEGATIVE, Respiratory Syncytial Virus (PCR) NEGATIVE 12/04/20 21:49: Bedside Glucose (Misc Panel) 202H 12/05/20 03:45: Nucleated Red Blood Cells % (auto) 0.0, Anion Gap 8, Glomerular Filtration Rate 13.4L, Calcium Level 7.5L, Magnesium Level 2.2 12/05/20 11:43: Bedside Glucose (Misc Panel) 153H CBC/BMP Laboratory Tests 12/05/20 03:45 Microbiology Microbiology 12/04/20 Blood Culture, Received Pending 12/04/20 Blood Culture, Received Pending 12/04/20 Blood Culture, Received Pending KEVIN BECKHAM DO Dec 05, 2020 12:41
[2020-12-05] MEDS ORDERED: SLF 3 ML SYR IV PRN (13:00)
[2020-12-05] MEDS: SLF 3 ML SYR IV SCH ×2 (13:12→21:24)
[2020-12-05] MEDS ORDERED: LIDOCAINE 1% MDV 20ML VIAL As Ordered ONE ×2 (13:39→14:24)
[2020-12-05] MEDS ORDERED: MIDAZOLAM INJ 2MG/2ML VIAL (J2250 PER 1MG) As Ordered ONE (13:40)
[2020-12-05] MEDS ORDERED: fentaNYL 100 MCG/2 ML INJECTION (J3010) As Ordered ONE (13:40)
--- NOTE | 2020-12-05 15:19 | ROOPDOC ---
[facility] Report Of Operation Report of Operation DATE OF PROCEDURE: 12/05/2020 PREPROCEDURE DIAGNOSES: End-stage renal disease POSTPROCEDURE DIAGNOSES: End-stage renal disease PROCEDURE PERFORMED: 1. Permacath Placement 2. Ultrasound guided percutaneous entry SURGEON: Magen Singer MD ANESTHESIA: Local and sedation ESTIMATED BLOOD LOSS: Approximately 5 mL. COMPLICATIONS: None REMARKS: None FINDINGS: Tip of catheter in good position SPECIMENS REMOVED: N/A DESCRIPTION OF PROCEDURE: Patient was brought to the angio suite and placed on the operating table in supine position. After adequate anesthesia was administered, the patient's left neck and chest were prepped and draped in standard surgical fashion. Local anesthetic was administered along the anticipated route of the tunneled catheter. Using ultrasound guidance, percutaneous entry into the left IJ was performed using a micropuncture needle. Over guidewire exchange, a microsheath was placed and a Nitrex wire than passed into the SVC. A separate incision was made on the left anterior chest just below the clavicle and the dialysis catheter was tunneled from the anterior chest incision to the neck puncture site with the Josr cuff of the catheter located just below the clavicle. Under fluoroscopic guidance, a tear-away sheath was then placed over the wire and into the SVC. The catheter was then placed through the sheath with the tip located at the cavoatrial junction. The sheath was removed and both ports were tested for flow and then flushed with saline solution. IV Heparin was then instilled into both ports. A 2-0 Prolene suture was used to anchor the catheter to the chest and a 4-0 Monocryl suture to close the neck puncture site. Sterile dressings were then placed. MAGEN SINGER MD Dec 05, 2020 15:19
[2020-12-05 16:00] VITALS: BP 150/69
[2020-12-05] MEDS ORDERED: levETIRAcetam 250MG TABLET (KEPPRA) PO SCH (18:00)
[2020-12-05 20:00] VITALS: BP 163/72
[2020-12-05] MEDS: RAMELTEON 8 MG TAB (ROZEREM) PO SCH (21:23)
[2020-12-05] MEDS: ATORVASTATIN 20 MG TAB PO SCH (21:24)
[2020-12-05] MEDS: ACETAMINOPHEN TAB 650MG DOSE (2X325MG) PO PRN (22:44)
[2020-12-06] VITALS: BP 160/72
[2020-12-06] MEDS: ACETAMINOPH W/CODEINE #3 TAB UD PO PRN ×3 (00:47→13:25)
[2020-12-06] MEDS: ACETAMINOPHEN TAB 650MG DOSE (2X325MG) PO PRN (03:45)
[2020-12-06 04:00] VITALS: BP 155/70
[2020-12-06] MEDS: SLF 3 ML SYR IV SCH ×2 (04:43→13:08)
[2020-12-06 05:58] LABS: HEMATOCRIT 27.7 % (36.0-47.0); HEMOGLOBIN 8.9 g/dl (12.0-15.5); MEAN CORPUSCULAR HEMOGLOBIN 30.2 pg (27.0-33.0); MEAN CORPUSCULAR HGB CONC 32.1 g/dl (32.0-36.5); MEAN CORPUSCULAR VOLUME 93.9 fl (80.0-96.0); PLATELET COUNT, AUTOMATED 294 10^3/uL (150-450); RED BLOOD COUNT 2.95 10^6/uL (4.00-5.40); WHITE BLOOD COUNT 8.4 10^3/uL (4.0-10.0)
[2020-12-06 06:32] LABS: CALCIUM LEVEL 7.6 MG/DL (8.8-10.2); CREATININE FOR GFR 3.6 MG/DL (0.55-1.30); GLOMERULAR FILTRATION RATE 13.6 (>45); PERCENT SATURATION 21.2 % (13.2-45.0); POTASSIUM SERUM 5.1 MEQ/L (3.5-5.1)
[2020-12-06] MEDS: HumaLOG INSULIN (NovoLOG) PER UNIT SC SCH ×2 (07:30→12:00)
[2020-12-06 08:00] VITALS: BP 150/70
[2020-12-06] MEDS: SUCRALFATE 1 GM TAB PO SCH ×2 (08:02→13:08)
[2020-12-06] MEDS: CLOPIDOGREL 75 MG TAB PO SCH (08:02)
[2020-12-06] MEDS: CALCITRIOL 0.25 MCG CAP (S0169) PO SCH (08:02)
[2020-12-06] MEDS: CitaloPRAM (CeleXA) 20 MG TAB PO SCH (08:02)
[2020-12-06] MEDS: FERROUS SULFATE 325MG TAB PO SCH (08:02)
[2020-12-06] MEDS: CALCIUM ACETATE 667MG GELCAP PO SCH ×2 (08:02→13:08)
[2020-12-06] MEDS: PANTOPRAZOLE 40MG TAB (PROTONIX) PO SCH (08:02)
[2020-12-06] MEDS: CREON-12 CAPSULE PO SCH ×2 (08:03→13:08)
[2020-12-06] MEDS: ASPIRIN 81MG ENTERIC TABLET PO SCH (08:03)
[2020-12-06] MEDS: CEFTAROLINE FOSAMIL 200 MG in D5W 50 ML IV SCH (09:00)
--- NOTE | 2020-12-06 09:21 | CR ---
NEPHROLOGY CONSULTATION DATE: 12/05/2020 REASON FOR CONSULTATION: Dr. Benigno Nicole CONSULTING PHYSICIAN: Dr. Michelle Cordoba REASON FOR CONSULTATION: Chronic kidney disease stage 5, not yet on dialysis HISTORY OF PRESENT ILLNESS: Thong Rowan is previously unknown to me. She is a 64-year-old female office patient of Dr. Gaona with a past medical history of chronic kidney disease stage 5, not yet on hemodialysis, who has a fistula in the right arm which is not yet mature and was scheduled for permacath placement with Vascular Surgery this morning in anticipation of outpatient hemodialysis initiation on December 06. Preop labs were done by vascular surgeon and showed a white count of 15 and potassium of 5.5, and her permacath placement was canceled in view of leukocytosis of uncertain etiology and the patient was sent to the Emergency Room for further evaluation. She was subsequently found to have a pilonidal cyst which was lanced and she was started on IV Ceftaroline and white count did subsequently improve and the patient remains in the hospital awaiting dialysis access and initiation of hemodialysis. PAST MEDICAL HISTORY: The patient's past medical history is significant for: 1. Chronic kidney disease stage 5. 2. Non insulin dependent diabetes mellitus. 3. Coronary artery disease. 4. Chronic obstructive pulmonary disease. 5. Hypertension. 6. Dyslipidemia. 7. Secondary hyperparathyroidism of renal origin. 8. Anemia of chronic renal failure. PAST SURGICAL HISTORY: The patient's past surgical history is significant for: 1. Status post coronary artery stents. 2. Status post right brachial basilic AV fistula. 3. History of appendectomy. 4. History of endoscopy. 5. History of tympanostomy. ALLERGIES: 1. Sumatriptan. 2. Prochlorperazine. FAMILY HISTORY: The patient reports a family history of polycystic kidney disease and renal failure in her mother and both of her sisters. One sister was a kidney transplant recipient and the other sister was secondary to renal failure. HOME MEDICATIONS: 1. Albuterol p.r.n. 2. Amlodipine 10 mg p.o. q. h.s. 3. Aspirin 81 mg p.o. daily. 4. Atorvastatin 40 mg p.o. q. h.s. 5. Calcitriol 0.25 mcg p.o. daily. 6. PhosLo 667 mg p.o. with meals. 7. Citalopram 20 mg p.o. daily. 8. Plavix 75 mg p.o. daily. 9. Ferrous Sulfate 325 mg p.o. daily. 10. Lasix 40 mg p.o. twice daily. 11. Hydralazine 50 mg p.o. twice daily. 12. Isosorbide Mononitrate 60 mg p.o. daily. 13. Keppra 500 mg p.o. twice daily. 14. Creon one capsule p.o. with meals. 15. Melatonin 5 mg p.o. q. h.s. 16. Metoprolol 50 mg p.o. daily. 17. Protonix 40 mg p.o. twice daily. 18. Januvia 50 mg p.o. daily. 19. Sodium Bicarbonate 325 mg daily. 20. Carafate one gram p.o. with meals. REVIEW OF SYSTEMS: Constitutional: She denies fevers or chills. Eyes: She denies visual changes or tearing. ENT: She denies rhinorrhea or epistaxis. Cardiovascular: She has a history of coronary artery disease. She denies any chest pain or palpitations. Respiratory: She has chronic obstructive pulmonary disease. She denies cough or hemoptysis. Gastrointestinal: She denies nausea or vomiting or diarrhea. Genitourinary: She denies any dysuria or hematuria. Endocrine: She reports secondary hyperparathyroidism and non insulin dependent diabetes. Musculoskeletal: She denies gout or acute myalgias or arthralgias. Hematologic: She reports anemia. She denies anticoagulant use. Neurologic: She denies syncope or headaches. Skin: She reports a pilonidal cyst. She denies any new rashes. The remainder of review of systems is negative or as HPI. PHYSICAL EXAMINATION: VITAL SIGNS: Temperature 98.0, pulse 64, respiratory rate 18, blood pressure 163/72, saturating 95% on room air. Weight in the bed scale today is 69.3 kg. GENERAL APPEARANCE: The patient is seen awake, alert, oriented x3, interactive, conversational and in no distress. HEENT: The extraocular muscles are intact. Tongue is moist. NECK: Supple. Jugular veins are not elevated. HEART: Regular. S1, S2. There is no peripheral edema. There is no murmur. Radial pulses are 2+. ABDOMEN: Soft and nontender, positive bowel sounds. LUNGS: Symmetric air movement bilaterally. No rales. She is comfortable on room air. EXTREMITIES: Negative for edema or cyanosis. NEUROLOGIC: She is oriented, interactive and no focal deficits. PSYCHIATRIC: Appropriate mood and affect. LABORATORY STUDIES: Sodium 139, potassium 5.2, bicarbonate 21, BUN 57, creatinine 3.6, GFR 13, magnesium 2.2, hemoglobin 8.9, white count 10.8, down from 15 yesterday. Platelet count 329. Blood cultures no growth for 24 hours x3 sets. IMAGING: Chest x-ray done yesterday shows no infiltrate but there is some pulmonary vasculature cephalization but it is mild. Kidney ultrasound done November of 2019 showed bilateral benign cysts without any hydronephrosis. INPATIENT MEDICATIONS: 1. Ceftaroline 200 mg IV q. 12 hourly. 2. Tylenol p.r.n. 3. Albuterol p.r.n. 4. Amlodipine 10 mg p.o. q. h.s. 5. Aspirin 81 mg p.o. q. h.s. 6. Calcitriol 0.25 mcg p.o. daily. 7. PhosLo 667 mg p.o. with meals. 8. Celexa 20 mg p.o. daily. 9. Plavix 75 mg p.o. daily. 10. Ferrous Sulfate 325 mg p.o. daily. 11. Lasix 40 mg p.o. twice daily. 12. Hydralazine 50 mg p.o. twice daily. 13. Insulin. 14. Imdur 60 mg p.o. daily. 15. Keppra 1,000 mg p.o. at 6:00 p.m. daily. 16. Metoprolol 50 mg p.o. daily. 17. Creon with meals. 18. Protonix 40 mg p.o. twice daily. 19. Miralax p.r.n. 20. Rozerem 8 mg p.o. q. h.s. 21. Sodium Bicarbonate 325 mg p.o. three times daily. 22. Kayexalate 15 grams p.o. times one. 23. Carafate one gram p.o. with meals. PROBLEMS: 1. Chronic kidney disease stage 5 not yet on dialysis. The patient had a fistula placed in the right arm, however it is not ready for use. There was a plan for permacath placement yesterday as an outpatient, however it was canceled because of the patient's leukocytosis. She subsequently was found to have a pilonidal cyst which was lanced and she was treated with IV Ceftaroline. Her blood cultures returned back negative x3 sets. Subsequently I got in touch with Dr. Singer today for permacath placement and the plan is for initiation of hemodialysis with the first treatment to be done tomorrow, December 06. 2. Anemia of chronic renal failure iron panel is ordered with blood work tomorrow. The patient does have a history of gastritis and hemorrhoids. I reviewed her prior endoscopy report. Hemoglobin is suboptimal at 8.9. She will be started on erythropoietin stimulating agent with hemodialysis, and she will receive Venofer with dialysis as well if her iron panel indicates iron deficiency. 3. Hyperkalemia it will improve with hemodialysis. Plan is for first treatment tomorrow. 4. Hypertension - The patient is on a multi-drug regimen including Amlodipine, Hydralazine, Isosorbide, Metoprolol, and Lasix. Consideration can be given to starting an dustin or an ARB if needed for blood pressure control after hemodialysis has been successfully initiated. 5. Metabolic acidosis she is presently on sodium bicarbonate. This will be stopped once she is on hemodialysis treatment. 6. Secondary hyperparathyroidism of renal origin she continues on Calcitriol and PhosLo. 7. Leukocytosis most likely secondary to the pilonidal cyst that was drained. She is on Ceftaroline managed by the Primary Service. Her blood cultures did return back negative. 8. Diastolic congestive heart failure echocardiogram is reviewed from October 2019 which showed left ventricular ejection fraction 50% and grade 2 diastolic dysfunction. She is presently on Lasix and initiation of hemodialysis will also help chronic control of her volume status. Thank you for involving me in the care of Miss Rowan.
[2020-12-06] MEDS ORDERED: DARBEPOETIN 100 MCG/0.5 ML *DIALYSIS* SYRINGE (J0882) IV SCH (11:20)
[2020-12-06] MEDS ORDERED: IRON SUCROSE 100MG 5ML VIAL (J1756 PER 1MG) IV SCH (11:20)
[2020-12-06] MEDS ORDERED: DOXY100C PO (12:37)
[2020-12-06] MEDS ORDERED: LEVE500T5 PO (12:37)
[2020-12-06 12:53] VITALS: BP 182/60
[2020-12-06] MEDS: ISOSORBIDE MON. (IMDUR) 60 MG XR TAB PO SCH (13:07)
[2020-12-06] MEDS: **hydrALAZINE** 50 MG TAB PO SCH (13:07)
[2020-12-06 13:12] VITALS: BP 182/60
[2020-12-06] MEDS: METOPROLOL SUCC (TopROL XL) 50MG **XL** TAB PO SCH (13:12)
[2020-12-06] MEDS: FUROSEMIDE 40 MG TAB PO SCH (13:12)
--- NOTE | 2020-12-06 14:40 | IPN ---
NEPHROLOGY PROGRESS NOTE DATE: 12/06/2020 SUBJECTIVE: Ms. Rowan is seen this morning during hemodialysis. She underwent Permacath placement yesterday and is being dialyzed this morning. She denies any dyspnea, chest pain, nausea or vomiting. Her right arm arteriovenous (AV) fistula is not quite ready for use as yet and she required Permacath placement. PHYSICAL EXAMINATION: Temperature 98 degrees Fahrenheit, heart rate 60 per minute, respiratory rate 18 per minute, blood pressure 150/70 mmHg, oxygen saturation 97% on room air. HEAD: Atraumatic. NECK: Supple and jugular venous distention (JVD) about 7 mm above sternal angle. She has a new Permacath on left upper chest. HEART SOUNDS: Regular. LUNGS: Clear to auscultation. ABDOMEN: Soft and nontender. Bowel sounds are normal. EXTREMITIES: Without any cyanosis or clubbing. Right arm arteriovenous (AV) fistula is patent, but will need to be transpositioned, as it is on the medial side of her arm. NEUROLOGIC: LABORATORY DATA: Today's labs show WBC 8.4, hemoglobin 8.9, hematocrit 27.7, platelets 294. Sodium 138, potassium 5.1, CO2 21, BUN 57, creatinine 3.6. PROBLEMS: 1. End-stage renal disease. Patient has started dialysis with first dialysis treatment today. She is tolerating it well so far. She already has an outpatient dialysis slot and will continue with maintenance hemodialysis on Tuesday, and Tuesday schedule. 2. Hyperkalemia. She had mild hyperkalemia yesterday, which has improved and she is being dialyzed with 2.0 mEq potassium bath. 3. Anemia. Most likely related to end-stage renal disease and iron deficiency. Her iron level is 36. I will give her a dose of Venofer today. I will also order Aranesp 100 mcg if she could get it today. She will be managed in the outpatient dialysis clinic for her anemia. 4. Hypertension. Blood pressure reasonable and she will continue with current antihypertensive medications. We will make adjustments, if needed. 5. Congestive heart failure. Her volume status is reasonably well compensated, though her neck veins are still slightly elevated. We are removing 1 liter of fluid and I will continue with furosemide 40 mg twice a day. Her medications will be adjusted as an outpatient. 6. Pilonidal abscess. She had her abscess drained and remains on ceftaroline. DISPOSITION: From a medical standpoint from the renal view, she can be discharged after dialysis and will need to continue with antibiotics as an outpatient. She will be followed up in the outpatient dialysis clinic.
--- NOTE | 2020-12-06 15:45 | DS.PDOC ---
Discharge Summary General Date of Admission Dec 04, 2020 at 18:10 Date of Discharge Dec 06, 2020 Specialist/Consultants [facility], Dr. Michelle Cordoba and Dr. Mike Cordoba Vascular surgery, Dr. Singer Discharge Summary PROCEDURES PERFORMED DURING STAY: Permacath placement on 12/05/[address] Singer ADMITTING DIAGNOSES: 1. ESRD on dialysis T, Th, Sat 2. Hyperkalemia 3. Skin/soft tissue infection 4. NIDDM 5. COPD 6. Hypertension 7. CAD s/p stent 8. Anxiety/depression 9. Iron deficiency anemia 10. GERD 11. Insomnia DISCHARGE DIAGNOSES: 1. ESRD on dialysis T, Th, Sat 2. Hyperkalemia 3. Skin/soft tissue infection 4. NIDDM 5. COPD 6. Hypertension 7. CAD s/p stent 8. Anxiety/depression 9. Iron deficiency anemia 10. GERD 11. Insomnia COMPLICATIONS/CHIEF COMPLAINT: CKD Stage V Requiring Chronic Dialysis,Hyperkalemia. HISTORY OF PRESENT ILLNESS: Mrs. Rowan is a 64 year old female with polycystic kidney disease, NIDDM, and CAD s/p stents who is here with abnormal labs. She has ESRD and has decided on dialysis. She was seeing Dr. Singer in office for Permacath placement, but labs demonstrated leukocytosis (WBC 15) and hyperkalemia (K 5.5). Patient was sent to the ED for evaluation. Patient was found to have a pilonidal cyst which was suspected to be the cause of gay kocytosis. It was lanced. When I saw patient, she was feeling well. Denies fever, chest pain, worsening dyspnea, worsening abdominal pain, diarrhea, or dysuria. She has chronic dyspnea and abdominal pain (from hernia) unchanged from prior. I reached out to Nephrology who will see the patient. Patient will be admitted for CKD stage V, hyperkalemia, and skin/soft tissue infection. HOSPITAL COURSE: She did well after the drainage of the pilonidal cyst/abscess and antibiotics. Leukocytosis resolved. Hyperkalemia was improved. Vascular surgery, Dr. Singer, placed a Permacath on the left chest on 12/05/20. Patient had her first dialysis on 12/06/20. Patient was seen this morning prior to dialysis. She tells me that she has a dialysis chair for , , and Sat scheduled to be at noon. She denies any chest pain or dyspnea. She feels ready for home and was subsequently discharged home. DISCHARGE MEDICATIONS: Please see below. ALLERGIES: Please see below. PHYSICAL EXAMINATION ON DISCHARGE: VITAL SIGNS: Please see below. GENERAL: Comfortable, in no apparent distress. HEENT: EOMI, sclera clear. NECK: Supple. RESPIRATORY: Lungs clear to auscultation bilaterally. CARDIOVASCULAR: Bradycardic, but regular. ABDOMEN: Soft, nontender, no guarding or rebound tenderness. Normal bowel sounds. MUSCLE SKELETAL: Bilateral pitting edema NEUROLOGICAL: CN 3-12 grossly intact, no focal deficits noted. PSYCHOLOGICAL: Normal mood and affect LABORATORY DATA: Please see below. IMAGING: Radiologist interpretation CXR Patient is rotated somewhat to the right. No definite infiltrate. Cardiomegaly with cephalization of the vasculature.. PROGNOSIS: Good ACTIVITY: As tolerated. DIET: Renal diet and carbohydrate consistent diet DISCHARGE PLAN: Home DISPOSITION: Home DISCHARGE INSTRUCTIONS: 1. Follow up with your PCP within 1 week 2. Follow up with nephrology within 1 week 3. Since you are now on dialysis, I adjusted your levetiracetam from 500mg BID to 1000mg qPM ITEMS TO FOLLOWUP ON ON OUTPATIENT: 1. Potassium levels 2. Blood pressure DISCHARGE CONDITION: Stable Total time spent on discharge planning, discharge summary, and medication reconciliation: 55 minutes. Vital Signs/I&Os Vital Signs Date Time Temp Pulse Resp B/P (MAP) Pulse Ox O2 Delivery O2 Flow Rate FiO2 12/06/20 13:55 18 12/06/20 13:12 59 182/60 12/06/20 12:53 98.0 97 Room Air 12/05/20 15:00 2.0 I&O- Last 24 Hours up to 6 AM 12/06/20 06:00 Intake Total 1340 ml Output Total 700 ml Balance 640 ml Laboratory Data Labs 24H Laboratory Tests 2 12/05/20 16:45: Bedside Glucose (Misc Panel) 78L 12/05/20 21:25: Bedside Glucose (Misc Panel) 150H 12/06/20 05:25: Nucleated Red Blood Cells % (auto) 0.0, Anion Gap 8, Glomerular Filtration Rate 13.6L, Calcium Level 7.6L, Iron Level 36L, Total Iron Binding Capacity 170L, Transferrin % Saturation 21.2, Ferritin 210 12/06/20 13:29: Bedside Glucose (Misc Panel) 135H CBC/BMP Laboratory Tests 12/06/20 05:25 FSBS Laboratory Tests Test 12/05/20 16:45 12/05/20 21:25 12/06/20 13:29 Range/Units Bedside Glucose (Misc Panel) 78 150 135 80-115 MG/DL Microbiology Microbiology 12/04/20 Blood Culture - Preliminary, Resulted No growth after 24 hours . All specim... 12/04/20 Blood Culture - Preliminary, Resulted No growth after 24 hours . All specim... 12/04/20 Blood Culture - Preliminary, Resulted No growth after 24 hours . All specim... Discharge Medications Scheduled Amlodipine Besylate (Amlodipine Besylate) 10 Mg Tablet, 10 MG PO QHS, (Reported) Aspirin (Aspirin EC) 81 Mg Tablet.dr, 81 MG PO DAILY, (Reported) Atorvastatin Calcium (Atorvastatin Calcium) 40 Mg Tablet, 40 MG PO QHS, (Reported) Calcitriol (Calcitriol) 0.25 Mcg Capsule, 0.25 MCG PO DAILY, (Reported) Calcium Acetate (Calcium Acetate) 667 Mg Capsule, 667 MG PO WM, (Reported) Citalopram Hydrobromide (Citalopram HBr) 20 Mg Tablet, 20 MG PO DAILY, (Reported) Clopidogrel Bisulfate (Clopidogrel) 75 Mg Tablet, 75 MG PO DAILY, (Reported) Doxycycline Hyclate (Doxycycline Hyclate) 100 Mg Capsule, 100 MG PO BID Ferrous Sulfate (Ferrous Sulfate) 325 Mg Tablet, 325 MG PO DAILY, (Reported) Furosemide (Furosemide) 40 Mg Tablet, 40 MG PO BID, (Reported) TAKES MORNING AND AFTERNOON Hydralazine HCl (Hydralazine HCl) 50 Mg Tablet, 50 MG PO BID, (Reported) Isosorbide Mononitrate (Isosorbide Mononitrate ER) 60 Mg Tab.er.24h, 60 MG PO DAILY, (Reported) Lipase/Protease/Amylase (Creon Dr 3,000 Units Capsule) 1 Each Capsule.dr, 1 CAP PO WM, (Reported) Melatonin (Melatonin) 5 Mg Capsule, 5 MG PO QHS, (Reported) Metoprolol Succinate (Metoprolol Succinate) 50 Mg Tab.er.24h, 50 MG PO DAILY, (Reported) Pantoprazole Sodium (Pantoprazole Sodium) 40 Mg Tablet.dr, 40 MG PO BID, (Reported) Sitagliptin (Januvia) 50 Mg Tablet, 50 MG PO DAILY, (Reported) Sodium Bicarbonate (Sodium Bicarbonate) 325 Mg Tablet, 325 MG PO WM, (Reported) Sucralfate (Sucralfate) 1 Gm Tablet, 1 GM PO AC, (Reported) levETIRAcetam (levETIRAcetam) 500 Mg Tablet, 1,000 MG PO QPM Scheduled PRN Acetaminophen with Codeine (Acetaminophen-Cod #4 Tablet) 1 Each Tablet, 1 TAB PO Q4H PRN for PAIN LEVEL 5-10, (Reported) Albuterol Sulfate (Albuterol Sulfate Hfa) 8.5 Gm Hfa.aer.ad, 1 PUFF INH QID PRN for SOB/WHEEZING, (Reported) Nitroglycerin (Nitroglycerin) 0.4 Mg Tab.subl, 0.4 MG SL Q5MP PRN for CHEST PAIN, (Reported) Polyethylene Glycol 3350 (Miralax) 119 Gm Powder, 17 GM PO DAILY PRN for CONSTIPATION, (Reported) dilute in 8 ounces of water or juice Allergies Coded Allergies: prochlorperazine (Verified Allergy, Severe, tongue swelling, facial spasms, throat tightness, 07/11/20) sumatriptan (Verified Adverse Reaction, Intermediate, rapid HR, diaphoretic, 07/11/20) KEVIN BECKHAM DO Dec 06, 2020 15:45
[2020-12-08 10:45] LABS: PTH INTACT 307.4 PG/ML (18.5-88.0)
== END 2020-12-06 15:38 | disposition home or self-care (01) | DRG 579 ==
LOC: M ED 13:07 → M ED INP 18:10 → ENRESERVTM 19:06 → ENRESERVDT 19:06 → M PCU 21:19
PROVIDERS: ADMIT Internal Medicine; ATTEND Internal Medicine
PROC: 0H98XZZ Drainage of Buttock Skin, External Approach (ICD-10-PCS; 2020-12-04)
PROC: 02HV33Z Insertion of Infusion Device into Superior Vena Cava, Percutaneous Approach (ICD-10-PCS; 2020-12-05)
PROC: 0JH63XZ Insertion of Tunneled Vascular Access Device into Chest Subcutaneous Tissue and Fascia, Percutaneous Approach (ICD-10-PCS; principal; 2020-12-05 13:57)
PROC: 5A1D70Z Performance of Urinary Filtration, Intermittent, Less than 6 Hours Per Day (ICD-10-PCS; 2020-12-06)
DX: L05.01 Pilonidal cyst with abscess (principal); N18.6 End stage renal disease; Q61.3 Polycystic kidney, unspecified; N25.81 Secondary hyperparathyroidism of renal origin; E87.2 Acidosis; I50.32 Chronic diastolic (congestive) heart failure; I13.2 Hypertensive heart and chronic kidney disease with heart failure and with stage 5 chronic kidney disease, or end stage renal disease; E11.22 Type 2 diabetes mellitus with diabetic chronic kidney disease; J44.9 Chronic obstructive pulmonary disease, unspecified; I25.10 Atherosclerotic heart disease of native coronary artery without angina pectoris; D63.1 Anemia in chronic kidney disease; E87.5 Hyperkalemia; F41.9 Anxiety disorder, unspecified; F32.9 Major depressive disorder, single episode, unspecified; D50.9 Iron deficiency anemia, unspecified; K21.9 Gastro-esophageal reflux disease without esophagitis; F17.210 Nicotine dependence, cigarettes, uncomplicated; G47.00 Insomnia, unspecified; Z99.2 Dependence on renal dialysis; Z20.822 Contact with and (suspected) exposure to COVID-19; Z95.5 Presence of coronary angioplasty implant and graft; Z79.82 Long term (current) use of aspirin; Z79.899 Other long term (current) drug therapy; Z79.02 Long term (current) use of antithrombotics/antiplatelets; Z88.8 Allergy status to other drugs, medicaments and biological substances; Z90.49 Acquired absence of other specified parts of digestive tract

== ENCOUNTER → 2020-12-04 | Outpatient (CLI) | payer MEDICARE, OTHER ==
[~2020-12-04] MED LIST changes: +ACET300T52 PO; +ALBU8.5H INH; +ASPI81TA26 PO; +ATOR40TA75 PO; +CALC1CAP PO; +CITA20TA6 PO; +FERR1TAB8 PO; +HYDR-3911 PO; +ISOS1TAB36 PO; +KEPP10002 PO; +LEVE500T5 PO; +LIDOCAINE 1% MDV 20ML VIAL As Ordered ONE; +LIDOCAINE W/EPINEPHRINE 1% 20ML VIAL As Ordered ONE; +MELA5CAP2 PO; +METO1TAB7 PO; +NITR0.4S14 SL; +SITA50TAB PO; +SUCR1TAB56 PO; +tylenol #4 PO
[2020-12-04 11:12] LABS: HEMATOCRIT 31.9 % (36.0-47.0); HEMOGLOBIN 9.9 g/dl (12.0-15.5); MEAN CORPUSCULAR HEMOGLOBIN 30.2 pg (27.0-33.0); MEAN CORPUSCULAR VOLUME 97.3 fl (80.0-96.0); PLATELET COUNT, AUTOMATED 371 10^3/uL (150-450); RED BLOOD COUNT 3.28 10^6/uL (4.00-5.40)
[2020-12-04 11:45] VITALS: BP 168/72
[2020-12-04 11:51] LABS: ALBUMIN 2.8 GM/DL (3.2-5.2); BILIRUBIN,TOTAL 0.2 MG/DL (0.2-1.0); CALCIUM LEVEL 8.4 MG/DL (8.8-10.2); CREATININE FOR GFR 3.88 MG/DL (0.55-1.30); GLOMERULAR FILTRATION RATE 12.4 (>45); POTASSIUM SERUM 5.5 MEQ/L (3.5-5.1); TOTAL PROTEIN 6.7 GM/DL (6.4-8.2)
--- NOTE | 2020-12-04 13:06 | CR.PDOC ---
General Date of Consultation: Dec 04, 2020 Referring Provider: MARCOS LEIJA MD Consultation Patient was seen in my office earlier today. Since she was scheduled for outpatient hemodialysis to start this Tuesday, decision was made to place Permacath today. Patient had CBC & BMP performed today and showed elevated WBC of 15k and K level of 5.5 . I discussed with covering client service supervisor Dr. Cordoba, because of elevated wbc and K level, it is not safe to place Permacath today, she agreed and decided that patient should be sent to ER for workup and/or admission to hospital for proper workup and inpatient dialysis. Procedure is cancelled and I told the patient about the updated treatment plan. Vital Signs/I&O Vital Signs Date Time Temp Pulse Resp B/P (MAP) Pulse Ox O2 Delivery O2 Flow Rate FiO2 12/04/20 11:45 98.2 52 18 99 Room Air Laboratory Data Labs 24H Laboratory Tests 2 12/04/20 10:27: Nucleated Red Blood Cells % (auto) 0.0, Anion Gap 7L, Glomerular Filtration Rate 12.4L, Calcium Level 8.4L, Total Bilirubin 0.2, Aspartate Amino Transf (AST/SGOT) 4L, Alanine Aminotransferase (ALT/SGPT) 15, Alkaline Phosphatase 152H, Total Protein 6.7, Albumin 2.8L, Albumin/Globulin Ratio 0.7L CBC/BMP Laboratory Tests 12/04/20 10:27 Allergies Coded Allergies: prochlorperazine (Verified Allergy, Severe, tongue swelling, facial spasms, throat tightness, 07/11/20) sumatriptan (Verified Adverse Reaction, Intermediate, rapid HR, diaphoretic, 07/11/20) Home Medications Scheduled Amlodipine Besylate (Amlodipine Besylate) 10 Mg Tablet, 10 MG PO QHS, (Reported) Apixaban (Eliquis) 2.5 Mg Tablet, 2.5 MG PO BID for 30 Days, #60 Aspirin (Ecotrin) 81 Mg Tablet.dr, 81 MG PO DAILY, (Reported) Atorvastatin Calcium (Atorvastatin Calcium) 20 Mg Tablet, 40 MG PO QHS, (Reported) Calcitriol (Calcitriol) 0.25 Mcg Capsule, 1 CAP PO DAILY for 30 Days, #30 (Reported) Ferrous Sulfate (Ferrous Sulfate) 325 Mg Tablet.dr, 1 TAB PO DAILY for 30 Days, #30 (Reported) Furosemide (Furosemide) 20 Mg Tablet, 40 MG PO BID, (Reported) Levetiracetam (Keppra) 1,000 Mg Tablet, 1 TAB PO BID for 30 Days, #60 (Reported) Lipase/Protease/Amylase (Creon Dr 3,000 Units Capsule) 1 Each Capsule.dr, 3,000 UNIT PO AC, (Reported) Metoprolol Tartrate (Metoprolol Tartrate) 25 Mg Tablet, 25 MG PO BID, (Reported) Pantoprazole Sodium (Pantoprazole Sodium) 40 Mg Tablet.dr, 40 MG PO BID, (Reported) Sitagliptin Phosphate (Januvia) 100 Mg Tablet, 50 MG PO DAILY, (Reported) Sodium Bicarbonate (Sodium Bicarbonate) 325 Mg Tablet, 325 MG PO DAILY, (Reported) Scheduled PRN Albuterol Sulfate (Proair Hfa) 8.5 Gm Hfa.aer.ad, 2 PUFF INH TIDP PRN for SOB/WHEEZING, (Reported) Calcium Carbonate (Tums) 200 Mg Tab.chew, 500 MG PO DAILY PRN for INDIGESTION, (Reported) Ipratropium/Albuterol Sulfate (Iprat-Albut 0.5-3(2.5) mg/3 ml) 3 Ml Ampul.neb, 1 VIAL NEB TID PRN for SHORTNESS OF BREATH, (Reported) Polyethylene Glycol 3350 (Miralax) 119 Gm Powder, 17 GM PO DAILY PRN for CONSTIPATION, (Reported) dilute in 8 ounces of water or juice [tylenol #4] , 1 TAB PO Q4-6HP PRN for pain, (Reported) MAGEN AGEE MD Dec 04, 2020 13:06
== END ==
LOC: M IRPRO 10:19
PROVIDERS: ATTEND Surgery Vascular Surgery
DX: N18.6 End stage renal disease (principal); Z53.8 Procedure and treatment not carried out for other reasons

== ENCOUNTER → 2020-12-31 | Outpatient (CLI) | payer MEDICARE, OTHER ==
[~2020-12-31] MED LIST changes: +ACET300T52 PO; +ALBU8.5H INH; +ASPI81TA26 PO; +ATOR40TA75 PO; +CALC1CAP PO; +CITA20TA6 PO; +DOXY100C3 PO; +FERR1TAB8 PO; +HYDR-3911 PO; +ISOS1TAB36 PO; +LEVE500T5 PO; +MELA5CAP2 PO; +METO1TAB7 PO; +NITR0.4S14 SL; +SITA50TAB PO; +SUCR1TAB56 PO
--- NOTE | 2020-12-31 14:10 | REP ---
INDICATION: ESRD EVAL AVF COMPARISON: None. TECHNIQUE: Right upper extremity arterial Doppler and real-time sonographic evaluation 4 arteriovenous fistula hemodialysis access. FINDINGS: Distal brachial artery 2-3 cm proximal to the anastomosis has an AP dimension of 5 mm, monophasic waveform, and peak systolic velocity of 301 centimeters/second. Distal brachial artery distal to the anastomosis was not measured, has a triphasic waveform, and a peak systolic velocity of 75 centimeters/second. The radial artery was not measured, has a triphasic waveform, and a peak systolic velocity of 55 centimeters/second. The ulnar artery was not measured, has a triphasic waveform, and a peak systolic velocity of 62 centimeters/second. At the brachial artery basilic vein anastomosis (AV fistula) the AP dimension is 3.9 mm, has a monophasic waveform, and peak systolic velocities ranging from 655-1540 centimeters/second. 2-3 cm distal from the anastomosis the brachial vein has an AP dimension of 5.7 mm, monophasic waveform, and peak systolic velocities ranging from 553-1740 centimeters/second. 3-5 cm distal to the AV fistula the AP dimension is 7.8 mm, the waveform is monophasic, and the peak systolic velocities range from 282-329 centimeters/second. 5-8 cm distal to the AV fistula the AP dimension is 8 mm, the waveform is monophasic, and the peak systolic velocities range from 238 126. Cm per SEC 8-10 cm from the anastomosis the AP dimension is 7.5 mm, the waveform is monophasic, and the peak systolic velocities range from 191-183 centimeters/second. No significant stenosis is identified. Decreased flow volume was identified beginning 5 cm distal to the anastomosis. IMPRESSION: As above <Electronically signed by Pankaj Moreno > 12/31/20 1014
== END ==
LOC: M RAD 11:25
PROVIDERS: ATTEND Surgery Vascular Surgery
DX: N18.6 End stage renal disease (principal); I73.9 Peripheral vascular disease, unspecified